=== PATIENT | female | born 1980 ===

== ENCOUNTER 2020-02-09 09:05 | Outpatient (REF) | payer MEDICARE, MEDICAID, SELFPAY | END 2020-02-09 09:06 | disposition home or self-care (01) | LOC: HO.LNP 09:05 | PROVIDERS: PCP Internal Medicine; Referring Provider Internal Medicine; Visit Provider Advanced Practice Midwife | DX: Z34.83 Encounter for supervision of other normal pregnancy, third trimester (principal) | CPT/HCPCS: 87081 ==

== ENCOUNTER → 2020-02-14 11:49 | Outpatient (BNVA) | payer MEDICARE, MEDICAID, SELFPAY | PROVIDERS: PCP Internal Medicine; Visit Provider Advanced Practice Midwife | DX: Z76.89 Persons encountering health services in other specified circumstances (principal) ==

== ENCOUNTER → 2020-02-23 09:49 | Outpatient (BNVA) | payer MEDICARE, MEDICAID, SELFPAY | PROVIDERS: PCP Internal Medicine; Visit Provider Obstetrics & Gynecology | DX: Z76.89 Persons encountering health services in other specified circumstances (principal) ==

== ENCOUNTER → 2020-03-01 14:37 | Outpatient (BNVA) | payer MEDICARE, MEDICAID, SELFPAY | PROVIDERS: PCP Internal Medicine; Visit Provider Obstetrics & Gynecology | DX: Z34.03 Encounter for supervision of normal first pregnancy, third trimester (principal) | CPT/HCPCS: 99212 ==

== ENCOUNTER → 2020-03-08 10:41 | Outpatient (BNVA) | payer MEDICARE, MEDICAID, SELFPAY | PROVIDERS: PCP Internal Medicine; Visit Provider Advanced Practice Midwife | DX: Z76.89 Persons encountering health services in other specified circumstances (principal) ==

== ENCOUNTER 2020-04-26 14:20 | Emergency (ER) | payer MEDICARE, MEDICAID, SELFPAY ==
[2020-04-26 14:41] VITALS: BP 145/76; PULSE 78; RESP 18; TEMP 37.4; O2SAT 100; BMI 25.8
--- NOTE | 2020-04-26 16:48 | XR_ITS ---
EXAMINATION: XR CHEST CLINICAL INFORMATION: Fever. Malaise. Back pain. COMPARISON: 06/08/2017 TECHNIQUE: Frontal view of the chest was obtained. FINDINGS: The lungs are well expanded. There is no focal consolidation, edema, or effusion. Bronchial wall thickening is noted. No pneumothorax. The cardiomediastinal silhouette is within normal limits. No acute osseous abnormality. XR/XR chest 1V IMPRESSION: No consolidation. Bronchial wall thickening can be seen with a small airways process such as asthma or atypical/viral infection.
--- NOTE | 2020-04-26 16:48 | ED.GENADULT ---
HPI - General Adult General Chief complaint: General Medical Stated complaint: covid symptoms Time Seen by Provider: 04/26/20 16:38 Source: patient Mode of arrival: ambulatory Limitations: no limitations History of Present Illness HPI narrative: Patient comes to the emergency room complaining of nausea vomiting, generalized body aches, chills, subjective fever, headache, bilateral upper middle and lower back pain, dysuria. Patient states that all her symptoms started 3 days ago. Patient has 4 young children at home, all of whom are healthy. Patient is 1 month , states she had a normal vaginal delivery. Denies diarrhea. Denies known contact to COVID 19 patients, however patient states that she refuses to be tested for COVID complaint: Generalized malaise Related Data Home Medications Medication Instructions Recorded Confirmed albuterol sulfate 90 mcg/actuation INHALATION 02/06/20 02/09/20 aerosol inhaler vitamin with calcium tab PO 02/06/20 02/09/20 no.72-iron 27 mg-folic acid 1 mg tablet aspirin 81 mg tablet,delayed 81 mg PO DAILY 02/09/20 02/09/20 release ferrous sulfate 325 mg (65 mg 325 mg PO BID 02/09/20 02/09/20 iron) tablet Previous Rx's Medication Instructions Recorded cefdinir 300 mg PO Q12H #19 cap 04/26/20 ketorolac 10 mg PO TID 5 Days #15 tab 04/26/20 Allergies Allergy/AdvReac Type Severity Reaction Status Date / Time No Known Allergies Allergy Mild NOT Verified 03/01/20 15:04 APPLICABLE Review of Systems Review of Systems: Constitutional : Patient complaining of fever, chills, fatigue, generalized malaise ENT/Mouth : No Hearing loss, No Ear Pain, No Nasal Congestion, No Sinus Pain, No Hoarseness, No sore throat, No Rhinorrhea, No Swallowing Difficulty Eyes: No Eye Pain, No Swelling, No Redness, No Foreign Body, No Discharge, No Vision Changes Cardiovascular : No Chest Pain, No SOB, No Dyspnea on Exertion, No Orthopnea, No Edema, No Palpitations Respiratory : No Cough, No Sputum, No Wheezing, No Smoke Exposure, No Dyspnea Gastrointestinal : Patient complaining of nausea vomiting and diarrhea, No Constipation, No abdominal Pain, No Hematochezia, No Melena Genitourinary : no irregular bleeding, No Dysuria, No Urinary Frequency, No Hematuria, No Urinary Incontinence, patient complaining dysuria with no hematuria, questionable bilateral flank pain Musculoskeletal : No joint pain, No Myalgias, No Joint Swelling Skin : No Skin Lesions, No rash Neuro : No Weakness, No Numbness, No Paresthesias, No Loss of Consciousness, No Dizziness, No Headache Psych : No Anxiety/Panic, No Depression, No SI/HI/AH/VH, No Social Issues, Heme/Lymph: No Bruising, No Bleeding,No Lymphadenopathy Endocrine : No Polyuria, No Polydipsia, No Temperature Intolerance FOR[facility] Past Medical History Medical History Depression Gestational diabetes Headache in Hx of Family History Family History Father Diabetes mellitus Kidney disease Paternal Grandmother HTN (hypertension) Arthritis Phlebitis Mother HIV (human immunodeficiency virus infection) Social History Social History Alcohol intake: never Smoking Status: Former smoker Advance Directives: No Advance Directives Information Provided: Yes Gender identity: female Physical Exam Vital Signs: Vital Signs: Last Vital Signs Temp 97.6 F 04/26/20 21: Pulse 94 04/26/20 21: Resp 18 04/26/20 21:23 BP 131/66 04/26/20 21: Pulse Ox 100 04/26/20 21:23 Body Mass Index 25.8 Appearance: Alert. Oriented X3. No acute distress. Eyes: Pupils equal, round and reactive to light. ENT: Pharynx normal. Neck: Normal inspection. Neck supple. No lymph nodes noted. No crepitus CVS: Normal heart rate and rhythm. Pulses normal. Normal S1 and S2 Respiratory: No respiratory distress. Breath sounds normal. No Wheezing. No rales Abdomen: Soft and nontender. No rigidity. No distention. good BS x4 Back: Complaining of pain to minimal palpation in upper back, middle back, lower back, complaining of bilateral flank pain Skin: Skin warm and dry. Normal skin color. Normal skin turgor. Extremities: No lower extremity edema. No lower extremity edema. No Lacerations. No Rash Neuro: Oriented X 3. No motor deficit. No sensory deficit. Moving all extermities. No slurred speech. Course Course Course Narrative: Patient states that she feels much better. Patient has a UTI, white blood cell count elevated, patient's lactic acid within normal limits, patient tachycardic at this time. Sepsis is not suspected. Clinically, patient has pyelonephritis. I discussed admitting the patient to the hospital for IV antibiotics. Patient declined, states she has a 1-month-old baby at home and 3 other young kids and has no one to take care of them if she stays in the hospital. I discussed with the patient that we will be discharging home with antibiotics, pain medicine, and instructed to return to the emergency room if she has any worsening symptoms. Medical Decision Making Lab Data Result diagrams: 04/26/20 16:59 04/26/20 17:53 Labs: Lab Results 04/26/20 04/26/20 04/26/20 Range/Units 16:59 16:59 16:59 WBC 14.0 H (4.8-10.8) X10*3/uL RBC 4.29 (4.20-5.50) X10*6/uL Hgb 12.7 (12.0-16.0) g/dl Hct 37.0 (37-47) % MCV 86.2 (80-98) fL MCH 29.6 (27.0-33.0) pg MCHC 34.3 (31.0-35.0) g/dl RDW 12.1 (11.0-16.0) % Plt Count 167 (160-400) X10*3/uL MPV 10.7 (9.4-12.3) fL Immature Gran % (Auto) 0.6 H (0.0-0.4) % Neut % (Auto) 79.9 H (45-73) % Lymph % (Auto) 5.6 L (20-40) % [place] % (Auto) 13.8 H (2-11) % Eos % (Auto) 0.0 (0-4) % Baso % (Auto) 0.1 (0-2) % Lymph # (Auto) 0.8 L (1.2-4.9) X10*3/uL [place] # (Auto) 1.9 H (0.1-1.2) X10*3/uL Eos # (Auto) 0.0 (0.0-0.4) X10*3/uL Baso # (Auto) 0.0 (0.0-0.2) X10*3/uL Abs Immat Gran (auto) 0.09 H (0.00-0.03) X10*3/uL Absolute Neuts (auto) 11.2 H (2.0-8.3) X10*3/uL Absolute Nucleated RBC 0.000 (0.0-0.012) X10*3/uL Nucleated RBC % (auto) 0.0 (0.0-0.2) /100WBC Smear Tech's Comments VERIFIED Sodium Cancelled Potassium Cancelled Chloride Cancelled Carbon Dioxide Cancelled Anion Gap Cancelled BUN Cancelled Creatinine Cancelled Estim Creat Clear Calc Cancelled Estimated GFR Cancelled Random Glucose Cancelled Fasting Glucose (60-99) mg/dL Lactic Acid 1.0 (0.5-2.0) mmol/L Calcium Cancelled Magnesium (1.6-2.6) mg/dL Total Bilirubin Cancelled Direct Bilirubin Cancelled AST Cancelled ALT Cancelled Alkaline Phosphatase Cancelled Total Protein Cancelled Albumin Cancelled Lipase Cancelled Urine Color Urine Appearance Urine pH (5.0-8.0) Ur Specific [place] (1.005-1.025) Urine Protein (NEG-TRACE) MG/DL Urine Glucose (UA) (NEG) MG/DL Urine Ketones (NEG) MG/DL Urine Blood (NEG) Urine Nitrite (NEG) Ur Leukocyte Esterase (NEG) Urine RBC (0) /HPF Urine WBC (0-4) /HPF Urine WBC Clumps Ur Squamous Epith Cells /LPF Urine Bacteria /LPF Urine Test (NEGATIVE) 04/26/20 04/26/20 04/26/20 Range/Units 17:53 17:53 17:53 WBC (4.8-10.8) X10*3/uL RBC (4.20-5.50) X10*6/uL Hgb (12.0-16.0) g/dl Hct (37-47) % MCV (80-98) fL MCH (27.0-33.0) pg MCHC (31.0-35.0) g/dl RDW (11.0-16.0) % Plt Count (160-400) X10*3/uL MPV (9.4-12.3) fL Immature Gran % (Auto) (0.0-0.4) % Neut % (Auto) (45-73) % Lymph % (Auto) (20-40) % [place] % (Auto) (2-11) % Eos % (Auto) (0-4) % Baso % (Auto) (0-2) % Lymph # (Auto) (1.2-4.9) X10*3/uL [place] # (Auto) (0.1-1.2) X10*3/uL Eos # (Auto) (0.0-0.4) X10*3/uL Baso # (Auto) (0.0-0.2) X10*3/uL Abs Immat Gran (auto) (0.00-0.03) X10*3/uL Absolute Neuts (auto) (2.0-8.3) X10*3/uL Absolute Nucleated RBC (0.0-0.012) X10*3/uL Nucleated RBC % (auto) (0.0-0.2) /100WBC Smear Tech's Comments Sodium 137 Potassium 3.1 L Chloride 105 Carbon Dioxide 21 L Anion Gap 14 BUN 7 L Creatinine 0.88 Estim Creat Clear Calc 89.7 Estimated GFR > 60 Random Glucose Fasting Glucose 105 H (60-99) mg/dL Lactic Acid (0.5-2.0) mmol/L Calcium 8.5 Magnesium 2.0 (1.6-2.6) mg/dL Total Bilirubin 0.7 Direct Bilirubin 0.4 AST 18 ALT 30 Alkaline Phosphatase 108 Total Protein 6.5 Albumin 3.8 Lipase < 4 L Urine Color Urine Appearance Urine pH (5.0-8.0) Ur Specific [place] (1.005-1.025) Urine Protein (NEG-TRACE) MG/DL Urine Glucose (UA) (NEG) MG/DL Urine Ketones (NEG) MG/DL Urine Blood (NEG) Urine Nitrite (NEG) Ur Leukocyte Esterase (NEG) Urine RBC (0) /HPF Urine WBC (0-4) /HPF Urine WBC Clumps Ur Squamous Epith Cells /LPF Urine Bacteria /LPF Urine Test (NEGATIVE) 04/26/20 04/26/20 Range/Units 20:18 20:18 WBC (4.8-10.8) X10*3/uL RBC (4.20-5.50) X10*6/uL Hgb (12.0-16.0) g/dl Hct (37-47) % MCV (80-98) fL MCH (27.0-33.0) pg MCHC (31.0-35.0) g/dl RDW (11.0-16.0) % Plt Count (160-400) X10*3/uL MPV (9.4-12.3) fL Immature Gran % (Auto) (0.0-0.4) % Neut % (Auto) (45-73) % Lymph % (Auto) (20-40) % [place] % (Auto) (2-11) % Eos % (Auto) (0-4) % Baso % (Auto) (0-2) % Lymph # (Auto) (1.2-4.9) X10*3/uL [place] # (Auto) (0.1-1.2) X10*3/uL Eos # (Auto) (0.0-0.4) X10*3/uL Baso # (Auto) (0.0-0.2) X10*3/uL Abs Immat Gran (auto) (0.00-0.03) X10*3/uL Absolute Neuts (auto) (2.0-8.3) X10*3/uL Absolute Nucleated RBC (0.0-0.012) X10*3/uL Nucleated RBC % (auto) (0.0-0.2) /100WBC Smear Tech's Comments Sodium Potassium Chloride Carbon Dioxide Anion Gap BUN Creatinine Estim Creat Clear Calc Estimated GFR Random Glucose Fasting Glucose (60-99) mg/dL Lactic Acid (0.5-2.0) mmol/L Calcium Magnesium (1.6-2.6) mg/dL Total Bilirubin Direct Bilirubin AST ALT Alkaline Phosphatase Total Protein Albumin Lipase Urine Color YELLOW Urine Appearance CLOUDY Urine pH 6.0 (5.0-8.0) Ur Specific [place] 1.015 (1.005-1.025) Urine Protein 2+ H (NEG-TRACE) MG/DL Urine Glucose (UA) NEG (NEG) MG/DL Urine Ketones 40 (NEG) MG/DL Urine Blood 3+ H (NEG) Urine Nitrite POS H (NEG) Ur Leukocyte Esterase 2+ H (NEG) Urine RBC 0-2 (0) /HPF Urine WBC TNTC H (0-4) /HPF Urine WBC Clumps NOTED Ur Squamous Epith Cells NONE /LPF Urine Bacteria 1+ /LPF Urine Test NEGATIVE (NEGATIVE) Imaging Data Chest x-ray: Radiologist's impression: The lungs are well expanded. There is no focal consolidation, edema, or effusion. Bronchial wall thickening is noted. No pneumothorax. The cardiomediastinal silhouette is within normal limits. No acute osseous abnormality. XR/XR chest 1V IMPRESSION: No consolidation. Bronchial wall thickening can be seen with a small airways process such as asthma or atypical/viral infection. Discharge Plan Discharge Clinical Impression: Pyelonephritis, Acute viral syndrome Patient Disposition: Home, Self-Care Instructions: Kidney Infection (ED), Viral Syndrome (ED) Additional Instructions: . If you have worsening pain, fever, worsening symptoms, please return to the emergency room. Please follow-up with your primary care physician tomorrow. If you have any worsening or new symptoms, please return to the emergency room or call 911 Prescriptions: New cefdinir 300 mg capsule 300 mg PO Q12H Qty: 19 RF: 0 ketorolac 10 mg tablet 10 mg PO TID 5 Days Qty: 15 RF: 0 No Action PrePlus 27 mg iron- 1 mg tablet PO RF: 0 albuterol sulfate 90 mcg/actuation HFA aerosol inhaler inhalation RF: 0 aspirin [Adult Aspirin Regimen] 81 mg tablet,delayed release (DR/EC) 81 mg PO DAILY RF: 0 ferrous sulfate 325 mg (65 mg iron) tablet 325 mg PO BID RF: 0
[2020-04-26] MEDS: Acetaminophen 325 MG TABLET 650 MG PO (17:04)
[2020-04-26] MEDS: ondansetron HCL 4 MG/2 ML VIAL IVPUSH (17:04)
[2020-04-26] MEDS: 0.9 % Sodium Chloride 1,000 ML 999 ML IVCONT (17:05)
[2020-04-26 17:07] LABS: Basophils Percent Auto 0.1 % (0-2); Hemoglobin 12.7 g/dl (12.0-16.0); Imm Gran Abs Auto 0.09 X10*3/uL (0.00-0.03); Imm Gran Pct Auto 0.6 % (0.0-0.4); Lymphocytes Absolute Auto 0.8 X10*3/uL (1.2-4.9); Lymphocytes Percent Auto 5.6 % (20-40); MANUAL DIFF FLAG SCAN; Mean Corpuscular HGB Conc 34.3 g/dl (31.0-35.0); Mean Corpuscular Hemoglobin 29.6 pg (27.0-33.0); Mean Corpuscular Volume 86.2 fL (80-98); Mean Platelet Volume 10.7 fL (9.4-12.3); Monocytes Absolute Auto 1.9 X10*3/uL (0.1-1.2); Monocytes Percent Auto 13.8 % (2-11); Neutrophils Absolute Auto 11.2 X10*3/uL (2.0-8.3); Neutrophils Percent Auto 79.9 % (45-73); Platelet Count 167 X10*3/uL (160-400); Red Blood Count 4.29 X10*6/uL (4.20-5.50); Red Cell Distribution Width 12.1 % (11.0-16.0); SCAN SMEAR FLAG 1
[2020-04-26 17:28] LABS: SLIDE REVIEW VERIFIED
[2020-04-26 18:34] LABS: Anion Gap 14 (12-20); Blood Urea Nitrogen 7 mg/dL (9-16); Calcium 8.5 mg/dL (8.4-10.2); Carbon Dioxide 21 mmol/L (22-29); Chloride 105 mmol/L (96-108); Creatinine Clr Calc Pharmacy 89.7; Estimated Glomerular Filt Rate > 60; Glucose Fasting 105 mg/dL (60-99); Potassium 3.1 mmol/l (3.3-5.1); Sodium 137 mmol/L (135-145)
[2020-04-26 18:41] LABS: Alanine Aminotransferase 30 U/L (0-31); Albumin Level 3.8 g/dL (3.5-5.0); Alkaline Phosphatase 108 U/L (39-117); Aspartate Amino Transferase 18 U/L (5-31); Bilirubin Direct 0.4 mg/dL (0.0-0.5); Bilirubin Total 0.7 mg/dL (0.0-1.0); Lipase < 4 U/L (8-78); Total Protein 6.5 g/dL (6.5-8.0)
--- NOTE | 2020-04-26 20:16 | PC.NURSE ---
PT AMBULATORY TO BATHROOM FOR URINE SAMPLE. PT ASKING FOR SOMETHING FOR PAIN. PT HAS ALREADY RECEIVED TYLENOL.
[2020-04-26 20:44] LABS: Glucose Urine UA NEG (NEG); Leukocyte Esterase Urine 2+ (NEG); Nitrite Urine POS (NEG); Specific Gravity - Urine 1.015 (1.005-1.025); Urine Blood 3+ (NEG); Urine Ketones 40 MG/DL (NEG); Urine Protein 2+ MG/DL (NEG-TRACE)
[2020-04-26 20:46] LABS: Appearance Urine CLOUDY; Color Urine YELLOW
[2020-04-26] MEDS: Ketorolac Tromethamine 30 MG/ML VIAL IVPUSH (21:18)
[2020-04-26] MEDS: cefTRIAXone sodium 1 GM in 0.9 % Sodium Chloride 50 ML IV (21:18)
[2020-04-26] MEDS: Potassium Chloride ER 20 MEQ TAB.ER.PRT PO (21:18)
[2020-04-26 21:23] VITALS: BP 131/66; PULSE 94; RESP 18; TEMP 36.4; O2SAT 100
[2020-04-26 21:25] LABS: Bacteria Urine 1+ /LPF; RBC Urine 0-2 /HPF (0); WBC Clumps Urine NOTED; WBC Urine TNTC /HPF (0-4)
[2020-04-26 21:31] LABS: UPreg QC Valid YES; Urine Pregnancy NEGATIVE (NEGATIVE)
[2020-04-26 23:07] VITALS: BP 130/74; PULSE 88; O2SAT 97
--- NOTE | 2020-04-27 07:00 | ED.GENADULT ---
HPI - General Adult General Chief complaint: General Medical Stated complaint: covid symptoms Time Seen by Provider: 04/26/20 16:38 Source: patient Mode of arrival: ambulatory Limitations: no limitations Related Data Home Medications Medication Instructions Recorded Confirmed albuterol sulfate 90 mcg/actuation INHALATION 02/06/20 02/09/20 aerosol inhaler vitamin with calcium tab PO 02/06/20 02/09/20 no.72-iron 27 mg-folic acid 1 mg tablet aspirin 81 mg tablet,delayed 81 mg PO DAILY 02/09/20 02/09/20 release ferrous sulfate 325 mg (65 mg 325 mg PO BID 02/09/20 02/09/20 iron) tablet Previous Rx's Medication Instructions Recorded cefdinir 300 mg PO Q12H #19 cap 04/26/20 ketorolac 10 mg PO TID 5 Days #15 tab 04/26/20 Allergies Allergy/AdvReac Type Severity Reaction Status Date / Time No Known Allergies Allergy Mild NOT Verified 03/01/20 15:04 APPLICABLE PMFSH Past Medical History Medical History Depression Gestational diabetes Headache in Hx of Family History Family History Father Diabetes mellitus Kidney disease Paternal Grandmother HTN (hypertension) Arthritis Phlebitis Mother HIV (human immunodeficiency virus infection) Social History Social History Alcohol intake: never Smoking Status: Former smoker Advance Directives: No Advance Directives Information Provided: Yes Gender identity: female Physical Exam Vital Signs: Vital Signs: Last Vital Signs Temp 97.6 F 04/26/20 21:23 Pulse 88 04/26/20 23:07 Resp 18 04/26/20 21:23 BP 130/74 04/26/20 23:07 Pulse Ox 97 04/26/20 23:07 Body Mass Index 25.8 Course Course Course Narrative: Patient called back again and this time patient picked up the phone patient is still feeling chills and fever and sweating advised to come back to the ER for admission for IV antibiotics patient will be coming soon Medical Decision Making Lab Data Result diagrams: 04/26/20 16:59 04/26/20 17:53 Labs: Lab Results 04/26/20 04/26/20 04/26/20 Range/Units 16:59 16:59 16:59 WBC 14.0 H (4.8-10.8) X10*3/uL RBC 4.29 (4.20-5.50) X10*6/uL Hgb 12.7 (12.0-16.0) g/dl Hct 37.0 (37-47) % MCV 86.2 (80-98) fL MCH 29.6 (27.0-33.0) pg MCHC 34.3 (31.0-35.0) g/dl RDW 12.1 (11.0-16.0) % Plt Count 167 (160-400) X10*3/uL MPV 10.7 (9.4-12.3) fL Immature Gran % (Auto) 0.6 H (0.0-0.4) % Neut % (Auto) 79.9 H (45-73) % Lymph % (Auto) 5.6 L (20-40) % [place] % (Auto) 13.8 H (2-11) % Eos % (Auto) 0.0 (0-4) % Baso % (Auto) 0.1 (0-2) % Lymph # (Auto) 0.8 L (1.2-4.9) X10*3/uL [place] # (Auto) 1.9 H (0.1-1.2) X10*3/uL Eos # (Auto) 0.0 (0.0-0.4) X10*3/uL Baso # (Auto) 0.0 (0.0-0.2) X10*3/uL Abs Immat Gran (auto) 0.09 H (0.00-0.03) X10*3/uL Absolute Neuts (auto) 11.2 H (2.0-8.3) X10*3/uL Absolute Nucleated RBC 0.000 (0.0-0.012) X10*3/uL Nucleated RBC % (auto) 0.0 (0.0-0.2) /100WBC Smear Tech's Comments VERIFIED Sodium Cancelled Potassium Cancelled Chloride Cancelled Carbon Dioxide Cancelled Anion Gap Cancelled BUN Cancelled Creatinine Cancelled Estim Creat Clear Calc Cancelled Estimated GFR Cancelled Random Glucose Cancelled Fasting Glucose (60-99) mg/dL Lactic Acid 1.0 (0.5-2.0) mmol/L Calcium Cancelled Magnesium (1.6-2.6) mg/dL Total Bilirubin Cancelled Direct Bilirubin Cancelled AST Cancelled ALT Cancelled Alkaline Phosphatase Cancelled Total Protein Cancelled Albumin Cancelled Lipase Cancelled Urine Color Urine Appearance Urine pH (5.0-8.0) Ur Specific [place] (1.005-1.025) Urine Protein (NEG-TRACE) MG/DL Urine Glucose (UA) (NEG) MG/DL Urine Ketones (NEG) MG/DL Urine Blood (NEG) Urine Nitrite (NEG) Ur Leukocyte Esterase (NEG) Urine RBC (0) /HPF Urine WBC (0-4) /HPF Urine WBC Clumps Ur Squamous Epith Cells /LPF Urine Bacteria /LPF Urine Test (NEGATIVE) 04/26/20 04/26/20 04/26/20 Range/Units 17:53 17:53 17:53 WBC (4.8-10.8) X10*3/uL RBC (4.20-5.50) X10*6/uL Hgb (12.0-16.0) g/dl Hct (37-47) % MCV (80-98) fL MCH (27.0-33.0) pg MCHC (31.0-35.0) g/dl RDW (11.0-16.0) % Plt Count (160-400) X10*3/uL MPV (9.4-12.3) fL Immature Gran % (Auto) (0.0-0.4) % Neut % (Auto) (45-73) % Lymph % (Auto) (20-40) % [place] % (Auto) (2-11) % Eos % (Auto) (0-4) % Baso % (Auto) (0-2) % Lymph # (Auto) (1.2-4.9) X10*3/uL [place] # (Auto) (0.1-1.2) X10*3/uL Eos # (Auto) (0.0-0.4) X10*3/uL Baso # (Auto) (0.0-0.2) X10*3/uL Abs Immat Gran (auto) (0.00-0.03) X10*3/uL Absolute Neuts (auto) (2.0-8.3) X10*3/uL Absolute Nucleated RBC (0.0-0.012) X10*3/uL Nucleated RBC % (auto) (0.0-0.2) /100WBC Smear Tech's Comments Sodium 137 Potassium 3.1 L Chloride 105 Carbon Dioxide 21 L Anion Gap 14 BUN 7 L Creatinine 0.88 Estim Creat Clear Calc 89.7 Estimated GFR > 60 Random Glucose Fasting Glucose 105 H (60-99) mg/dL Lactic Acid (0.5-2.0) mmol/L Calcium 8.5 Magnesium 2.0 (1.6-2.6) mg/dL Total Bilirubin 0.7 Direct Bilirubin 0.4 AST 18 ALT 30 Alkaline Phosphatase 108 Total Protein 6.5 Albumin 3.8 Lipase < 4 L Urine Color Urine Appearance Urine pH (5.0-8.0) Ur Specific [place] (1.005-1.025) Urine Protein (NEG-TRACE) MG/DL Urine Glucose (UA) (NEG) MG/DL Urine Ketones (NEG) MG/DL Urine Blood (NEG) Urine Nitrite (NEG) Ur Leukocyte Esterase (NEG) Urine RBC (0) /HPF Urine WBC (0-4) /HPF Urine WBC Clumps Ur Squamous Epith Cells /LPF Urine Bacteria /LPF Urine Test (NEGATIVE) 04/26/20 04/26/20 Range/Units 20:18 20:18 WBC (4.8-10.8) X10*3/uL RBC (4.20-5.50) X10*6/uL Hgb (12.0-16.0) g/dl Hct (37-47) % MCV (80-98) fL MCH (27.0-33.0) pg MCHC (31.0-35.0) g/dl RDW (11.0-16.0) % Plt Count (160-400) X10*3/uL MPV (9.4-12.3) fL Immature Gran % (Auto) (0.0-0.4) % Neut % (Auto) (45-73) % Lymph % (Auto) (20-40) % [place] % (Auto) (2-11) % Eos % (Auto) (0-4) % Baso % (Auto) (0-2) % Lymph # (Auto) (1.2-4.9) X10*3/uL [place] # (Auto) (0.1-1.2) X10*3/uL Eos # (Auto) (0.0-0.4) X10*3/uL Baso # (Auto) (0.0-0.2) X10*3/uL Abs Immat Gran (auto) (0.00-0.03) X10*3/uL Absolute Neuts (auto) (2.0-8.3) X10*3/uL Absolute Nucleated RBC (0.0-0.012) X10*3/uL Nucleated RBC % (auto) (0.0-0.2) /100WBC Smear Tech's Comments Sodium Potassium Chloride Carbon Dioxide Anion Gap BUN Creatinine Estim Creat Clear Calc Estimated GFR Random Glucose Fasting Glucose (60-99) mg/dL Lactic Acid (0.5-2.0) mmol/L Calcium Magnesium (1.6-2.6) mg/dL Total Bilirubin Direct Bilirubin AST ALT Alkaline Phosphatase Total Protein Albumin Lipase Urine Color YELLOW Urine Appearance CLOUDY Urine pH 6.0 (5.0-8.0) Ur Specific [place] 1.015 (1.005-1.025) Urine Protein 2+ H (NEG-TRACE) MG/DL Urine Glucose (UA) NEG (NEG) MG/DL Urine Ketones 40 (NEG) MG/DL Urine Blood 3+ H (NEG) Urine Nitrite POS H (NEG) Ur Leukocyte Esterase 2+ H (NEG) Urine RBC 0-2 (0) /HPF Urine WBC TNTC H (0-4) /HPF Urine WBC Clumps NOTED Ur Squamous Epith Cells NONE /LPF Urine Bacteria 1+ /LPF Urine Test NEGATIVE (NEGATIVE) Discharge Plan Discharge Clinical Impression: Pyelonephritis, Acute viral syndrome Patient Disposition: Home, Self-Care Instructions: Kidney Infection (ED), Viral Syndrome (ED) Additional Instructions: . If you have worsening pain, fever, worsening symptoms, please return to the emergency room. Please follow-up with your primary care physician tomorrow. If you have any worsening or new symptoms, please return to the emergency room or call 911 Prescriptions: New cefdinir 300 mg capsule 300 mg PO Q12H Qty: 19 RF: 0 ketorolac 10 mg tablet 10 mg PO TID 5 Days Qty: 15 RF: 0 No Action PrePlus 27 mg iron- 1 mg tablet PO RF: 0 albuterol sulfate 90 mcg/actuation HFA aerosol inhaler inhalation RF: 0 aspirin [Adult Aspirin Regimen] 81 mg tablet,delayed release (DR/EC) 81 mg PO DAILY RF: 0 ferrous sulfate 325 mg (65 mg iron) tablet 325 mg PO BID RF: 0 Interventions: ED Discharge Assessment Last Done: 04/26/20 23:08 Discharge Date/Time: 04/26/20 23:09
== END 2020-04-26 23:09 | disposition home or self-care (01) ==
PROVIDERS: Emergency Provider Emergency Medicine
DX: B34.9 Viral infection, unspecified (principal); N12 Tubulo-interstitial nephritis, not specified as acute or chronic
CPT/HCPCS: 36415; 71045; 80048; 80076; 81001; 81025; 83605; 83690; 83735; 85025; 87040; 87077; 87086; 87088; 87186; 96361; 96365; 96375; 99283; 99284; J0696; J1885; J2405

== ENCOUNTER 2020-04-27 10:43 | Emergency (ER) | payer MEDICARE, MEDICAID, SELFPAY ==
[2020-04-27 10:57] VITALS: BP 126/75; PULSE 106; RESP 18; TEMP 37.3; O2SAT 100; BMI 24.4
--- NOTE | 2020-04-27 10:59 | CT_ITS ---
EXAMINATION: CT ABDOMEN AND PELVIS WITH CONTRAST CLINICAL INFORMATION: Flank pain. COMPARISON: CT scan of the abdomen and pelvis dated 08/25/2006. TECHNIQUE: Multidetector volumetric images were obtained from the superior aspect of the liver through the pubic symphysis following administration 85 mL of Omnipaque 350 intravenous contrast. Sagittal and coronal reformatted images were obtained on the technologist's workstation. Oral contrast: No This CT examination was performed using dose optimization techniques as appropriate, variously including the following: *Automated exposure control *Adjustment of mA and/or kV according to patient size (this includes techniques or standardized protocols for targeted exams where dose is matched to indication/reason for exam; i.e. extremities or head) *Use of iterative reconstruction technique DLP: 801 mGy-cm FINDINGS: LUNG BASES: The visualized lung bases are unremarkable. LIVER, GALLBLADDER, AND BILIARY TREE: Mild hepatic enlargement and decreased attenuation without focal abnormality. PANCREAS: Unremarkable. SPLEEN: Borderline enlargement measuring up to 13.7 cm. No focal abnormality. ADRENAL GLANDS: Unremarkable. KIDNEYS AND URETERS: The right kidney shows mild asymmetric enlargement with cortical striations. This is seen to a lesser extent in the left kidney. No nephrolithiasis or hydroureteronephrosis. BLADDER: Incompletely distended without focal abnormality. GASTROINTESTINAL TRACT: The stomach, small bowel, appendix and large bowel are unremarkable. ABDOMINAL WALL: No significant hernia is appreciated. LYMPH NODES: No lymphadenopathy. VASCULAR: Unremarkable. PELVIC VISCERA: Interval enlargement of the uterus without focal abnormality. No adnexal abnormality. OSSEOUS STRUCTURES: Unremarkable. CT/CT abdomen pelvis w con IMPRESSION: 1. Bilateral pyelonephritis, right greater than left without other associated abnormality. 2. Hepatic and splenic prominence without focal abnormality. This is more pronounced compared the previous study and could be secondary to the patient's status. Mild steatosis could not be stated. Correlation with liver function tests is recommended. 3. Interval enlargement of the uterus is consistent with the patient's status. This critical result was discussed with Dr. Ayoub at 1:30 PM on 04/27/2020 and it was ascertained that the content and urgency of the report was understood at the time of direct communication.
--- NOTE | 2020-04-27 11:00 | ED.RECABL ---
HPI - Recheck/Abnormal Lab/Rx General Chief Complaint: Recheck/Abnormal Lab/Rx Stated Complaint: ABNORMAL LAB RESULTS Time Seen by Provider: 04/27/20 10:46 Source: patient and old records reviewed Mode of arrival: ambulatory Limitations: no limitations History of Present Illness complaint: abnormal lab (2/2 GNR in blood) Initial visit (ago): day(s) (1 day on 04/26) Initial visit for: other (pyelonephritis refused admit) Returns today for: called because of abnormal lab/test Symptoms since prior visit: worsening pain Context: called for abnormal lab result Associated symptoms: fever, chills, malaise, nausea and abdominal pain Treatments prior to arrival: other (unable to fill her Rx at this time) Related Data Home Medications Medication Instructions Recorded Confirmed albuterol sulfate 90 mcg/actuation INHALATION 02/06/20 02/09/20 aerosol inhaler vitamin with calcium tab PO 02/06/20 02/09/20 no.72-iron 27 mg-folic acid 1 mg tablet aspirin 81 mg tablet,delayed 81 mg PO DAILY 02/09/20 02/09/20 release ferrous sulfate 325 mg (65 mg 325 mg PO BID 02/09/20 02/09/20 iron) tablet Previous Rx's Medication Instructions Recorded cefdinir 300 mg PO Q12H #19 cap 04/26/20 ketorolac 10 mg PO TID 5 Days #15 tab 04/26/20 Allergies Allergy/AdvReac Type Severity Reaction Status Date / Time No Known Allergies Allergy Mild NOT Verified 04/27/20 11:00 APPLICABLE Review of Systems Review of Systems: Constitutional : pos Fever, pos Chills ENT/Mouth : No sore throat Eyes: No Eye Pain, No Swelling, No Redness Cardiovascular : No Chest Pain, No SOB Respiratory : No Cough, No Sputum, No Wheezing Gastrointestinal : positive Nausea, no Vomiting, No Diarrhea, positive abdominal pain Genitourinary : positive Dysuria, positive urinary frequency, no Hematuria, positive Flank Pain, positive hesitancy Musculoskeletal : No joint pain, No Myalgias Skin : No Skin Lesions, No rash Neuro : pos Weakness, No Numbness, No Headache Psych : No Anxiety/Panic, No Depression Heme/Lymph: No Bruising, No Lymphadenopathy Endocrine : No Polyuria, No Polydipsia All other systems reviewed and are negative [facility] Past Medical History Attestation statement: The following information was validated with the patient. Medical History Depression Gestational diabetes Headache in Hx of Family History Family History Father Diabetes mellitus Kidney disease Paternal Grandmother HTN (hypertension) Arthritis Phlebitis Mother HIV (human immunodeficiency virus infection) Social History Social History Alcohol intake: never Smoking Status: Never smoker Use of substances other than those prescribed or required for medical reasons: No Advance Directives: No Advance Directives Information Provided: Yes Gender identity: female Physical Exam Vital Signs: Vital Signs: Last Vital Signs Temp 99.2 F 04/27/20 12:50 Pulse 79 04/27/20 12:50 Resp 20 04/27/20 12:50 BP 110/61 04/27/20 12:50 Pulse Ox 99 04/27/20 12:50 Body Mass Index 24.4 Appearance: Alert. Oriented X3. in pain, anxious, mild acute distress. Eyes: Pupils equal, round and reactive to light. ENT: Pharynx dry MMM Neck: Normal inspection. Neck supple. CVS: Normal heart rate and rhythm. Pulses normal. Respiratory: No respiratory distress. Breath sounds normal. Abdomen: Soft and moderate L CVA tenderness. Skin: Skin warm and dry. pale skin color. Normal skin turgor. Extremities: No lower extremity edema. No calf ttp Neuro: Oriented X 3. No motor deficit. No sensory deficit. Course Course Course Narrative: patient still wants to leave AMA, alert and oriented x 3, aware I am concerned for life threatening infection and states she has no one to care for her children CT Scan bilateral pyelonephritis - patient still refuses to stay MDM - Recheck/Abnormal Lab/Rx MDM Narrative Medical decision making narrative: 39 yo female with pyelonephritis just seen on 04/26 now has 2/2 GNR bacteremia has sig L flank pain will repeat labs, cultures, dose with IV ceftriaxone and CT scan for perinephric abscess - patient states she cannot stay in the hospital she adamantly refuses I told her this was life threatening and she could , she states she is aware and has no one to care for her children, she also was not able to fill her Rx, she states she plans to come to the ED daily for IV antibiotis Lab Data Result diagrams: 04/27/20 11:07 04/27/20 11:41 Labs: Lab Results 04/27/20 04/27/20 04/27/20 Range/Units 11:07 11:07 11:07 WBC 14.6 H (4.8-10.8) X10*3/uL RBC 4.19 L (4.20-5.50) X10*6/uL Hgb 12.3 (12.0-16.0) g/dl Hct 36.2 L (37-47) % MCV 86.4 (80-98) fL MCH 29.4 (27.0-33.0) pg MCHC 34.0 (31.0-35.0) g/dl RDW 12.4 (11.0-16.0) % Plt Count 182 (160-400) X10*3/uL MPV 11.4 (9.4-12.3) fL Immature Gran % (Auto) 0.8 H (0.0-0.4) % Neut % (Auto) 80.2 H (45-73) % Lymph % (Auto) 6.9 L (20-40) % [place] % (Auto) 12.0 H (2-11) % Eos % (Auto) 0.0 (0-4) % Baso % (Auto) 0.1 (0-2) % Lymph # (Auto) 1.0 L (1.2-4.9) X10*3/uL [place] # (Auto) 1.7 H (0.1-1.2) X10*3/uL Eos # (Auto) 0.0 (0.0-0.4) X10*3/uL Baso # (Auto) 0.0 (0.0-0.2) X10*3/uL Abs Immat Gran (auto) 0.11 H (0.00-0.03) X10*3/uL Absolute Neuts (auto) 11.7 H (2.0-8.3) X10*3/uL Absolute Nucleated RBC 0.000 (0.0-0.012) X10*3/uL Nucleated RBC % (auto) 0.0 (0.0-0.2) /100WBC Hold Blue Top SEE NOTE Sodium Cancelled Potassium Cancelled Chloride Cancelled Carbon Dioxide Cancelled Anion Gap Cancelled BUN Cancelled Creatinine Cancelled Estim Creat Clear Calc Cancelled Estimated GFR Cancelled Random Glucose Cancelled Lactic Acid (0.5-2.0) mmol/L Calcium Cancelled Magnesium Cancelled 04/27/20 04/27/20 Range/Units 11:07 11:41 WBC (4.8-10.8) X10*3/uL RBC (4.20-5.50) X10*6/uL Hgb (12.0-16.0) g/dl Hct (37-47) % MCV (80-98) fL MCH (27.0-33.0) pg MCHC (31.0-35.0) g/dl RDW (11.0-16.0) % Plt Count (160-400) X10*3/uL MPV (9.4-12.3) fL Immature Gran % (Auto) (0.0-0.4) % Neut % (Auto) (45-73) % Lymph % (Auto) (20-40) % [place] % (Auto) (2-11) % Eos % (Auto) (0-4) % Baso % (Auto) (0-2) % Lymph # (Auto) (1.2-4.9) X10*3/uL [place] # (Auto) (0.1-1.2) X10*3/uL Eos # (Auto) (0.0-0.4) X10*3/uL Baso # (Auto) (0.0-0.2) X10*3/uL Abs Immat Gran (auto) (0.00-0.03) X10*3/uL Absolute Neuts (auto) (2.0-8.3) X10*3/uL Absolute Nucleated RBC (0.0-0.012) X10*3/uL Nucleated RBC % (auto) (0.0-0.2) /100WBC Hold Blue Top Sodium 134 L Potassium 3.2 L Chloride 106 Carbon Dioxide 19 L Anion Gap 12 BUN 7 L Creatinine 0.85 Estim Creat Clear Calc 92.8 Estimated GFR > 60 Random Glucose 130 H Lactic Acid 1.5 (0.5-2.0) mmol/L Calcium 7.5 L D Magnesium 1.9 Discharge Plan Discharge Clinical Impression: Pyelonephritis, Bacteremia Patient Disposition: Left Against Medical Advice Instructions: Kidney Infection (ED), Against Medical Advice (ED), Bacteremia (ED) Additional Instructions: return to ED for any worsening symptoms or concerns COME BACK TO THE ED you need IV antibiotics Prescriptions: No Action cefdinir 300 mg capsule 300 mg PO Q12H Qty: 19 RF: 0 ketorolac 10 mg tablet 10 mg PO TID 5 Days Qty: 15 RF: 0 PrePlus 27 mg iron- 1 mg tablet PO RF: 0 albuterol sulfate 90 mcg/actuation HFA aerosol inhaler inhalation RF: 0 aspirin [Adult Aspirin Regimen] 81 mg tablet,delayed release (DR/EC) 81 mg PO DAILY RF: 0 ferrous sulfate 325 mg (65 mg iron) tablet 325 mg PO BID RF: 0 Referrals: Ade Ayoub DO [Emergency Provider] - 1 day
[2020-04-27 11:11] VITALS: RESP 16
[2020-04-27] MEDS: cefTRIAXone sodium 1 GM in 0.9 % Sodium Chloride 50 ML IV (11:11)
[2020-04-27] MEDS: ondansetron HCL 4 MG/2 ML VIAL IVPUSH (11:11)
[2020-04-27] MEDS: Morphine Sulfate 4 MG/ML CARTRIDGE IVPUSH (11:11)
[2020-04-27] MEDS: 0.9 % Sodium Chloride 1,000 ML 999 ML IVCONT (11:11)
[2020-04-27] MEDS: Acetaminophen 325 MG TABLET 650 MG PO (11:12)
[2020-04-27 11:16] LABS: Basophils Percent Auto 0.1 % (0-2); Hematocrit 36.2 % (37-47); Hemoglobin 12.3 g/dl (12.0-16.0); Imm Gran Abs Auto 0.11 X10*3/uL (0.00-0.03); Imm Gran Pct Auto 0.8 % (0.0-0.4); Lymphocytes Percent Auto 6.9 % (20-40); Mean Corpuscular Hemoglobin 29.4 pg (27.0-33.0); Mean Corpuscular Volume 86.4 fL (80-98); Mean Platelet Volume 11.4 fL (9.4-12.3); Monocytes Absolute Auto 1.7 X10*3/uL (0.1-1.2); Neutrophils Absolute Auto 11.7 X10*3/uL (2.0-8.3); Neutrophils Percent Auto 80.2 % (45-73); Platelet Count 182 X10*3/uL (160-400); Red Blood Count 4.19 X10*6/uL (4.20-5.50); Red Cell Distribution Width 12.4 % (11.0-16.0); SCAN SMEAR FLAG 1; White Blood Count 14.6 X10*3/uL (4.8-10.8)
[2020-04-27 11:17] LABS: MANUAL DIFF FLAG NO
--- NOTE | 2020-04-27 11:23 | PC.NURSE ---
pt refuses juan veras md aware
[2020-04-27 11:35] LABS: Lactic Acid 1.5 mmol/L (0.5-2.0)
[2020-04-27 12:08] VITALS: BP 114/59; PULSE 94; RESP 18; TEMP 37.5; O2SAT 98
[2020-04-27] MEDS: iohexoL 350 MG/ML 100 ML INFUS..BTL 85 ML IV (12:09)
[2020-04-27 12:16] LABS: Anion Gap 12 (12-20); Blood Urea Nitrogen 7 mg/dL (9-16); Calcium 7.5 mg/dL (8.4-10.2); Carbon Dioxide 19 mmol/L (22-29); Chloride 106 mmol/L (96-108); Creatinine Clr Calc Pharmacy 92.8; Estimated Glomerular Filt Rate > 60; Glucose Random 130 mg/dL (60-115); Magnesium 1.9 mg/dL (1.6-2.6); Potassium 3.2 mmol/l (3.3-5.1); Sodium 134 mmol/L (135-145)
[2020-04-27] MEDS: Potassium Chloride ER 20 MEQ TAB.ER.PRT 40 MEQ PO (12:44)
[2020-04-27] MEDS: Calcium Gluconate/NaCl,Iso-Osm 2 GM/100 ML PLAST..BAG IV (12:46)
[2020-04-27 12:50] VITALS: BP 110/61; PULSE 79; RESP 20; TEMP 37.3; O2SAT 99
== END 2020-04-27 14:11 | disposition left against medical advice (07) ==
PROVIDERS: Emergency Provider Emergency Medicine; PCP Internal Medicine
DX: N12 Tubulo-interstitial nephritis, not specified as acute or chronic (principal); B96.89 Other specified bacterial agents as the cause of diseases classified elsewhere; R50.9 Fever, unspecified; R10.9 Unspecified abdominal pain; R79.89 Other specified abnormal findings of blood chemistry; Z79.899 Other long term (current) drug therapy; Z20.828 Contact with and (suspected) exposure to other viral communicable diseases
CPT/HCPCS: 36415; 74177; 80048; 83605; 83735; 85025; 87040; 87147; 96361; 96365; 96367; 96375; 99284; J0610; J0696; J2270; J2405; Q9967

== ENCOUNTER 2020-04-28 09:13 | Emergency (ER) | payer MEDICARE, MEDICAID, SELFPAY ==
--- NOTE | 2020-04-28 09:17 | ED.GENADULT ---
HPI - General Adult General Chief complaint: General Medical <Ade Ayoub DO - Last Filed: 04/28/20 09:28> Stated complaint: IV antibiotics <Ade Ayoub DO - Last Filed: 04/28/20 09:28> Time Seen by Provider: 04/28/20 09:14 <Ade Ayoub DO - Last Filed: 04/28/20 09:28> Source: patient and old records reviewed <Ade Ayoub DO - Last Filed: 04/28/20 09:28> Mode of arrival: ambulatory <Ade Ayoub DO - Last Filed: 04/28/20 09:28> Limitations: no limitations <Ade Ayoub DO - Last Filed: 04/28/20 09:28> History of Present Illness HPI narrative: 2/2 GNR from 04/26 blood cultures from bilateral pyelo has not been able to stay in the hospital due to childcare issues, has been coming daily for IV antibiotics <Ade Ayoub DO - Last Filed: 04/28/20 09:28> MD complaint: IV antibiotics for pyelo and known GNR in blood culture 2/2 <Ade Ayoub DO - Last Filed: 04/28/20 09:28> Onset (ago): day(s) (3) <Ade Ayoub DO - Last Filed: 04/28/20 09:28> Location: back <Ade Ayoub DO - Last Filed: 04/28/20 09:28> Radiation: back <Ade Ayoub DO - Last Filed: 04/28/20 09:28> Severity: moderate <Ade Ayoub DO - Last Filed: 04/28/20 09:28> Quality: aching <Ade Ayoub DO - Last Filed: 04/28/20 09:28> Relieving factors: none <Ade Ayoub DO - Last Filed: 04/28/20 09:28> Exacerbating factors: none <Ade Ayoub DO - Last Filed: 04/28/20 09:28> Associated symptoms: fever/chills and loss of appetite <Ade Ayoub DO - Last Filed: 04/28/20 09:28> Treatments prior to arrival: other (3rd dose of IV antibiotics) <Ade Ayoub DO - Last Filed: 04/28/20 09:28> Related Data Home medications: Home Medications Medication Instructions Recorded Confirmed albuterol sulfate 90 mcg/actuation INHALATION 02/06/20 02/09/20 aerosol inhaler vitamin with calcium tab PO 02/06/20 02/09/20 no.72-iron 27 mg-folic acid 1 mg tablet aspirin 81 mg tablet,delayed 81 mg PO DAILY 02/09/20 02/09/20 release ferrous sulfate 325 mg (65 mg 325 mg PO BID 02/09/20 02/09/20 iron) tablet Previous Rx's Medication Instructions Recorded cefdinir 300 mg PO Q12H #19 cap 04/26/20 ketorolac 10 mg PO TID 5 Days #15 tab 04/26/20 <Ade Ayoub DO - Last Filed: 04/28/20 09:28> Allergies/adverse reactions: Allergies Allergy/AdvReac Type Severity Reaction Status Date / Time No Known Allergies Allergy Mild NOT Verified 04/27/20 11:00 APPLICABLE <Ade Ayoub DO - Last Filed: 04/28/20 09:28> Review of Systems Review of Systems: Constitutional : No Weight loss, pos Fever, pos Chills ENT/Mouth : No sore throat, No Rhinorrhea Eyes: No Swelling, No Redness Cardiovascular : No Chest Pain, No SOB, NoEdema Respiratory : No Cough, No Sputum, No Wheezing Gastrointestinal : Positive Nausea, no Vomiting, no Diarrhea, positive abdominal Pain, No Hematochezia, No Melena Back: bilateral back pain Genitourinary : No Dysuria, No Urinary Frequency, No Hematuria, No Urgency Musculoskeletal : No joint pain, No Myalgias, No Joint Swelling Skin : No Skin Lesions, No rash Neuro : No Weakness, No Numbness, No Dizziness, No Headache Psych : No Anxiety/Panic, No Depression Heme/Lymph: No Bruising, No Lymphadenopathy Endocrine : No Polyuria, No Polydipsia All other systems reviewed and are negative. <DO Jaswinder Felipe Last Filed: 04/28/20 09:28> [facility] Past Medical History Attestation statement: The following information was validated with the patient. <DO Jaswinder Felipe Last Filed: 04/28/20 09:28> Medical History: Medical History Depression Gestational diabetes Headache in Hx of <Ade Ayoub DO - Last Filed: 04/28/20 09:28> Family History Family History: Family History Father Diabetes mellitus Kidney disease Paternal Grandmother HTN (hypertension) Arthritis Phlebitis Mother HIV (human immunodeficiency virus infection) <Ade Ayoub DO - Last Filed: 04/28/20 09:28> Social History Social History: Social History Alcohol intake: never Smoking Status: Never smoker Advance Directives: No Advance Directives Information Provided: Yes Gender identity: female <Ade Ayoub DO - Last Filed: 04/28/20 09:28> Physical Exam Vital Signs: Vital Signs: Last Vital Signs Temp 99.3 F 04/28/20 10:39 Pulse 76 04/28/20 10:39 Resp 16 04/28/20 10:39 BP 104/83 04/28/20 10:39 Pulse Ox 100 04/28/20 10:39 Body Mass Index 25.5 <Ade Ayoub DO - Last Filed: 04/28/20 09:28> Vital Signs: Last Vital Signs Temp 99.3 F 04/28/20 10:39 Pulse 76 04/28/20 10:39 Resp 16 04/28/20 10:39 BP 104/83 04/28/20 10:39 Pulse Ox 100 04/28/20 10:39 Body Mass Index 25.5 <Helio August NP - Last Filed: 04/28/20 14:19> Appearance: Alert. Oriented X3. No acute distress. Eyes: Pupils equal, round and reactive to light. ENT: Pharynx normal. Neck: Normal inspection. Neck supple. CVS: Normal heart rate and rhythm. Pulses normal. Respiratory: No respiratory distress. Breath sounds normal. Abdomen: Soft and nontender. Back: bilateral CVA ttp moderate Skin: Skin warm and dry. Normal skin color. Normal skin turgor. Extremities: No lower extremity edema. No calf ttp Neuro: Oriented X 3. No motor deficit. No sensory deficit. <Ade Ayoub DO - Last Filed: 04/28/20 09:28> Course Course Course Narrative: lab will not have susceptibilitis until tomorrow <Ade Ayoub DO - Last Filed: 04/28/20 09:28> Reevaluation(s) Reevaluation #1: 1400 Call from lab with blood culture 1 of 2 positive with Gram-positive cocci in cluster. Attending who evaluated patient this morning aware known history of bacteremia currently being treated IV antibiotics refusing admission. Will return for additional biotics tomorrow. <Helio August NP - Last Filed: 04/28/20 14:19> Medical Decision Making MDM Narrative Medical decision making narrative: 39 yo female with known pyelo and 2/2 GNR bacteremia from 04/26 comes today for her dose of IV antibiotics, refuses admission due to childcare issues, will redose with IV ceftriaxone will still not stay in ED, call to lab for organism and susceptibility - overall today the patient does look better <Ade Ayoub DO - Last Filed: 04/28/20 09:28> Discharge Plan Discharge Clinical Impression: Bacteremia <Ade Ayoub DO - Last Filed: 04/28/20 09:28> Patient Disposition: Home, Self-Care <Ade Ayoub DO - Last Filed: 04/28/20 09:28> Instructions: Bacteremia (ED) <Ade Ayoub DO - Last Filed: 04/28/20 09:28> Additional Instructions: return to ED for any worsening symptoms or concerns come back tomorrow for repeat dose <Ade Ayoub DO - Last Filed: 04/28/20 09:28> Prescriptions: No Action cefdinir 300 mg capsule 300 mg PO Q12H Qty: 19 RF: 0 ketorolac 10 mg tablet 10 mg PO TID 5 Days Qty: 15 RF: 0 PrePlus 27 mg iron- 1 mg tablet PO RF: 0 albuterol sulfate 90 mcg/actuation HFA aerosol inhaler inhalation RF: 0 aspirin [Adult Aspirin Regimen] 81 mg tablet,delayed release (DR/EC) 81 mg PO DAILY RF: 0 ferrous sulfate 325 mg (65 mg iron) tablet 325 mg PO BID RF: 0 <DO Jaswinder Felipe Last Filed: 04/28/20 09:28> Interventions: ED Discharge Assessment Last Done: 04/28/20 11:03 <Ade Ayoub DO - Last Filed: 04/28/20 09:28> Discharge Date/Time: 04/28/20 11:04 <Ade Ayoub DO - Last Filed: 04/28/20 09:28> Print Language: Bengali <Ade Ayoub DO - Last Filed: 04/28/20 09:28>
[2020-04-28 09:23] VITALS: BP 132/77; PULSE 77; RESP 16; TEMP 37.3; O2SAT 100; BMI 25.5
[2020-04-28] MEDS: cefTRIAXone sodium 1 GM in 0.9 % Sodium Chloride 50 ML IV (09:43)
[2020-04-28 10:39] VITALS: BP 104/83; PULSE 76; RESP 16; TEMP 37.4; O2SAT 100
[2020-04-28] MEDS: Acetaminophen 325 MG TABLET 650 MG PO (10:59)
== END 2020-04-28 11:04 | disposition home or self-care (01) ==
PROVIDERS: Emergency Provider Emergency Medicine; PCP Internal Medicine
DX: R78.81 Bacteremia (principal)
CPT/HCPCS: 96372; 99284; J0696

== ENCOUNTER 2020-04-29 10:35 | Emergency (ER) | payer MEDICARE, MEDICAID, SELFPAY ==
[2020-04-29 10:39] VITALS: BP 136/74; PULSE 76; RESP 17; TEMP 37.3; O2SAT 99; BMI 25.5
--- NOTE | 2020-04-29 10:53 | ED.GENADULT ---
HPI - General Adult General Chief complaint: General Medical Stated complaint: blood transfusion Time Seen by Provider: 04/29/20 10:39 Source: patient Mode of arrival: ambulatory Limitations: no limitations History of Present Illness MD complaint: bacteremia from 04/26 Onset (ago): day(s) (5) Location: back Radiation: non-radiation Severity: moderate Quality: aching Pain Consistency: constant Relieving factors: other (has been doing much better with IV antibiotics) Exacerbating factors: none Associated symptoms: other (has some nausea) Treatments prior to arrival: other (4th dose of IV antibiotics today) Related Data Home Medications Medication Instructions Recorded Confirmed albuterol sulfate 90 mcg/actuation INHALATION 02/06/20 02/09/20 aerosol inhaler vitamin with calcium tab PO 02/06/20 02/09/20 no.72-iron 27 mg-folic acid 1 mg tablet aspirin 81 mg tablet,delayed 81 mg PO DAILY 02/09/20 02/09/20 release ferrous sulfate 325 mg (65 mg 325 mg PO BID 02/09/20 02/09/20 iron) tablet Previous Rx's Medication Instructions Recorded cefdinir 300 mg PO Q12H #19 cap 04/26/20 ketorolac 10 mg PO TID 5 Days #15 tab 04/26/20 Allergies Allergy/AdvReac Type Severity Reaction Status Date / Time No Known Allergies Allergy Mild NOT Verified 04/27/20 11:00 APPLICABLE Review of Systems Review of Systems: Constitutional : No Fever, No Chills ENT/Mouth : No sore throat Eyes: No Eye Pain, No Swelling, No Redness Cardiovascular : No Chest Pain, No SOB Respiratory : No Cough, No Sputum, No Wheezing Gastrointestinal : positive Nausea, no Vomiting, No Diarrhea, n abdominal pain Genitourinary : positive Dysuria, positive urinary frequency, no Hematuria, positive Flank Pain, no hesitancy Musculoskeletal : No joint pain, No Myalgias Skin : No Skin Lesions, No rash Neuro : No Weakness, No Numbness, No Headache Psych : No Anxiety/Panic, No Depression Heme/Lymph: No Bruising, No Lymphadenopathy Endocrine : No Polyuria, No Polydipsia All other systems reviewed and are negative PMFSH Past Medical History Attestation statement: The following information was validated with the patient. Medical History Depression Gestational diabetes Headache in Hx of Family History Family History Father Diabetes mellitus Kidney disease Paternal Grandmother HTN (hypertension) Arthritis Phlebitis Mother HIV (human immunodeficiency virus infection) Social History Social History Alcohol intake: never Smoking Status: Never smoker Gender identity: female Physical Exam Vital Signs: Vital Signs: Last Vital Signs Temp 99.1 F 04/29/20 10:39 Pulse 76 04/29/20 10:39 Resp 17 04/29/20 10:39 BP 136/74 04/29/20 10:39 Pulse Ox 99 04/29/20 10:39 Body Mass Index 25.5 Appearance: Alert. Oriented X3. No acute distress. Eyes: Pupils equal, round and reactive to light. ENT: Pharynx normal. Neck: Normal inspection. Neck supple. CVS: Normal heart rate and rhythm. Pulses normal. Respiratory: No respiratory distress. Breath sounds normal. Abdomen: Soft and non-tender. Back: bilateral mild CVA ttp Skin: Skin warm and dry. Normal skin color. Normal skin turgor. Extremities: No lower extremity edema. No calf ttp Neuro: Oriented X 3. No motor deficit. No sensory deficit. Medical Decision Making MDM Narrative Medical decision making narrative: 39 yo here for 4th dose of IV Ceftriaxone had GNR 2/2 E. Coli now S to cephalosporins has 10 days of cefdinir can take 10 day course after her 4 days of IV antibiotics, overall looks good, no need to come back to ED unless she spikes a fever or feels worse Discharge Plan Discharge Clinical Impression: Pyelonephritis, Bacteremia Patient Disposition: Home, Self-Care Instructions: Kidney Infection (ED), Bacteremia (ED) Additional Instructions: return to ED for any worsening symptoms or concerns TAKE YOUR ANTIBIOTICS Prescriptions: No Action cefdinir 300 mg capsule 300 mg PO Q12H Qty: 19 RF: 0 ketorolac 10 mg tablet 10 mg PO TID 5 Days Qty: 15 RF: 0 PrePlus 27 mg iron- 1 mg tablet PO RF: 0 albuterol sulfate 90 mcg/actuation HFA aerosol inhaler inhalation RF: 0 aspirin [Adult Aspirin Regimen] 81 mg tablet,delayed release (DR/EC) 81 mg PO DAILY RF: 0 ferrous sulfate 325 mg (65 mg iron) tablet 325 mg PO BID RF: 0
[2020-04-29] MEDS: cefTRIAXone sodium 1 GM in 0.9 % Sodium Chloride 50 ML IV (11:09)
[2020-04-29] MEDS: oxyCODONE HCl Immed Release 5 MG TABLET PO (11:33)
== END 2020-04-29 11:48 | disposition home or self-care (01) ==
PROVIDERS: Emergency Provider Emergency Medicine; PCP Internal Medicine
DX: N12 Tubulo-interstitial nephritis, not specified as acute or chronic (principal); R78.81 Bacteremia; Z79.2 Long term (current) use of antibiotics
CPT/HCPCS: 96365; 99284; J0696

== ENCOUNTER → 2020-06-07 09:08 | Outpatient (BNVA) | payer MEDICARE, MEDICAID, SELFPAY | PROVIDERS: Visit Provider Advanced Practice Midwife | DX: Z30.9 Encounter for contraceptive management, unspecified (principal); Z93.2 Ileostomy status; N92.1 Excessive and frequent menstruation with irregular cycle; F43.9 Reaction to severe stress, unspecified; Z39.2 Encounter for routine postpartum follow-up | CPT/HCPCS: 99212 ==

== ENCOUNTER → 2020-06-10 11:31 | Outpatient (BNVA) | payer MEDICARE, MEDICAID, SELFPAY | PROVIDERS: Visit Provider Advanced Practice Midwife | DX: Z30.9 Encounter for contraceptive management, unspecified (principal) | CPT/HCPCS: 81025; 96372; 99212; J1050 ==

== ENCOUNTER → 2020-09-02 11:01 | Outpatient (BNVA) | payer MEDICARE, MEDICAID, SELFPAY | PROVIDERS: Visit Provider Advanced Practice Midwife ==

== ENCOUNTER → 2020-09-03 08:59 | Outpatient (BNVA) | payer MEDICARE, MEDICAID, SELFPAY | PROVIDERS: Visit Provider Advanced Practice Midwife | DX: Z30.9 Encounter for contraceptive management, unspecified (principal) | CPT/HCPCS: 96372; 99211; J1050 ==

== ENCOUNTER → 2020-11-25 11:06 | Outpatient (BNVA) | payer MEDICARE, MEDICAID, SELFPAY | PROVIDERS: PCP Physician Assistant; Visit Provider Advanced Practice Midwife | DX: Z30.9 Encounter for contraceptive management, unspecified (principal) | CPT/HCPCS: 96372; 99211 ==

== ENCOUNTER 2021-03-14 10:06 | Outpatient (REF) | payer MEDICARE, MEDICAID, SELFPAY ==
[2021-03-14 11:56] LABS: Hematocrit 39.5 % (37.0-47.0); Hemoglobin 13.3 g/dl (12.0-16.0); Mean Corpuscular HGB Conc 33.7 g/dl (31.0-35.0); Mean Corpuscular Hemoglobin 30.1 pg (27.0-33.0); Mean Corpuscular Volume 89.4 fL (80.0-98.0); Mean Platelet Volume 10.4 fL (9.4-12.3); Platelet Count 253 X10*3/uL (160-400); Red Blood Count 4.42 X10*6/uL (4.20-5.50); Red Cell Distribution Width 11.9 % (11.0-16.0); White Blood Count 7.8 X10*3/uL (4.8-10.8)
[2021-03-14 12:24] LABS: Alanine Aminotransferase 25 U/L (0-31); Albumin Level 4.1 g/dL (3.5-5.0); Alkaline Phosphatase 89 U/L (39-117); Anion Gap 10 (12-20); Aspartate Amino Transferase 17 U/L (5-31); Bilirubin Total 0.7 mg/dL (0.0-1.0); Blood Urea Nitrogen 9 mg/dL (9-16); Carbon Dioxide 25 mmol/L (22-29); Chloride 108 mmol/L (96-108); Estimated Glomerular Filt Rate > 60; Glucose Fasting 110 mg/dL (60-99); Iron 71 mcg/dL (30-160); Percent Iron Saturation 20 % (15-50); Potassium 3.9 mmol/L (3.3-5.1); Sodium 139 mmol/L (135-145); Total Iron Binding Capacity 355 mcg/dL (228-428); Total Protein 6.8 g/dL (6.5-8.0); Unsaturated Iron Binding 284 ug/dL
[2021-03-14 13:04] LABS: Syphilis Screen Nonreactive (Nonreactive)
[2021-03-15 13:14] LABS: CT PCR NOT DETECTED (Not Detect.); NG PCR NOT DETECTED (Not Detect.)
[2021-03-16 10:50] LABS: BV Int Neg Control Negative (Negative); BV Int Pos Control Positive (Positive)
[2021-03-17 08:31] LABS: HBc Num1 8.71 S/CO (0.00-0.79); HIV AB/AG Nonreactive (Nonreactive); HIV Num 1 0.05 S/CO (0.00-0.99); ~HepC Num1 0.14 S/CO (0.00-0.79); ~Hepatitis C Antibody Nonreactive (Nonreactive)
[2021-03-17 09:29] LABS: HBc Num2 9.12 S/CO; HBc Num3 9.09 S/CO; Hepatitis B Core Antibody Reactive (Nonreactive)
[2021-03-18 10:31] LABS: Hepatitis B Core Antibody IgM NON-REACTIVE (NON-REACTIVE)
== END 2021-03-14 10:07 | disposition home or self-care (01) ==
LOC: HO.LAB 10:06
PROVIDERS: PCP Physician Assistant; Visit Provider Advanced Practice Midwife
DX: N89.8 Other specified noninflammatory disorders of vagina (principal); R35.0 Frequency of micturition; D50.9 Iron deficiency anemia, unspecified; I10 Essential (primary) hypertension; Z20.2 Contact with and (suspected) exposure to infections with a predominantly sexual mode of transmission
CPT/HCPCS: 36415; 80053; 81003; 81025; 83540; 84443; 85027; 86704; 86705; 86780; 86803; 87389; 87480; 87491; 87510; 87591; 87660; 99212

== ENCOUNTER → 2021-03-31 11:45 | Outpatient (BNVA) | payer MEDICARE, MEDICAID, SELFPAY | PROVIDERS: PCP Physician Assistant; Visit Provider Advanced Practice Midwife | DX: Z30.9 Encounter for contraceptive management, unspecified (principal) | CPT/HCPCS: 96372; 99211 ==

== ENCOUNTER 2021-05-03 15:04 | Emergency (ER) | payer MEDICARE, MEDICAID, SELFPAY ==
[2021-05-03 15:29] VITALS: BP 115/70; PULSE 88; RESP 19; TEMP 36.6; O2SAT 99; BMI 27.0
[2021-05-03 16:37] LABS: MANUAL DIFF FLAG NO
[2021-05-03 16:40] LABS: Basophils Absolute Auto 0.1 X10*3/uL (0.0-0.2); Eosinophils Absolute Auto 0.9 X10*3/uL (0.0-0.4); Eosinophils Percent Auto 10.2 % (0-4); Hematocrit 40.4 % (37.0-47.0); Hemoglobin 13.4 g/dl (12.0-16.0); Imm Gran Abs Auto 0.02 X10*3/uL (0.00-0.03); Imm Gran Pct Auto 0.2 % (0.0-0.4); Lymphocytes Absolute Auto 2.6 X10*3/uL (1.2-4.9); Lymphocytes Percent Auto 30.5 % (20-40); Mean Corpuscular HGB Conc 33.2 g/dl (31.0-35.0); Mean Corpuscular Hemoglobin 29.6 pg (27.0-33.0); Mean Corpuscular Volume 89.4 fL (80.0-98.0); Mean Platelet Volume 10.3 fL (9.4-12.3); Monocytes Absolute Auto 0.8 X10*3/uL (0.1-1.2); Monocytes Percent Auto 9.3 % (2-11); Neutrophils Absolute Auto 4.1 x10*3/uL (2.0-8.3); Neutrophils Percent Auto 48.8 % (45-73); Platelet Count 247 X10*3/uL (160-400); Red Blood Count 4.52 X10*6/uL (4.20-5.50); Red Cell Distribution Width 11.9 % (11.0-16.0); White Blood Count 8.4 X10*3/uL (4.8-10.8)
[2021-05-03 16:53] LABS: Anion Gap 12 (12-20); Blood Urea Nitrogen 12 mg/dL (9-16); Calcium 9.8 mg/dL (8.4-10.2); Carbon Dioxide 25 mmol/L (22-29); Chloride 109 mmol/L (96-108); Estimated Glomerular Filt Rate > 60; Glucose Random 90 mg/dL (60-115); Potassium 4.2 mmol/L (3.3-5.1); Sodium 142 mmol/L (135-145); UPreg QC Valid YES; Urine Pregnancy POSITIVE (NEGATIVE)
[2021-05-03 16:55] LABS: Appearance Urine CLEAR; Color Urine YELLOW; Glucose Urine UA NEG (NEG); Leukocyte Esterase Urine NEG (NEG); Nitrite Urine NEG (NEG); PH 7.5 (5.0-8.0); Specific Gravity - Urine 1.015 (1.005-1.025); Urine Blood NEG (NEG); Urine Ketones NEG (NEG); Urine Protein NEG (NEG-TRACE)
[2021-05-03 16:59] LABS: COVID-19 Test Negative (Negative)
== END 2021-05-03 19:00 | disposition left against medical advice (07) ==
PROVIDERS: Emergency Provider Emergency Medicine; PCP Physician Assistant
DX: N93.9 Abnormal uterine and vaginal bleeding, unspecified (principal); Z20.822 Contact with and (suspected) exposure to COVID-19
CPT/HCPCS: 36415; 80048; 81003; 81025; 85025; 87635; 99283

== ENCOUNTER 2021-05-05 11:33 | Outpatient (REF) | payer MEDICARE, MEDICAID, SELFPAY ==
[2021-05-05 12:30] LABS: HCG Quantitative 615 mIU/mL
== END 2021-05-05 11:34 | disposition home or self-care (01) ==
LOC: HO.LAB 11:33
PROVIDERS: PCP Obstetrics & Gynecology; Visit Provider Obstetrics & Gynecology
DX: O20.9 Hemorrhage in early pregnancy, unspecified (principal)
CPT/HCPCS: 36415; 84702

== ENCOUNTER 2021-05-06 13:45 | Outpatient (REF) | payer MEDICARE, MEDICAID, SELFPAY ==
[2021-05-07 12:00] LABS: BV Int Neg Control Negative (Negative); BV Int Pos Control Positive (Positive)
[2021-05-07 12:49] LABS: CT PCR NOT DETECTED (Not Detect.); NG PCR NOT DETECTED (Not Detect.)
== END 2021-05-06 13:46 | disposition home or self-care (01) ==
LOC: HO.LAB 13:45
PROVIDERS: Visit Provider Advanced Practice Midwife
DX: O20.9 Hemorrhage in early pregnancy, unspecified (principal)
CPT/HCPCS: 87480; 87491; 87510; 87591; 87660; 99212

== ENCOUNTER 2021-05-07 11:41 | Outpatient (REF) | payer MEDICARE, MEDICAID, SELFPAY ==
[2021-05-07 13:18] LABS: HCG Quantitative 696 mIU/mL
== END 2021-05-07 11:42 | disposition home or self-care (01) ==
LOC: HO.LAB 11:41
PROVIDERS: PCP Internal Medicine; Visit Provider Obstetrics & Gynecology
DX: O20.9 Hemorrhage in early pregnancy, unspecified (principal)
CPT/HCPCS: 36415; 84702

== ENCOUNTER 2021-05-08 11:32 | Outpatient (REF) | payer MEDICARE, MEDICAID, SELFPAY ==
--- NOTE | ~2021-05-08 | US_ITS ---
EXAMINATION: US OBSTETRICAL ULTRASOUND CLINICAL INFORMATION: Vaginal bleeding early . Age 40. bHCG 696 (3-4 weeks). COMPARISON: None. LMP: Unknown. TECHNIQUE: Ultrasound of the maternal pelvis is performed using transabdominal and transvaginal transducers. Transvaginal imaging is performed due to inadequate visualization transabdominally. M-mode Doppler is also performed. FINDINGS: The uterus is anteverted and smooth in contour. The endometrial thickness is 11 mm. There is trace fluid in the lower uterine segment and endocervical canal. No visible intrauterine gestational sac. MATERNAL ADNEXA: The right maternal ovary measures 5.9 x 3.4 x 4.9 cm. There is probable heterogeneous corpus luteum cyst within the right ovary measuring 5.3 x 3.1 x 3.6 cm. There is normal color flow and arterial and venous waveforms and no ovarian torsion. The left maternal ovary measures 2.1 x 1.3 x 1.4 cm. No left adnexal mass. Trace fluid cul-de-sac. No significant ascites. Preliminary report provided to Dr. Almonte at 1302 hours by secure text. US/US OB pelvic and transvaginal IMPRESSION: 1. Endometrial double wall thickness 11 mm. No visible intrauterine gestational sac. 2. Trace fluid lower uterine segment and endocervix. 3. Probable right corpus luteum cyst measuring 5.3 x 3.1 x 3.6 cm. No right ovarian torsion. Left ovary unremarkable. Trace pelvic fluid. No overt ascites.
[2021-05-08 14:50] LABS: HCG Quantitative 647 mIU/mL
== END 2021-05-08 11:33 | disposition home or self-care (01) ==
LOC: HO.US 11:32
PROVIDERS: PCP Internal Medicine; Visit Provider Obstetrics & Gynecology
DX: O20.9 Hemorrhage in early pregnancy, unspecified (principal); O34.81 Maternal care for other abnormalities of pelvic organs, first trimester; N83.11 Corpus luteum cyst of right ovary; O09.291 Supervision of pregnancy with other poor reproductive or obstetric history, first trimester; O09.511 Supervision of elderly primigravida, first trimester; Z3A.01 Less than 8 weeks gestation of pregnancy
CPT/HCPCS: 36415; 76801; 76817; 84702; 87491; 87591; 99212

== ENCOUNTER 2021-05-08 16:35 | Outpatient (REF) | payer MEDICARE, MEDICAID, SELFPAY ==
[2021-05-09 01:48] LABS: CT PCR NOT DETECTED (Not Detect.); NG PCR NOT DETECTED (Not Detect.)
== END 2021-05-08 16:36 | disposition home or self-care (01) ==
LOC: HO.LAB 16:35
PROVIDERS: Visit Provider Obstetrics & Gynecology
DX: Z13.89 Encounter for screening for other disorder (principal)
CPT/HCPCS: 87491; 87591

== ENCOUNTER 2021-05-11 11:53 | Outpatient (REF) | payer MEDICARE, MEDICAID, SELFPAY ==
[2021-05-11 12:52] LABS: HCG Quantitative 519 mIU/mL
== END 2021-05-11 11:54 | disposition home or self-care (01) ==
LOC: HO.LAB 11:53
PROVIDERS: Visit Provider Obstetrics & Gynecology
DX: Z32.01 Encounter for pregnancy test, result positive (principal); O09.511 Supervision of elderly primigravida, first trimester; Z3A.00 Weeks of gestation of pregnancy not specified
CPT/HCPCS: 36415; 84702

== ENCOUNTER → 2021-05-12 08:22 | Outpatient (BNVA) | payer MEDICARE, MEDICAID, SELFPAY | PROVIDERS: Visit Provider Obstetrics & Gynecology | DX: O03.9 Complete or unspecified spontaneous abortion without complication (principal) | CPT/HCPCS: 99212 ==

== ENCOUNTER 2021-05-15 12:09 | Outpatient (REF) | payer MEDICARE, MEDICAID, SELFPAY ==
[2021-05-15 13:32] LABS: HCG Quantitative 649 mIU/mL
== END 2021-05-15 12:10 | disposition home or self-care (01) ==
LOC: HO.LAB 12:09
PROVIDERS: PCP Internal Medicine; Visit Provider Obstetrics & Gynecology
DX: Z13.89 Encounter for screening for other disorder (principal)
CPT/HCPCS: 36415; 84702; 99212

== ENCOUNTER 2021-05-15 14:51 | Outpatient (REF) | payer MEDICARE, MEDICAID, SELFPAY ==
--- NOTE | ~2021-05-15 | US_ITS ---
EXAMINATION: US OBSTETRICAL ULTRASOUND CLINICAL INFORMATION: Elevated hCG level. COMPARISON: Ultrasound OB 05/08/2021. LMP: Not sure or approximately 4 months ago. TECHNIQUE: Transabdominal and a limited transabdominal ultrasound imaging was performed. FINDINGS: There is a midline anteverted uterus without any gestational sac or pole. The uterus measures 9.1 x 4.9 x 6.1 cm. The endometrial thickness in the fundus measures 0.9 cm. The myometrium is homogeneous. The left ovary is not seen. There is a complex heterogeneous right ovary. Within the center of the right ovary there is hypoechoic area within echogenic wall. Whether this represents a complex cyst, intrauterine gestational sac is questioned. Normal vascularity was seen in the right ovary. There is no free fluid in the pelvis. No other adnexal mass seen. US/US OB pelvic and transvaginal IMPRESSION: Complex heterogeneous right ovary with a central hypoechoic area with an hyperechoic wall. Question complex cyst or an intrauterine ectopic. No pole was seen however. The right ovary was complex and minimally heterogenous on the previous study. A corpus luteal cyst was seen on the last ultrasound exam 04/28/2021, not seen on the present exam. The left ovary and uterus appears unremarkable. There is no free fluid in the pelvis. Results were discussed with referring physician Dr. Almonte at 4:45 PM.
== END 2021-05-15 14:52 | disposition home or self-care (01) ==
LOC: HO.US 14:51
PROVIDERS: PCP Internal Medicine; Visit Provider Obstetrics & Gynecology
DX: O09.529 Supervision of elderly multigravida, unspecified trimester (principal); O26.899 Other specified pregnancy related conditions, unspecified trimester; R79.89 Other specified abnormal findings of blood chemistry
CPT/HCPCS: 36415; 76801; 76817; 84702; 99212

== ENCOUNTER 2021-05-16 09:07 | Outpatient (REF) | payer MEDICARE, MEDICAID, SELFPAY ==
[2021-05-16 10:01] LABS: Hematocrit 40.1 % (37.0-47.0); Hemoglobin 13.5 g/dl (12.0-16.0); Mean Corpuscular HGB Conc 33.7 g/dl (31.0-35.0); Mean Corpuscular Hemoglobin 29.3 pg (27.0-33.0); Mean Corpuscular Volume 87.2 fL (80.0-98.0); Mean Platelet Volume 10.2 fL (9.4-12.3); Platelet Count 252 X10*3/uL (160-400); Red Cell Distribution Width 11.8 % (11.0-16.0); White Blood Count 4.2 X10*3/uL (4.8-10.8)
[2021-05-16 10:18] LABS: Alanine Aminotransferase 30 U/L (0-31); Aspartate Amino Transferase 15 U/L (5-31); Estimated Glomerular Filt Rate > 60
[2021-05-16 10:24] LABS: HCG Quantitative 592 mIU/mL
== END 2021-05-16 09:08 | disposition home or self-care (01) ==
LOC: HO.US 09:07
PROVIDERS: PCP Internal Medicine; Visit Provider Obstetrics & Gynecology
DX: Z34.90 Encounter for supervision of normal pregnancy, unspecified, unspecified trimester (principal)
CPT/HCPCS: 36415; 82565; 84450; 84460; 84702; 85027; 99212

== ENCOUNTER 2021-05-19 09:07 | Emergency (ER) | payer MEDICARE, MEDICAID, SELFPAY ==
--- NOTE | ~2021-05-19 | US_ITS ---
EXAMINATION: US OBSTETRICAL ULTRASOUND CLINICAL INFORMATION: Lower abdominal pain. Question ectopic right ovary COMPARISON: Ultrasound pelvis 05/15/2021. TECHNIQUE: Transabdominal and transvaginal imaging of pelvis is performed. FINDINGS: Again visualized is enlarged right ovary measuring 7.1 x 6.1 x 4.8 cm and volume 408.85 mL. There is a complex cystic and solid lesion within the right ovary similar to previous study no definite pole, yolk sac or heart beat seen at this time. The uterus is anteverted measuring 8.1 cm in length, 5.1 cm in AP and 5.2 cm in transverse dimension. No intrauterine gestational sac seen. The left ovary is not seen. There is no free fluid in the cul-de-sac. US/US OB pelvic and transvaginal IMPRESSION: Unremarkable uterus. Significantly enlarged right ovary with complex cystic and solid areas seen within the right ovary. No definite yolk sac, pole or heartbeat seen. The findings are similar previous study from 05/15/2021. Left ovary is not seen.
[2021-05-19 09:13] VITALS: BP 132/60; PULSE 88; RESP 19; TEMP 36.6; O2SAT 100; BMI 26.4
== END 2021-05-19 18:53 | disposition left against medical advice (07) ==
PROVIDERS: Emergency Provider Emergency Medicine; PCP Internal Medicine
DX: O00.90 Unspecified ectopic pregnancy without intrauterine pregnancy (principal)
CPT/HCPCS: 36415; 76801; 76817; 84702; 85027; 99212; 99282; 99284

== ENCOUNTER 2021-05-19 14:35 | Outpatient (REF) | payer MEDICARE, MEDICAID, SELFPAY ==
[2021-05-19 15:17] LABS: Hematocrit 43.2 % (37.0-47.0); Hemoglobin 14.4 g/dl (12.0-16.0); Mean Corpuscular HGB Conc 33.3 g/dl (31.0-35.0); Mean Corpuscular Hemoglobin 29.4 pg (27.0-33.0); Mean Corpuscular Volume 88.3 fL (80.0-98.0); Mean Platelet Volume 10.7 fL (9.4-12.3); Platelet Count 235 X10*3/uL (160-400); Red Blood Count 4.89 X10*6/uL (4.20-5.50); Red Cell Distribution Width 11.6 % (11.0-16.0); White Blood Count 4.9 X10*3/uL (4.8-10.8)
[2021-05-19 15:45] LABS: HCG Quantitative 490 mIU/mL
== END 2021-05-19 14:36 | disposition home or self-care (01) ==
LOC: HO.LAB 14:35
PROVIDERS: PCP Internal Medicine; Visit Provider Obstetrics & Gynecology
DX: Z13.89 Encounter for screening for other disorder (principal)
CPT/HCPCS: 36415; 84702; 85027

== ENCOUNTER 2021-05-22 11:09 | Outpatient (REF) | payer MEDICARE, MEDICAID, SELFPAY ==
[2021-05-22 12:33] LABS: HCG Quantitative 329 mIU/mL
== END 2021-05-22 11:10 | disposition home or self-care (01) ==
LOC: HO.LAB 11:09
PROVIDERS: PCP Internal Medicine; Visit Provider Obstetrics & Gynecology
DX: O00.90 Unspecified ectopic pregnancy without intrauterine pregnancy (principal)
CPT/HCPCS: 36415; 84702; 99212

== ENCOUNTER 2021-05-26 13:06 | Outpatient (REF) | payer MEDICARE, MEDICAID, SELFPAY ==
[2021-05-26 13:24] LABS: Hematocrit 29.4 % (37.0-47.0); Mean Corpuscular Hemoglobin 29.2 pg (27.0-33.0); Mean Platelet Volume 9.6 fL (9.4-12.3); Platelet Count 239 X10*3/uL (160-400); Red Blood Count 3.42 X10*6/uL (4.20-5.50); Red Cell Distribution Width 11.8 % (11.0-16.0); White Blood Count 6.5 X10*3/uL (4.8-10.8)
[2021-05-26 14:03] LABS: HCG Quantitative 141 mIU/mL
== END 2021-05-26 13:07 | disposition home or self-care (01) ==
LOC: HO.LAB 13:06
PROVIDERS: Visit Provider Obstetrics & Gynecology
DX: O00.90 Unspecified ectopic pregnancy without intrauterine pregnancy (principal)
CPT/HCPCS: 36415; 84702; 85027; 99212

== ENCOUNTER 2021-06-03 15:35 | Outpatient (REF) | payer MEDICARE, MEDICAID, SELFPAY ==
[2021-06-03 16:54] LABS: HCG Quantitative 36 mIU/mL
== END 2021-06-03 15:36 | disposition home or self-care (01) ==
LOC: HO.LAB 15:35
PROVIDERS: PCP Internal Medicine; Visit Provider Obstetrics & Gynecology
DX: O00.90 Unspecified ectopic pregnancy without intrauterine pregnancy (principal)
CPT/HCPCS: 36415; 84702

== ENCOUNTER → 2021-06-04 14:08 | Outpatient (BNVA) | payer MEDICARE, MEDICAID, SELFPAY | PROVIDERS: PCP Internal Medicine; Visit Provider Obstetrics & Gynecology | DX: O00.90 Unspecified ectopic pregnancy without intrauterine pregnancy (principal) | CPT/HCPCS: Q3014 ==

== ENCOUNTER 2021-06-24 14:23 | Outpatient (REF) | payer MEDICARE, MEDICAID, SELFPAY ==
[2021-06-24 15:57] LABS: HCG Quantitative 10 mIU/mL
== END 2021-06-24 14:24 | disposition home or self-care (01) ==
LOC: HO.LAB 14:23
PROVIDERS: PCP Internal Medicine; Visit Provider Obstetrics & Gynecology
DX: O00.90 Unspecified ectopic pregnancy without intrauterine pregnancy (principal); N83.299 Other ovarian cyst, unspecified side
CPT/HCPCS: 36415; 84702; Q3014

== ENCOUNTER 2021-07-16 14:25 | Outpatient (REF) | payer MEDICARE, MEDICAID, SELFPAY ==
[2021-07-16 15:35] LABS: HCG Quantitative < 2 mIU/mL
== END 2021-07-16 14:26 | disposition home or self-care (01) ==
LOC: HO.LAB 14:25
PROVIDERS: PCP Internal Medicine; Visit Provider Obstetrics & Gynecology
DX: O00.90 Unspecified ectopic pregnancy without intrauterine pregnancy (principal)
CPT/HCPCS: 36415; 84702

== ENCOUNTER → 2021-07-17 14:58 | Outpatient (BNVA) | payer MEDICARE, MEDICAID, SELFPAY | PROVIDERS: PCP Internal Medicine; Visit Provider Obstetrics & Gynecology | DX: O00.90 Unspecified ectopic pregnancy without intrauterine pregnancy (principal); N83.299 Other ovarian cyst, unspecified side | CPT/HCPCS: Q3014 ==

== ENCOUNTER 2021-07-30 19:13 | Emergency (ER) | payer MEDICARE, MEDICAID, SELFPAY ==
--- NOTE | ~2021-07-30 | XR_ITS ---
EXAMINATION: XR ANKLE, RIGHT CLINICAL INFORMATION: Fall COMPARISON: None TECHNIQUE: AP, lateral, and mortise views of the right ankle. FINDINGS: Soft tissue swelling. Small bony lucency involving the talus at the level the medial malleolus. Small avulsion would need to be considered. Mortise is intact. XR/XR ankle RT min 3V IMPRESSION: Small lucency involving the medial malleolus. An avulsion injury would need to be considered given the appearance. Otherwise significant soft tissue swelling.
[2021-07-30 20:09] VITALS: BP 150/81; PULSE 76; RESP 17; TEMP 37.2; O2SAT 98; BMI 28.1
[2021-07-30] MEDS: Acetaminophen 325 MG TABLET 650 MG PO (20:18)
[2021-07-30] MEDS: Ibuprofen 600 MG TABLET PO (20:19)
--- NOTE | 2021-07-30 22:18 | ED_ITS ---
HPI - Extremity Injury (Lower) General Chief Complaint: Extremity Injury, Lower Stated Complaint: right ankle sprain Time Seen by Provider: 07/30/21 22:18 Source: patient Mode of arrival: ambulatory History of Present Illness HPI Narrative: 40-year-old female with past medical history of depression, diabetes, presenting to the ED complaining right ankle pain/swelling and inability to bear weight s/p twist and fall from sidewalk at 2AM last night. Reports tripped and fell, denies symptoms prior to fall, denies head trauma or LOC. Denies numbness, tingling, weakness MD complaint: ankle injury Onset (ago): day(s) Related Data Previous Rx's Medication Instructions Recorded miscellaneous medical supply #1 ea 09/25/20 (Blood Pressure Cuff) metronidazole 500 mg tablet 500 mg PO BID 7 Days #14 tab 03/20/21 albuterol sulfate 90 mcg/actuation 1 puff PO Q6-8H #18 g 04/21/21 aerosol inhaler (Ventolin HFA) ferrous sulfate 325 mg (65 mg 325 mg PO BID #60 tab 04/21/21 iron) tablet (FeroSul) vitamin with calcium 1 tab PO DAILY #30 tab 05/06/21 no.72-iron 27 mg-folic acid 1 mg tablet ( Vitamins Plus Low Iron) metronidazole 500 mg tablet 500 mg PO BID 7 Days #14 tab 05/14/21 ondansetron HCl 4 mg tablet 4 mg PO Q8H #7 tab 05/16/21 medroxyprogesterone 10 mg tablet 10 mg PO DAILY 10 Days #10 tab 05/26/21 (Provera) acetaminophen 500 mg tablet 500 mg PO Q6H PRN #20 tab 07/30/21 (Tylenol Extra Strength) ibuprofen 800 mg tablet 800 mg PO Q8H PRN #14 tab 07/30/21 Allergies Allergy/AdvReac Type Severity Reaction Status Date / Time No Known Allergies Allergy Mild NOT Verified 06/24/21 16:05 APPLICABLE Review of Systems Review of Systems: Constitutional: No Fever, No Chills ENT/Mouth: No Ear Pain, No Nasal Congestion, No sore throat Cardiovascular: No Chest Pain, No SOB Respiratory: No Cough Gastrointestinal: No Nausea, No Vomiting, No Diarrhea, No Abdominal pain Genitourinary: No Dysuria, No Urinary Frequency, No Flank Pain Musculoskeletal: + joint pain, No Myalgias, + Joint Swelling Skin: No Skin Lesions, No rash Neuro: No Weakness, No Numbness, No Paresthesias Yes all other systems are reviewed and are negative Neurologic: Denies Sensory deficit (Neuro) [facility] Past Medical History Attestation statement: The following information was validated with the patient. Medical History Depression Gestational diabetes Hx of Surgical History No history of previous surgery Family History Family History Father Diabetes mellitus Kidney disease Paternal Grandmother HTN (hypertension) Arthritis Phlebitis Mother HIV (human immunodeficiency virus infection) Social History Social History Alcohol intake: never Advance Directives: No Advance Directives Information Provided: No Current occupational status: unemployed Gender identity: Female Physical Exam Vital Signs: Vital Signs: Last Vital Signs Temp 98.9 F 07/30/21 20:09 Pulse 76 07/30/21 20:09 Resp 17 07/30/21 20:09 BP 150/81 H 07/30/21 20:09 Pulse Ox 98 07/30/21 20:09 BMI result Body Mass Index 28.1 Const: General: cooperative, healthy appearing, no acute distress, alert and awake Orientation/consciousness: patient oriented x3 Limitations: no limitations HEENT: Head: Yes normal to inspection and Yes atraumatic Ears: hearing grossly normal bilaterally General nose exam: Normal external nose present Face and sinus: Yes normal facial exam Eyes: General: appearance normal, both eyes and all related structures EOM: EOMs intact bilaterally Neck: Neck: Yes normal visual inspection and Yes no meningeal signs Resp: Effort & Inspection: normal respiratory effort and no respiratory distress Cardio: Rate: regular rate Heart sounds: S1 normal heart sound present and S2 normal heart sound present Peripheral pulses: radial pulses present Skin: Rashes: no rashes Wounds: no wounds Neuro: General: patient oriented x3 and no meningeal signs Gait exam (Neuro): Normal gait present Sensory Exam: No Sensory deficit (Neuro) Extrem: Other: Right ankle with noted swelling, diffusely tender > medial malleolus. Limited dorsiflexion and plantar flexion from pain/swelling. Distal pulses intact. Sensation intact to light touch. Right knee/tib/fib and foot nontender Course Course Course Narrative: XR ankle RT min 3V IMPRESSION: Small lucency involving the medial malleolus. An avulsion injury would need to be considered given the appearance. Otherwise significant soft tissue swelling. >> patient placed in a posterior short-leg with stirrup and supplied with crutches, to be nonweightbearing and follow up with Orthopedics MDM - Extremity Injury (Lower) MDM Narrative Medical decision making narrative: 40-year-old female with past medical history of depression, diabetes, presenting to the ED complaining right ankle pain/swelling and inability to bear weight s/p twist and fall from sidewalk at 2AM last night. On exam vital signs stable, NAD/nontoxic, physical exam as above. Concern for ankle fracture worse brain Plan: X-rays Differential Diagnosis Differential diagnosis: Likely ankle sprain and strain and ankle fracture Medical Records Attestation: I reviewed the patient's medical records. Lab Data Attestation: I reviewed the patient's lab results. Discharge Plan Discharge Clinical Impression: Medial malleolar fracture Patient Disposition: Home, Self-Care Instructions: Ankle Fracture (DC), Crutch Instructions (ED) Additional Instructions: Your x-ray shows likely a fracture of your medial malleolus Keep splint on, dry, and clean. DO NOT BEAR ANY WEIGHT ON YOUR RIGHT LEG. USE CRUTCHES YOU NEED TO FOLLOW-UP WITH AN REGISTERED DENTAL ASSISTANT RDA If pain becomes unbearable, you have numbness or tingling, you cannot feel your toes, toes become increasingly swollen removed Connor wrap from return to the ED immediately Prescriptions: New ibuprofen 800 mg tablet 800 mg PO Q8H PRN (Reason: pain) Qty: 14 0RF acetaminophen [Tylenol Extra Strength] 500 mg tablet 500 mg PO Q6H PRN (Reason: pain or fever) Qty: 20 0RF No Action metronidazole 500 mg tablet 500 mg PO BID 7 Days Qty: 14 0RF Rx Instructions: Take with food, Avoid alcohol and vinegar products albuterol sulfate [Ventolin HFA] 90 mcg/actuation HFA aerosol inhaler 1 puff PO Q6-8H Qty: 18 3RF ferrous sulfate [FeroSul] 325 mg (65 mg iron) tablet 325 mg PO BID Qty: 60 3RF metronidazole 500 mg tablet 500 mg PO BID 7 Days Qty: 14 0RF Rx Instructions: Take with food, Avoid alcohol and vinegar products medroxyprogesterone [Provera] 10 mg tablet 10 mg PO DAILY 10 Days Qty: 10 0RF (DME) Blood Pressure Cuff Misc See Rx Instructions .ROUTE .MEDSUPPLY Qty: 1 0RF Rx Instructions: As directed medroxyprogesterone [Depo-Provera] 150 mg/mL syringe 150 mg IM ONCE Qty: 1 0RF Vitamin Plus Low Iron 27 mg iron- 1 mg tablet 1 tab PO DAILY Qty: 30 11RF ondansetron HCl 4 mg tablet 4 mg PO Q8H Qty: 7 0RF Referrals: Regulo Hunter PA-C [Physician Transportation Inspector] - 1 week Stand Alone Forms: Work/School Release
--- NOTE | 2021-07-30 22:42 | PC.NURSE ---
POSTERIOR SHORT AND STIRUP PLACED TO RIGHT LOWER LEG. CHECKED BY KIRBY GOTTI.
== END 2021-07-30 22:46 | disposition home or self-care (01) ==
PROVIDERS: Emergency Provider Internal Medicine; PCP Internal Medicine
DX: S82.51XA Displaced fracture of medial malleolus of right tibia, initial encounter for closed fracture (principal); X50.1XXA Overexertion from prolonged static or awkward postures, initial encounter; Y93.9 Activity, unspecified; Y92.480 Sidewalk as the place of occurrence of the external cause; Y99.9 Unspecified external cause status; Z79.899 Other long term (current) drug therapy
CPT/HCPCS: 29505; 73610; 99284

== ENCOUNTER 2021-08-04 11:42 | Outpatient (REF) | payer MEDICARE, MEDICAID, SELFPAY ==
--- NOTE | ~2021-08-04 | US_ITS ---
EXAMINATION: US PELVIS CLINICAL INFORMATION: Ovarian cyst COMPARISON: Previous CT of the abdomen and pelvis April 2020 and pelvic ultrasound November 2016 TECHNIQUE: Ultrasound of the pelvis is performed using both transabdominal and transvaginal transducers along with Doppler. Transvaginal imaging is performed due to inadequate visualization transabdominally. FINDINGS: The uterus is anteverted and measures 11.3 x 4.4 x 6.5 cm in dimension. No focal uterine lesion is seen. Endometrial thickness is normal measuring 1.1 cm. There are nabothian cysts in the cervix. The ovaries are normal. The right ovary measures 3.4 x 2.2 x 2.2 cm. The left ovary measures 4.1 x 2.5 x 3.2 cm. There is no fluid in the pelvis. US/US pelvic and transvaginal IMPRESSION: Unremarkable exam.
== END 2021-08-04 11:43 | disposition home or self-care (01) ==
LOC: HO.US 11:42
PROVIDERS: Visit Provider Obstetrics & Gynecology
DX: S82.51XA Displaced fracture of medial malleolus of right tibia, initial encounter for closed fracture (principal); N83.299 Other ovarian cyst, unspecified side; X58.XXXA Exposure to other specified factors, initial encounter; Y93.9 Activity, unspecified; Y92.9 Unspecified place or not applicable; Y99.9 Unspecified external cause status
CPT/HCPCS: 76830; 76856; 99202

== ENCOUNTER → 2021-08-11 11:56 | Outpatient (BNVA) | payer MEDICARE, MEDICAID, SELFPAY | PROVIDERS: Visit Provider Obstetrics & Gynecology | DX: N83.291 Other ovarian cyst, right side (principal) | CPT/HCPCS: Q3014 ==

== ENCOUNTER → 2021-08-14 10:35 | Outpatient (BNVA) | payer MEDICARE, MEDICAID, SELFPAY | PROVIDERS: Visit Provider Physician Assistant | DX: S82.51XA Displaced fracture of medial malleolus of right tibia, initial encounter for closed fracture (principal); X58.XXXA Exposure to other specified factors, initial encounter; Y93.9 Activity, unspecified; Y92.9 Unspecified place or not applicable; Y99.8 Other external cause status | CPT/HCPCS: 99212 ==

== ENCOUNTER → 2021-09-01 10:41 | Outpatient (BNVA) | payer MEDICARE, MEDICAID, SELFPAY | PROVIDERS: Visit Provider Physician Assistant | DX: S82.51XD Displaced fracture of medial malleolus of right tibia, subsequent encounter for closed fracture with routine healing (principal) | CPT/HCPCS: 99212 ==

== ENCOUNTER 2021-09-22 11:21 | Outpatient (RCR) | payer MEDICARE, MEDICAID, SELFPAY ==
--- NOTE | 2021-09-22 12:17 | MHC.PT.EP ---
[facility] [place] Office [place] Office [place] Office [address] Jhony Olguin [address] [phone] F: [phone] F: [phone] F: [phone] F: [phone] Physical Therapy Plan of Care Date of Evaluation: Date of Surgery: NA Diagnosis: R ANKLE FRACTURE Assessment: Pt IS 41 YO F REFERRED TO PT FROM [facility] ([facility]) S/P R MEDIAL MALLEOLUS FX THAT OCCURED ON 07/29/21 WHILE Pt WAS WALKING (TWISTED) ANKLE. SEEN IN ER NEXT DAY (XRA + FX, CRUTCHES AND NWB) FU WITH ORTHO, GIVEN VIC BOOT, REFERRED TO PT AT 1 MONTH VISIT. PRESENTS WITH PAIN AND SWELLING (MIN) R ANKLE, DECREASED ANKLE ROM AND STRENGTH. SHOULD BENEFIT FROM PT TO ADDRESS THESE ISSUES Frequency and Duration: The patient will be seen 2X/WK X 6 WKS Short Term Goals: 1. INCREASED AWARENESS ANKLE CARE 2. I HEP WITH DC EX PLAN 3. Pt TO REPORT LESS ANKLE SWELLING OVERALL Shelter Goals: 1. IMPROVED LEFI 2. DECREASED R ANKLE PAIN AT LEAST 50% WITH ADLS 3. INCREASED R ANKLE ROM 5-10 DEGREES T/O 4. SLS R >10 SEC Treatment Plan: Modalities to reduce pain, spasms and effusion. Manual therapy to restore motion and function. Therapeutic exercise to improve strength and flexibility. Neuromuscular re-education for posture and balance. Therapeutic activities to return to functional activities of daily living. Electronically signed by: CECILIA SOTO PT Please sign and return to therapist. Thank you for your referral.
--- NOTE | 2021-10-20 13:53 | MHC.PT.DC ---
[facility] [place] Office [place] Office [place] Office [address] Jhony Olguin [address] [phone] F: [phone] F: [phone] F: [phone] F: [phone] Physical Therapy Discharge Report Diagnosis: R ANKLE FRACTURE Date of Surgery: NA Date of Evaluation: 09/22/21 Date of Discharge: 10/20/21 Treatments to Date: 1 Cancellations to Date: 3 No Shows to Date: 1 Discharge Status: Patient Elected to Stop Recommend MD Follow-up Discharge Summary: Pt SEEN FOR INIT EVAL. SHE THEN CANCELLED NEXT APPT THEN NO SHOWED THE FOLLOWING 3 APPTS. AT INIT EVAL PER ASSESSMENT 'Pt IS 41 YO F REFERRED TO PT FROM [facility] ([facility]) S/P R MEDIAL MALLEOLUS FX THAT OCCURED ON 07/29/21 WHILE Pt WAS WALKING (TWISTED) ANKLE. SEEN IN ER NEXT DAY (XRAY + FX, CRUTCHES AND NWB) FU WITH ORTHO, GIVEN WALKING BOOT, REFERRED TO PT AT 1 MONTH VISIT. PRESENTS WITH PAIN AND SWELLING (MIN) R ANKLE, DECREASED ANKLE ROM AND STRENGTH. SHOULD BENEFIT FROM PT TO ADDRESS THESE ISSUES' Electronically signed by: CECILIA SOTO PT Please sign and return to therapist. Thank you for your referral.
== END 2021-10-20 13:55 | disposition home or self-care (01) ==
LOC: HO.PT 11:21
PROVIDERS: PCP Internal Medicine; Visit Provider Physician Assistant
DX: S82.51XA Displaced fracture of medial malleolus of right tibia, initial encounter for closed fracture (principal)
CPT/HCPCS: 97110; 97161

== ENCOUNTER 2022-09-17 08:46 | Emergency (ER) | payer MEDICARE, MEDICAID, SELFPAY ==
--- NOTE | ~2022-09-17 | US_ITS ---
EXAMINATION: US PELVIS CLINICAL INFORMATION: Acute pelvic pain. LMP end of August, unsure of exact dates. COMPARISON: Pelvic ultrasound 08/04/2021. TECHNIQUE: Ultrasound of the pelvis is performed using both transabdominal and transvaginal transducers along with Doppler. Transvaginal imaging is performed due to inadequate visualization transabdominally. FINDINGS: The uterus is anteverted and measures 9.3 x 4.8 x 6.8 cm. No uterine lesion. The endometrium measures 1 cm in thickness without discrete focal abnormality. Nabothian cysts are noted in the cervix. The ovaries are normal in morphology and symmetric in size. The right ovary measures 3.9 x 1.9 x 1.8 cm (7 mL). The left ovary measures 2.6 x 2.3 x 2 cm (6 mL). There is preserved flow on color Doppler in both ovaries and on a spectral Doppler in the right ovary. No definite spectral Doppler flow noted to the left ovary, likely related with positioning of and limitations of technique, as otherwise the left ovary is normal in morphology with symmetric size. No free fluid. US/US pelvic and transvaginal IMPRESSION: No acute sonographic abnormalities to explain the patient's symptoms. As above, the spectral Doppler to the left ovary was not confirmed in this examination, possibly due to limitations of technique. If an acute ovarian pathology is suspected, consider a short-term follow-up ultrasound for reevaluation.
[2022-09-17 08:51] VITALS: BP 137/85; PULSE 65; RESP 117; TEMP 36.4; O2SAT 98; BMI 27.1
--- NOTE | 2022-09-17 09:17 | ED.ABDPAIN ---
HPI - Abdominal Pain General Chief Complaint: Abdominal Pain Stated Complaint: abd pain Time Seen by Provider: 09/17/22 09:01 Source: patient Mode of arrival: ambulatory Limitations: no limitations History of Present Illness HPI narrative: 42-year-old female presents with lower abdominal pain. The pain is moderate to severe. The pain is intermittent. This in suprapubic area. Sometimes it radiates to bilateral sides. She does describe some mild back pain. She has some nausea but no vomiting. She denies any diarrhea or constipation. She does have urinary frequency but no dysuria or hematuria she reports that this is not feel like a typical urinary tract infection. She denies any vaginal bleeding or discharge. There is no clear relieving or exacerbating features. Pain is described as sharp and burning in nature Related Data Previous Rx's Medication Instructions Recorded miscellaneous medical supply #1 ea 09/25/20 (Blood Pressure Cuff) albuterol sulfate 90 mcg/actuation 1 puff PO Q6-8H #18 grams 04/21/21 aerosol inhaler (Ventolin HFA) ferrous sulfate 325 mg (65 mg 325 mg PO BID #60 tabs 04/21/21 iron) tablet (FeroSul) vitamin with calcium 1 tab PO DAILY #30 tabs 05/06/21 no.72-iron 27 mg-folic acid 1 mg tablet ( Vitamins Plus Low Iron) metronidazole 500 mg tablet 500 mg PO BID 7 days #14 tabs 05/14/21 ondansetron HCl 4 mg tablet 4 mg PO Q8H #7 tabs 05/16/21 acetaminophen 500 mg tablet 500 mg PO Q6H PRN pain or fever 07/30/21 (Tylenol Extra Strength) #20 tabs ibuprofen 800 mg tablet 800 mg PO Q8H PRN pain #14 tabs 07/30/21 nirmatrelvir 300 mg (150 mg See Rx Instructions PO .COMPLEX 01/27/22 x2)-ritonavir 100 mg tablet,dose #30 ea pack(EUA) (Paxlovid) dicyclomine 20 mg tablet 20 mg PO QID PRN abdominal 09/17/22 discomfort #30 tabs Allergies Allergy/AdvReac Type Severity Reaction Status Date / Time No Known Allergies Allergy Mild NOT Verified 09/01/21 10:54 APPLICABLE [facility] Past Medical History Medical History Depression Gestational diabetes Hx of Surgical History No history of previous surgery Family History Family History Father Diabetes mellitus Kidney disease Paternal Grandmother HTN (hypertension) Arthritis Phlebitis Mother HIV (human immunodeficiency virus infection) Social History Social History Alcohol intake: never Use of substances other than those prescribed or required for medical reasons: No Advance Directives: No Advance Directives Information Provided: Yes Patient : No Current occupational status: unemployed Gender identity: Female Physical Exam ED Vital Signs: Vital Signs - 24 hr 09/17/22 08:51 09/17/22 09:50 Temperature 97.6 F Pulse Rate 65 66 Respiratory Rate 117 H Blood Pressure 137/85 151/84 H Pulse Oximetry 98 98 Oxygen Delivery Method Room Air Room Air BMI result Body Mass Index 27.1 GEN: Well developed, no acute distress, alert, oriented HEENT: Normocephalic, atraumatic, normal external ears, nose appears normal, no oropharyngeal edema or exudates Eyes: Normal to appearance Neck: Supple, no lymphadenopathy Respiratory: Talks in complete sentences, no respiratory distress, clear to auscultation bilaterally Cardiovascular: Regular rate and rhythm, no murmurs rubs or gallops Abdomen: Soft, suprapubic tenderness, no rebound or guarding, no right or left lower quadrant abdominal tenderness, nondistended, no guarding, no rebound Back: No CVA tenderness Extremities: No clubbing cyanosis or edema Neurologic: No focal neurologic deficits, cranial nerves 2-12 intact, strength is 5/5 bilaterally Skin: No rash Course Course Course Narrative: 42-year-old female presents with suprapubic pain and urinary frequency. Suspect urinary tract infection. Patient denies being . Will send urinalysis and urine test off at this time. If this is negative, would recommend an ultrasound and some additional blood work. Reevaluation(s) Reevaluation #1: Patient reports this pain is been going on and off for approximately a year. At this point her workup is unremarkable. There is no evidence of UTI. There is no significant pelvic pathology identified. She has no McBurney's point tenderness, negative Cr sign. Doubt acute appendicitis or cholecystitis. There are no red flag findings on history or physical exam or laboratory analysis to warrant further testing at this time. I will refer the patient to her OBGYN and to gastroenterology. Time: 13:11 Medical Decision Making Medical Decision Making [facility] Narrative: 42-year-old female presents with suprapubic pain. Examination revealed tenderness in that location. Rest of her exam is benign. There is no rebound or guarding. There is no CVA tenderness. She does describe some mild low back pain. Differential diagnosis could include urinary tract infection, pyelonephritis, abdominal pain, colitis, diverticulitis, gastroenteritis, dysmotility disorder Differential Diagnosis Pelvic pain Lab Data [facility] Lab Attestation statement: I reviewed the patient's lab results. 09/17/22 09:25 09/17/22 09:25 Labs: Lab Results 09/17/22 09/17/22 09/17/22 Range/Units 09:22 09:22 09:25 WBC 9.6 (4.8-10.8) X10*3/uL RBC 4.85 D (4.20-5.50) X10*6/uL Hgb 14.2 D (12.0-16.0) g/dl Hct 41.7 D (37.0-47.0) % MCV 86.0 (80.0-98.0) fL MCH 29.3 (27.0-33.0) pg MCHC 34.1 (31.0-35.0) g/dl RDW 12.3 (11.0-16.0) % Plt Count 258 (160-400) X10*3/uL MPV 9.6 (9.4-12.3) fL Immature Gran % (Auto) 0.3 (0.0-0.4) % Neut % (Auto) 58.7 (45-73) % Lymph % (Auto) 26.2 (20-40) % [place] % (Auto) 8.7 (2-11) % Eos % (Auto) 5.3 H (0-4) % Baso % (Auto) 0.8 (0-2) % Lymph # (Auto) 2.5 (1.2-4.9) X10*3/uL [place] # (Auto) 0.8 (0.1-1.2) X10*3/uL Eos # (Auto) 0.5 H (0.0-0.4) X10*3/uL Baso # (Auto) 0.1 (0.0-0.2) X10*3/uL Abs Immat Gran (auto) 0.03 (0.00-0.03) X10*3/uL Absolute Neuts (auto) 5.6 (2.0-8.3) x10*3/uL Absolute Nucleated RBC 0.000 (0.0-0.012) X10*3/uL Nucleated RBC % (auto) 0.0 (0.0-0.2) /100WBC Sodium (135-145) mmol/L Potassium (3.3-5.1) mmol/L Chloride (96-108) mmol/L Carbon Dioxide (22-29) mmol/L Anion Gap (12-20) BUN (9-16) mg/dL Creatinine (0.5-1.4) mg/dL Estim Creat Clear Calc Estimated GFR Random Glucose (60-115) mg/dL Calcium (8.4-10.2) mg/dL Beta HCG, Quant mIU/mL Urine Color Yellow Urine Appearance Clear Urine pH 7.5 (5.0-9.0) Ur Specific [place] 1.020 (1.005-1.025) Urine Protein Negative (Neg-Trace) mg/dL Urine Glucose (UA) Negative (Negative) mg/dL Urine Ketones Trace (Negative) mg/dL Urine Blood Negative (Negative) Urine Nitrite Negative (Negative) Ur Leukocyte Esterase Negative (Negative) Urine Test NEGATIVE (NEGATIVE) 09/17/22 09/17/22 Range/Units 09:25 09:25 WBC (4.8-10.8) X10*3/uL RBC (4.20-5.50) X10*6/uL Hgb (12.0-16.0) g/dl Hct (37.0-47.0) % MCV (80.0-98.0) fL MCH (27.0-33.0) pg MCHC (31.0-35.0) g/dl RDW (11.0-16.0) % Plt Count (160-400) X10*3/uL MPV (9.4-12.3) fL Immature Gran % (Auto) (0.0-0.4) % Neut % (Auto) (45-73) % Lymph % (Auto) (20-40) % [place] % (Auto) (2-11) % Eos % (Auto) (0-4) % Baso % (Auto) (0-2) % Lymph # (Auto) (1.2-4.9) X10*3/uL [place] # (Auto) (0.1-1.2) X10*3/uL Eos # (Auto) (0.0-0.4) X10*3/uL Baso # (Auto) (0.0-0.2) X10*3/uL Abs Immat Gran (auto) (0.00-0.03) X10*3/uL Absolute Neuts (auto) (2.0-8.3) x10*3/uL Absolute Nucleated RBC (0.0-0.012) X10*3/uL Nucleated RBC % (auto) (0.0-0.2) /100WBC Sodium 140 (135-145) mmol/L Potassium 4.3 (3.3-5.1) mmol/L Chloride 108 (96-108) mmol/L Carbon Dioxide 22 (22-29) mmol/L Anion Gap 14 (12-20) BUN 7 L (9-16) mg/dL Creatinine 0.78 (0.5-1.4) mg/dL Estim Creat Clear Calc 108.3 Estimated GFR > 60 Random Glucose 96 (60-115) mg/dL Calcium 9.2 D (8.4-10.2) mg/dL Beta HCG, Quant < 2 mIU/mL Urine Color Urine Appearance Urine pH (5.0-9.0) Ur Specific [place] (1.005-1.025) Urine Protein (Neg-Trace) mg/dL Urine Glucose (UA) (Negative) mg/dL Urine Ketones (Negative) mg/dL Urine Blood (Negative) Urine Nitrite (Negative) Ur Leukocyte Esterase (Negative) Urine Test (NEGATIVE) Radiology Impression Discussion of test interpretation with radiology: I have reviewed the radiologist's reading. ( US/US pelvic and transvaginal IMPRESSION: No acute sonographic abnormalities to explain the patient's symptoms. As above, the spectral Doppler to the left ovary was not confirmed in this examination, possibly due to limitations of technique. If an acute ovarian pathology is suspec) Tests considered The following testing was considered but not selected: CT scan Prescription Management I considered prescription management with: Pain Medication and Antibiotic Medications Administered Discontinued Medications Generic Name Dose Route Start Last Admin Trade Name Freq PRN Reason Stop Dose Admin Acetaminophen 650 mg 09/17/22 09:35 09/17/22 09:47 Acetaminophen 325 Mg Tablet PO 09/17/22 09:36 650 mg ONCE ONE Administration Discharge Plan Discharge Clinical Impression: Abdominal pain, suprapubic, Urinary frequency Patient Disposition: Home, Self-Care Instructions: Pelvic Pain in Women (ED), Urinary Urgency and Frequency (DC) Prescriptions: New dicyclomine 20 mg tablet 20 mg PO QID PRN (Reason: abdominal discomfort) Qty: 30 0RF No Action albuterol sulfate [Ventolin HFA] 90 mcg/actuation HFA aerosol inhaler 1 puff PO Q6-8H Qty: 18 3RF ferrous sulfate [FeroSul] 325 mg (65 mg iron) tablet 325 mg PO BID Qty: 60 3RF metronidazole 500 mg tablet 500 mg PO BID 7 Days Qty: 14 0RF Rx Instructions: Take with food, Avoid alcohol and vinegar products Paxlovid (EUA) 300 mg (150 mg x 2)-100 mg tablets,dose pack See Rx Instructions PO .COMPLEX Qty: 30 0RF Rx Instructions: take TWO 150 mg tablets of nirmatrelvir with ONE 100 mg tablet of ritonavir twice daily for 5 days PO ibuprofen 800 mg tablet 800 mg PO Q8H PRN (Reason: pain) Qty: 14 0RF acetaminophen [Tylenol Extra Strength] 500 mg tablet 500 mg PO Q6H PRN (Reason: pain or fever) Qty: 20 0RF (DME) Blood Pressure Cuff Misc See Rx Instructions .ROUTE .MEDSUPPLY Qty: 1 0RF Rx Instructions: As directed medroxyprogesterone [Depo-Provera] 150 mg/mL syringe 150 mg IM ONCE Qty: 1 0RF Vitamin Plus Low Iron 27 mg iron- 1 mg tablet 1 tab PO DAILY Qty: 30 11RF ondansetron HCl 4 mg tablet 4 mg PO Q8H Qty: 7 0RF Referrals: Logan Almonte MD [Physician] - 3 days Coral Colvin MD [Physician] - 2 weeks
[2022-09-17 09:29] LABS: MANUAL DIFF FLAG NO
[2022-09-17 09:30] LABS: Basophils Absolute Auto 0.1 X10*3/uL (0.0-0.2); Basophils Percent Auto 0.8 % (0-2); Eosinophils Absolute Auto 0.5 X10*3/uL (0.0-0.4); Eosinophils Percent Auto 5.3 % (0-4); Hematocrit 41.7 % (37.0-47.0); Hemoglobin 14.2 g/dl (12.0-16.0); Imm Gran Abs Auto 0.03 X10*3/uL (0.00-0.03); Imm Gran Pct Auto 0.3 % (0.0-0.4); Lymphocytes Absolute Auto 2.5 X10*3/uL (1.2-4.9); Lymphocytes Percent Auto 26.2 % (20-40); Mean Corpuscular HGB Conc 34.1 g/dl (31.0-35.0); Mean Corpuscular Hemoglobin 29.3 pg (27.0-33.0); Mean Platelet Volume 9.6 fL (9.4-12.3); Monocytes Absolute Auto 0.8 X10*3/uL (0.1-1.2); Monocytes Percent Auto 8.7 % (2-11); Neutrophils Absolute Auto 5.6 x10*3/uL (2.0-8.3); Neutrophils Percent Auto 58.7 % (45-73); Platelet Count 258 X10*3/uL (160-400); Red Blood Count 4.85 X10*6/uL (4.20-5.50); Red Cell Distribution Width 12.3 % (11.0-16.0); White Blood Count 9.6 X10*3/uL (4.8-10.8)
[2022-09-17 09:33] LABS: Appearance Urine Clear; Color Urine Yellow; Glucose Urine UA Negative (Negative); Leukocyte Esterase Urine Negative (Negative); Nitrite Urine Negative (Negative); PH 7.5 (5.0-9.0); Urine Blood Negative (Negative); Urine Ketones Trace mg/dL (Negative); Urine Protein Negative (Neg-Trace)
[2022-09-17 09:34] LABS: UPreg QC Valid YES; Urine Pregnancy NEGATIVE (NEGATIVE)
[2022-09-17 09:45] LABS: Anion Gap 14 (12-20); Blood Urea Nitrogen 7 mg/dL (9-16); Calcium 9.2 mg/dL (8.4-10.2); Carbon Dioxide 22 mmol/L (22-29); Chloride 108 mmol/L (96-108); Creatinine Clr Calc Pharmacy 108.3; Estimated Glomerular Filt Rate > 60; Glucose Random 96 mg/dL (60-115); Potassium 4.3 mmol/L (3.3-5.1); Sodium 140 mmol/L (135-145)
[2022-09-17] MEDS: Acetaminophen 325 MG TABLET 650 MG PO (09:47)
[2022-09-17 09:50] VITALS: BP 151/84; PULSE 66; O2SAT 98
[2022-09-17 09:53] LABS: HCG Quantitative < 2 mIU/mL
[2022-09-17 13:29] VITALS: BP 141/94; PULSE 71; O2SAT 98
== END 2022-09-17 13:30 | disposition home or self-care (01) ==
PROVIDERS: Emergency Provider Emergency Medicine; PCP Internal Medicine
DX: R35.0 Frequency of micturition (principal); R10.2 Pelvic and perineal pain; Z79.899 Other long term (current) drug therapy
CPT/HCPCS: 36415; 76830; 76856; 80048; 81003; 81025; 84702; 85025; 99284

== ENCOUNTER 2022-11-05 14:32 | Outpatient (REF) | payer MEDICARE, MEDICAID, SELFPAY | END 2022-11-05 14:33 | disposition home or self-care (01) | LOC: HO.US 14:32 | PROVIDERS: PCP Nurse Practitioner Family; Visit Provider Nurse Practitioner Family | DX: R10.2 Pelvic and perineal pain (principal) | CPT/HCPCS: 76830; 76856 ==

== ENCOUNTER 2023-05-27 09:50 | Outpatient (REF) | payer OTHER, SELFPAY ==
[2023-06-04 06:24] LABS: HPV mRNA E6/E7 rflx Not Detected (Not Detected)
== END 2023-05-27 09:51 | disposition home or self-care (01) ==
LOC: HO.LNP 09:50
PROVIDERS: PCP Nurse Practitioner Family; Visit Provider Obstetrics & Gynecology
DX: Z01.419 Encounter for gynecological examination (general) (routine) without abnormal findings (principal)
CPT/HCPCS: 87624; 88142

== ENCOUNTER 2023-05-27 09:50 | Outpatient (AMB) | payer OTHER, SELFPAY ==
--- NOTE | 2023-05-27 09:51 | A.OFFVIS_ITS ---
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 No complaints. Last Pap/HPV was negative in 01/25 No previous screen Mammogram FORMERLY [facility], [facility] Medical History Abdominal pain, suprapubic Early stage of Vaginal bleeding affecting early Gestational diabetes Depression Hx of Surgical History No history of previous surgery Family History Father Diabetes mellitus Kidney disease Paternal Grandmother HTN (hypertension) Arthritis Phlebitis Mother HIV (human immunodeficiency virus infection) Social History Housing: Apartment Alcohol intake: never Substance Use Type: Marijuana Current occupational status: unemployed Gender identity: Female Female Reproductive History Menstrual Age of Menarche: 13 Duration of menses: 3-5 days Date of last menstrual period: 05/24/23 control method: none Total pregnancies: 6 Full term: 4 Number of Living Children: 4 Ab spontaneous: 2 Date of last pap smear: 01/19/18 (negative) History of abnormal pap smear: Yes (2016 ASCUS, 2010 JOSE 1) Review of Systems Const All systems reviewed & are unremarkable except as noted in HPI and below Card Reports as per HPI Resp Reports as per HPI GI Reports as per HPI and Reports no additional complaints Reports as per HPI Physical Exam Const General: cooperative, healthy appearing and comfortable Chest Chest palpation & inspection: normal inspection of the chest and normal pa lpation of entire chest wall Breast/axilla inspection: normal inspection of the breasts and normal inspection of the axillae Breast/axilla palpation: normal palpation of the breasts, normal palpation of the axillae and no axillary lymphadenopathy Resp Effort & Inspection: normal respiratory effort Auscultation: clear to auscultation bilaterally Percussion: percussion normal Cardio Palpation: normal PMI Rate: regular rate Rhythm: regular rhythm Heart sounds: no murmurs and no rubs Peripheral pulses: Peripheral pulses 2+ throughout GI Inspection: Yes normal to inspection Palpation (GI): Soft to palpation, nontender, no guarding, not rigid and No hepatosplenomegaly present Percussion: Yes normal to percussion Auscultation: normal bowel sounds Rectal Exam - Female: deferred General: Yes bladder normal to palpation External Female Exam: No lesion Speculum Exam - Vagina: normal appearance of the vagina, normal palpation, normal vaginal discharge and not erythematous Speculum Exam - Cervix: normal appearance of the cervix and normal palpation Bimanual exam- vagina & uterus: normal bimanual exam, normal palpation, uterine size normal, bladder normal to palpation, consistency normal and normal palpation Bimanual Exam- Adnexa, other: normal adnexae, no masses and no tenderness Assessment & Plan Assessment & Plan (1) Well woman exam: Code(s): Z01.419 - Encounter for gynecological examination (general) (routine) without abnormal findings Plan: Co testing done. Counseled the patient about the recommended dietary allowance of 1200 mg of Calcium & 600 IU of vitamin D. Mammogram ordered. The patient was instructed to perform monthly self-breast exams and schedule annual exam in a year. All questions answered and the patient verbalized understanding. Orders: Orders MM screening mammo BI Today Z12.31 - Encounter for screening mammogram for malignant neoplasm of breast Coding Level of Care Code Est Pt Prev Care 40-64y(13561) Diagnoses Well woman exam Z01.419
[2023-05-27 09:53] VITALS: BP 120/76; BMI 25.4
== END 2023-05-27 10:12 | disposition home or self-care (01) ==
LOC: HO.HWS 09:50
PROVIDERS: PCP Nurse Practitioner Family; Visit Provider Obstetrics & Gynecology
DX: Z01.419 Encounter for gynecological examination (general) (routine) without abnormal findings (principal)
CPT/HCPCS: 99396

== ENCOUNTER 2023-06-14 09:37 | Outpatient (AMB) | payer OTHER, SELFPAY ==
--- NOTE | 2023-06-14 09:46 | MHC.OFFVIS ---
Intake Vital Signs 06/14/23 09:49 Height 5 ft 9 in Weight 171 lb 15.369 oz BMI 25.4 BP 120/72 Intake Visit Reasons: pap only Allergies No Known Allergies Allergy (Mild, Verified 05/27/23 09:54) NOT APPLICABLE HPI HPI Comments History of Present Illness Details Presenting for repeat Pap, last co testing Pap was unsatisfactory for scant cellularity, HPV negative. No complaints. COUNT INCLUDES [facility] Medical History Abdominal pain, suprapubic Early stage of Vaginal bleeding affecting early Gestational diabetes Depression Hx of Surgical History No history of previous surgery Family History Father Diabetes mellitus Kidney disease Paternal Grandmother HTN (hypertension) Arthritis Phlebitis Mother HIV (human immunodeficiency virus infection) Social History Housing: Apartment Alcohol intake: never Substance Use Type: Marijuana Current occupational status: unemployed Gender identity: Female Female Reproductive History Menstrual Age of Menarche: 13 Review of Systems Const All systems reviewed & are unremarkable except as noted in HPI and below Physical Exam General: Yes no CVA tenderness External Female Exam: normal external appearance and normal appearance of the urethra Speculum Exam - Vagina: normal appearance of the vagina, normal palpation, no lesions and no masses Speculum Exam - Cervix: normal appearance of the cervix, normal palpation, no lesions, no masses and nontender Bimanual exam- vagina & uterus: normal bimanual exam, normal palpation, uterine size normal, normal palpation, uterine shape normal, No Cervical tenderness present and non-tender Bimanual Exam- Adnexa, other: normal adnexae Back/Spine/Pelvis Back: no CVA tenderness Assessment & Plan Assessment & Plan (1) Unsatisfactory cervical Papanicolaou smear: Code(s): R87.615 - Unsatisfactory cytologic smear of cervix Plan: Pap repeated. All questions answered, the patient verbalized understanding Coding Level of Care Code Est Pt Level 3 (69271) Diagnoses Unsatisfactory cervical Papanicolaou smear R87.615
[2023-06-14 09:49] VITALS: BP 120/72; BMI 25.4
== END 2023-06-14 10:02 | disposition home or self-care (01) ==
LOC: HO.HWS 09:37
PROVIDERS: PCP Nurse Practitioner Family; Visit Provider Obstetrics & Gynecology
DX: R87.615 Unsatisfactory cytologic smear of cervix (principal)
CPT/HCPCS: 99213

== ENCOUNTER 2023-06-14 09:37 | Outpatient (REF) | payer OTHER, SELFPAY | END 2023-06-14 09:38 | disposition home or self-care (01) | LOC: HO.LNP 09:37 | PROVIDERS: PCP Nurse Practitioner Family; Visit Provider Obstetrics & Gynecology | DX: R87.615 Unsatisfactory cytologic smear of cervix (principal) | CPT/HCPCS: 88142; 99212 ==

== ENCOUNTER 2023-07-08 11:08 | Outpatient (REF) | payer OTHER, SELFPAY ==
--- NOTE | ~2023-07-08 | MM_ITS ---
EXAMINATION: MM SCREENING DIGITAL BREAST TOMOSYNTHESIS, BILATERAL CLINICAL INFORMATION: Screening. Asymptomatic. COMPARISON: Mammography: This is a baseline mammogram. TECHNIQUE: Digital breast tomosynthesis is performed in both the craniocaudal and mediolateral oblique views along with computer-aided detection (CAD). Synthesized 2D images are generated from the tomosynthesis. FINDINGS: The breasts are heterogeneously dense, which may obscure small masses (ACR BI-RADS breast composition Category c). There are no significant masses, abnormal calcifications, or other abnormalities. MM/MM tomosynthesis screening BI IMPRESSION: No mammographic evidence of malignancy. ASSESSMENT: BI-RADS BI-RADS 1 - Negative RECOMMENDATION: Routine annual mammography screening. 1 year F/U This examination should not preclude the clinical evaluation of a suspicious palpable abnormality. This patient's information was entered into a reminder system with a target due date for their next mammogram.
== END 2023-07-08 11:09 | disposition home or self-care (01) ==
LOC: HO.MAMMO 11:08
PROVIDERS: PCP Internal Medicine; Visit Provider Obstetrics & Gynecology
DX: Z12.31 Encounter for screening mammogram for malignant neoplasm of breast (principal)
CPT/HCPCS: 77063; 77067

== ENCOUNTER → 2023-07-08 11:15 | Outpatient (BNV) | payer OTHER, SELFPAY | PROVIDERS: PCP Internal Medicine; Visit Provider Radiology Diagnostic Radiology | DX: Z12.31 Encounter for screening mammogram for malignant neoplasm of breast (principal) | CPT/HCPCS: 77063; 77067 ==

== ENCOUNTER 2023-07-23 08:36 | Outpatient (REF) | payer OTHER, SELFPAY | END 2023-07-23 08:37 | disposition home or self-care (01) | LOC: HO.LNP 08:36 | PROVIDERS: Visit Provider Obstetrics & Gynecology | DX: Z13.89 Encounter for screening for other disorder (principal) ==

== ENCOUNTER 2023-07-23 08:47 | Outpatient (REF) | payer OTHER, SELFPAY ==
[2023-07-23 10:04] LABS: HCG Quantitative 2944 mIU/mL
[2023-07-24 06:36] LABS: CT PCR NOT DETECTED (Not Detect.); NG PCR NOT DETECTED (Not Detect.)
== END 2023-07-23 08:48 | disposition home or self-care (01) ==
LOC: HO.LAB 08:47
PROVIDERS: PCP Internal Medicine; Visit Provider Obstetrics & Gynecology
DX: Z34.90 Encounter for supervision of normal pregnancy, unspecified, unspecified trimester (principal); Z20.2 Contact with and (suspected) exposure to infections with a predominantly sexual mode of transmission
CPT/HCPCS: 0353U; 36415; 84702

== ENCOUNTER 2023-07-23 09:55 | Outpatient (REF) | payer OTHER, SELFPAY ==
--- NOTE | ~2023-07-23 | US_ITS ---
EXAMINATION: US OBSTETRICAL ULTRASOUND CLINICAL INFORMATION: . Size and date evaluation. COMPARISON: Pelvic ultrasound from 11/05/2022 LMP: Uncertain. TECHNIQUE: Sonographic imaging of the pelvis is performed using transabdominal and transvaginal transducers. FINDINGS: The anteflexed, anteverted uterus has normal size, contour and myometrial echotexture. No evidence of leiomyoma. The cervix is normal; it is approximately 3.5 cm in length. Within the endometrial cavity, there is a gestational sac, mean diameter of 0.64 cm, corresponding to estimated gestational age of 5 weeks, 2 days. A small yolk sac is seen. Also, there appears to be a small pole of < 0.2 cm in length. Currently, unable to visualize any cardiac activity. A heartbeat might not be detected until an embryo is at least 4 mm in size, and heartbeat should definitely be seen when the pole is at least 7 mm in size. Follow-up is recommended to ensure that this evolves into a normal viable intrauterine gestation. The right ovary measures 4.8 x 3.1 x 2.4 cm. A 3.6 x 2.6 x 2.9 cm cyst of the right ovary has a few small nodular foci of increased echotexture along its inner wall as seen on prior ultrasound from 11/05/2022. This cyst was larger, had measured up to 5 cm maximum dimension, on prior ultrasound from 11/05/2022. The left ovary is normal; it measures 2.5 x 2.8 x 1.5 cm. No pelvic free fluid. US/US OB <= 14 weeks fetus IMPRESSION: There is an intrauterine gestation. However, currently unable to document viability. Clinical follow-up and/or ultrasound follow-up is recommended. Based on the gestational sac size, the estimated gestational age is 5 weeks, 2 days. There is chronic complex appearance of a cyst of the right ovary. However, this cyst has decreased in size compared to 11/05/2022.
== END 2023-07-23 09:56 | disposition home or self-care (01) ==
LOC: HO.US 09:55
PROVIDERS: PCP Internal Medicine; Visit Provider Obstetrics & Gynecology
DX: O09.511 Supervision of elderly primigravida, first trimester (principal)
CPT/HCPCS: 76801; 99212

== ENCOUNTER 2023-07-23 11:14 | Outpatient (AMB) | payer OTHER, SELFPAY ==
[2023-07-23 11:15] VITALS: BP 122/76; BMI 25.4
--- NOTE | 2023-07-23 11:15 | MHC.OFFVIS ---
Intake Vital Signs 07/23/23 11:15 Height 5 ft 9 in Weight 171 lb 15.369 oz BMI 25.4 BP 122/76 Intake Visit Reasons: pelvic pain/ h/o ectopic Allergies No Known Allergies Allergy (Mild, Verified 05/27/23 09:54) NOT APPLICABLE HPI HPI Comments History of Present Illness Details Presenting with early , LMP 1st week of June complaining of minimal pelvic cramping left more than the right, no vaginal bleeding. The patient has history of ectopic status post methotrexate Ultrasound done today, the report is not available but unofficial reading shows a 5 weeks and 2 days of gestation intrauterine gestational sac with no heart rate, no yolk sac HCG 2944, blood type O positive [facility] Medical History Early stage of Abdominal pain, suprapubic Vaginal bleeding affecting early Gestational diabetes Depression Hx of Surgical History No history of previous surgery Family History Father Diabetes mellitus Kidney disease Paternal Grandmother HTN (hypertension) Arthritis Phlebitis Mother HIV (human immunodeficiency virus infection) Social History Housing: Apartment Alcohol intake: never Substance Use Type: Marijuana Current occupational status: unemployed Gender identity: Female Female Reproductive History Menstrual Age of Menarche: 13 Review of Systems Const All systems reviewed & are unremarkable except as noted in HPI and below Physical Exam Vital Signs: Last Vital Signs BP 122/76 07/23/23 11:15 BMI result Body Mass Index 25.4 GI Palpation (GI): Soft to palpation and nontender Percussion: Yes normal to percussion General: Yes no CVA tenderness External Female Exam: normal external appearance and normal appearance of the urethra Speculum Exam - Vagina: normal appearance of the vagina, normal palpation, no lesions and no masses Speculum Exam - Cervix: normal appearance of the cervix, normal palpation, no lesions, no masses and nontender Bimanual exam- vagina & uterus: normal bimanual exam, normal palpation, uterine size normal, normal palpation, uterine shape normal, No Cervical tenderness present and non-tender Bimanual Exam- Adnexa, other: normal adnexae Back/Spine/Pelvis Back: no CVA tenderness Assessment & Plan Assessment & Plan (1) Early stage of : Comment: h/o ectopic Code(s): Z34.90 - Encounter for supervision of normal , unspecified, unspecified trimester Plan: GC/CT taken. The patient was instructed to go to emergency room for repeat HCG draw in 48 hours in the emergency room since lab is not open on Sundays. Discussed with the patient the finding on ultrasound and pelvic exam. SAB/ectopic warnings given the patient, she is to go to emergency room or call in case of pelvic pain and or vaginal bleeding. Instructions given the patient to schedule a Follow-up appointment in 4 days with repeat hCG quantitative. All questions answered, the patient verbalized understanding Orders: Orders HCG Quantitative 07/25/23 Z34.90 - Encounter for supervision of normal , unspecified, unspecified trimester HCG Quantitative 07/27/23 Z34.90 - Encounter for supervision of normal , unspecified, unspecified trimester Coding Level of Care Code Est Pt Level 3 (69835) Diagnoses Early stage of Z34.90
== END 2023-07-23 13:08 | disposition home or self-care (01) ==
LOC: HO.HWS 11:15
PROVIDERS: PCP Internal Medicine; Visit Provider Obstetrics & Gynecology
DX: Z34.90 Encounter for supervision of normal pregnancy, unspecified, unspecified trimester (principal)
CPT/HCPCS: 99213

== ENCOUNTER 2023-07-25 09:05 | Outpatient (REF) | payer OTHER, SELFPAY ==
[2023-07-25 09:53] LABS: HCG Quantitative 4743 mIU/mL
== END 2023-07-25 09:06 | disposition home or self-care (01) ==
LOC: HO.LAB 09:05
PROVIDERS: Obstetrics & Gynecology
DX: O09.521 Supervision of elderly multigravida, first trimester (principal); O09.11 Supervision of pregnancy with history of ectopic pregnancy, first trimester
CPT/HCPCS: 36415; 84702

== ENCOUNTER 2023-07-27 08:03 | Outpatient (REF) | payer OTHER, SELFPAY ==
[2023-07-27 08:57] LABS: HCG Quantitative 8653 mIU/mL
== END 2023-07-27 08:04 | disposition home or self-care (01) ==
LOC: HO.LAB 08:03
PROVIDERS: Visit Provider Obstetrics & Gynecology
DX: O09.521 Supervision of elderly multigravida, first trimester (principal); O34.81 Maternal care for other abnormalities of pelvic organs, first trimester; N83.291 Other ovarian cyst, right side; Z3A.01 Less than 8 weeks gestation of pregnancy; Z86.32 Personal history of gestational diabetes
CPT/HCPCS: 36415; 84702; 99212

== ENCOUNTER 2023-07-27 09:56 | Outpatient (AMB) | payer OTHER, SELFPAY ==
[2023-07-27 09:59] VITALS: BP 120/72; BMI 25.2
--- NOTE | 2023-07-27 09:59 | MHC.OFFVIS ---
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 GC/CT were negative. HCG done on 07/22 was 2944, increased by 61% up to 4743 on 07/24, increased by 82% up to 8653 today Ultrasound done on 07/22 showed the following: IMPRESSION: There is an intrauterine gestation. However, currently unable to document viability. Clinical follow-up and/or ultrasound follow-up is recommended. Based on the gestational sac size, the estimated gestational age is 5 weeks, 2 days. There is chronic complex appearance of a cyst of the right ovary. However, this cyst has decreased in size compared to 11/05/2022. [facility] Medical History Early stage of Abdominal pain, suprapubic Vaginal bleeding affecting early Gestational diabetes Depression Hx of Surgical History No history of previous surgery Family History Father Diabetes mellitus Kidney disease Paternal Grandmother HTN (hypertension) Arthritis Phlebitis Mother HIV (human immunodeficiency virus infection) Social History Housing: Apartment Alcohol intake: never Substance Use Type: Marijuana Current occupational status: unemployed Gender identity: Female Female Reproductive History Menstrual Age of Menarche: 13 control method: none Review of Systems Const All systems reviewed & are unremarkable except as noted in HPI and below Reports as per HPI and Reports no additional complaints GI Reports no additional complaints Reports no additional complaints Physical Exam Vital Signs: Last Vital Signs BP 120/72 07/27/23 09:59 BMI result Body Mass Index 25.2 Assessment & Plan Assessment & Plan (1) Early stage of : Comment: h/o ectopic Code(s): Z34.90 - Encounter for supervision of normal , unspecified, unspecified trimester Plan: Discussed with the patient the results of the ultrasound, and the increase hCG. SAB/ectopic warnings given the patient, the patient was given instructions to call or go to emergency room in case of pelvic pain and or bleeding and will order follow-up ultrasound 11 day from the previous 1 after 08/02 (2) Complex ovarian cyst: Comment: Since 10/30 Code(s): N83.299 - Other ovarian cyst, unspecified side Plan: Discussed with the patient the complex ovarian cyst by ultrasound. Discussed with the patient the Ultrasound findings, the main limitation of transvaginal ultrasonography alone as a diagnostic tool to distinguish benign from malignant masses relates to its lack of specificity and low positive predictive value for cancer. The differential diagnosis discussed with the patient includes the following but not limited to: benign and malignant gynecological and non-gynecological causes. Options of treatment were discussed with the patient including but not limited to laparoscopic ovarian cystectomy/oophorectomy versus expectant management, all pros and cons, risks benefits of each were discussed with the patient, the patient decided to think about it and discuss further next visit I Orders: Orders US OB <= 14 weeks fetus 08/04/23 Z34.90 - Encounter for supervision of normal , unspecified, unspecified trimester Coding Level of Care Code Est Pt Level 3 (05494) Diagnoses Early stage of Z34.90 Complex ovarian cyst N83.299
== END 2023-07-27 10:38 | disposition home or self-care (01) ==
LOC: HO.HWS 09:56
PROVIDERS: PCP Internal Medicine; Visit Provider Obstetrics & Gynecology
DX: Z34.90 Encounter for supervision of normal pregnancy, unspecified, unspecified trimester (principal); N83.299 Other ovarian cyst, unspecified side
CPT/HCPCS: 99213

== ENCOUNTER 2023-08-04 12:33 | Outpatient (REF) | payer OTHER, SELFPAY ==
--- NOTE | ~2023-08-04 | US_ITS ---
EXAMINATION: US OBSTETRICAL ULTRASOUND CLINICAL INFORMATION: Encounter for supervision abnormal COMPARISON: Obstetrical ultrasound 07/23/2023, gestational sac only 5 weeks 2 days, pelvic ultrasound 11/05/2022 LMP: Unknown. TECHNIQUE: Transvaginal imaging of the pelvis is performed FINDINGS: There is a single intrauterine gestational sac with visible yolk sac, embryo/fetus, and cardiac activity. There is no significant subchorionic hemorrhage or hematoma. HR: 136 beats per minute. CRL (crown rump length): 0.75 cm (6 weeks 5 days +/- 4 days). AURELIA (estimated date of delivery): 03/24/2024 +/- 4 days. MATERNAL ADNEXA: The right maternal ovary measures 5.5 x 4.1 x 3.1 cm. A 4.2 x 2.2 x 3.0 cm complex cyst is seen in the right ovary. This cyst measured up to 5 cm maximum dimension on prior ultrasound from 11/05/2022 The left maternal ovary measures 3.4 x 3.0 x 2.0 cm. 2.0 x 1.0 x 2.0 cm cyst likely represents the corpus luteum There is no free fluid within the cul-de-sac. US/US OB <= 14 weeks fetus IMPRESSION: 1. Single intrauterine gestation with ultrasound gestational age of 6 weeks 5 days +/- 4 days. 2. Estimated date of delivery is 03/24/2024 +/- 4 days.
== END 2023-08-04 12:34 | disposition home or self-care (01) ==
LOC: HO.US 12:33
PROVIDERS: PCP Internal Medicine; Visit Provider Obstetrics & Gynecology
DX: O09.529 Supervision of elderly multigravida, unspecified trimester (principal)
CPT/HCPCS: 76801

== ENCOUNTER 2023-08-05 09:34 | Outpatient (AMB) | payer OTHER, SELFPAY ==
[2023-08-05 09:37] VITALS: BP 108/68
--- NOTE | 2023-08-05 09:37 | A.OFFVIS_ITS ---
Intake Vital Signs 08/05/23 09:37 BP 108/68 Intake Visit Reasons: US follow up per Allergies No Known Allergies Allergy (Mild, Verified 07/27/23 10:00) NOT APPLICABLE HPI HPI Comments History of Present Illness Details Presenting for ultrasound follow-up with no complaints, no pelvic cramping and or bleeding. On vitamin 1 tablet p.o. q.d.. Ultrasound done today, official report not available yet, unofficial review showed the following: Intrauterine live gestation measuring 6 weeks and 5 days of gestation, heart rate 135 beats per minute, EDC 03/14/2024 [facility] Medical History (Updated 08/05/23 @ 09:47 by Logan Almonte MD) Early stage of Abdominal pain, suprapubic Vaginal bleeding affecting early Gestational diabetes Depression Hx of Surgical History No history of previous surgery Family History Father Diabetes mellitus Kidney disease Paternal Grandmother HTN (hypertension) Arthritis Phlebitis Mother HIV (human immunodeficiency virus infection) Social History Housing: Apartment Alcohol intake: never Substance Use Type: Marijuana Current occupational status: unemployed Gender identity: Female Female Reproductive History Menstrual Age of Menarche: 13 Review of Systems Const All systems reviewed & are unremarkable except as noted in HPI and below Reports as per HPI and Reports no additional complaints GI Reports no additional complaints Reports no additional complaints Physical Exam Vital Signs: Last Vital Signs BP 108/68 08/05/23 09:37 Assessment & Plan Assessment & Plan (1) Early stage of : Code(s): Z34.90 - Encounter for supervision of normal , unspecified, unspecified trimester Plan: Discussed with the patient the finding on ultrasound showing a live intrauterine gestation EDC 03/24/2024. The patient is interested in having her care at [facility], the patient has signed medical release form. [facility] warnings given to the patient she is to call or go to emergency room in case of pelvic pain and or bleeding, instructions given the patient to call for an appointment in case was not able to have access to care within 2 weeks at her OBGYN practice for choice . vitamin tablet p.o. q.d. All questions answered, the patient verbalized understanding (2) Complex ovarian cyst: Comment: Since 10/30 Code(s): N83.299 - Other ovarian cyst, unspecified side Plan: Discussed with the patient the finding on her ultrasound on 07/22 complex ovarian cyst seen since 10/30, differential diagnosis discussed with the patient included benign premalignant or malignant potential, explained to the patient that she needs further follow-up throughout this regarding the complex cyst . All questions answered, the patient verbalized understanding Coding Level of Care Code Est Pt Level 3 (23556) Diagnoses Early stage of Z34.90 Complex ovarian cyst N83.299
== END 2023-08-05 09:52 | disposition home or self-care (01) ==
LOC: HO.HWS 09:34
PROVIDERS: PCP Internal Medicine; Visit Provider Obstetrics & Gynecology
DX: Z34.90 Encounter for supervision of normal pregnancy, unspecified, unspecified trimester (principal); N83.299 Other ovarian cyst, unspecified side
CPT/HCPCS: 99213

== ENCOUNTER → 2023-08-05 09:34 | Outpatient (BNVA) | payer OTHER, SELFPAY | PROVIDERS: PCP Internal Medicine; Visit Provider Obstetrics & Gynecology | DX: Z34.90 Encounter for supervision of normal pregnancy, unspecified, unspecified trimester (principal); N83.299 Other ovarian cyst, unspecified side | CPT/HCPCS: 99212 ==

== ENCOUNTER 2023-09-04 10:49 | Emergency (ER) | payer OTHER, SELFPAY ==
--- NOTE | ~2023-09-04 | US_ITS ---
EXAMINATION: US OBSTETRICAL ULTRASOUND CLINICAL INFORMATION: Vaginal bleeding COMPARISON: OB ultrasound 08/04/2023 LMP: Unknown. TECHNIQUE: Ultrasound of the maternal pelvis is performed using transabdominal and transvaginal transducers. Transvaginal imaging is performed due to inadequate visualization transabdominally. M-mode Doppler is also performed. FINDINGS: The previously seen intrauterine gestational sac and pole are no longer identified compatible with loss. The endometrium is thickened to 2.8 cm and heterogeneous with complex echogenic fluid in the endometrial canal suggestive of blood products, making retained product of conception difficult to exclude. MATERNAL ADNEXA: The right maternal ovary measures 4.9 x 3.2 x 2.6 cm. A 4.4 cm right ovarian cyst with internal echoes and avascular material, recommend follow-up pelvic ultrasound in 6-12 weeks. The left maternal ovary measures 3.6 x 1.9 x 2.8 cm. Physiologic corpus luteum. There is no significant maternal adnexal mass. No maternal pelvic ascites. US/US OB pelvic and transvaginal IMPRESSION: * The previously seen intrauterine gestational sac and pole are no longer identified compatible with loss. The endometrium is thickened to 2.8 cm and heterogeneous with complex echogenic fluid in the endometrial canal suggestive of blood products, making retained product of conception difficult to exclude. * A 4.4 cm right ovarian cyst with internal echoes and avascular material, recommend follow-up pelvic ultrasound in 6-12 weeks.
[2023-09-04 10:50] VITALS: BP 115/74; PULSE 115; RESP 16; TEMP 36.5; O2SAT 97; BMI 25.8
--- NOTE | 2023-09-04 11:06 | ED_ITS ---
HPI - General Chief complaint: Vaginal Bleeding Stated complaint: vaginal bleeding 12wks Time Seen by Provider: 09/04/23 11:05 Source: patient Mode of arrival: ambulatory Limitations: no limitations History of Present Illness HPI Narrative: 43 yo who is currently 8ish weeks with LMP 06/12/2023, with history of and history of ectopic pregnancies in the past who presents to the ER for evaluation of uterine cramping and heavy vaginal bleeding with clots that started today. Patient states for the last 2 days she has had some spotting with small amounts of brown vaginal discharge. Today she started with abdominal cramping and was passing clots. She started vomiting. She came right to the ER for evaluation. She previously saw Dr. Almonte but was referred to [facility] as she is high risk. Patient denies any fever, chills, green or yellow vaginal discharge. She has no back pain or urinary symptoms. MD Complaint: abdominal pain and vaginal bleeding Onset (ago): hour(s) Pain Consistency: constant Location: pelvis Severity: moderate Severity scale (1-10): 7 Quality: Cramping Relieving factors: none Exacerbating factors: none Associated symptoms: nausea, vomiting, vaginal bleeding and abdominal pain Vaginal discharge: none Vaginal bleeding: heavy and clots Date of Last Menstrual Period: 06/12/23 Patient : Yes Expected Date of Delivery: 04/15/24 Number of Weeks : 8 care: followed by OB and previous ultrasound confirms IUP Related Data : 7 Para: 4 Total number of abortions (spontaneous and elective): 2 Previous Rx's ?Medication ?Instructions ?Recorded miscellaneous medical supply #1 ea 09/25/20 (Blood Pressure Cuff) ferrous sulfate 325 mg (65 mg 325 mg PO BID #60 tabs 04/21/21 iron) tablet (FeroSul) acetaminophen 500 mg tablet 500 mg PO Q6H PRN pain or fever 07/30/21 (Tylenol Extra Strength) #20 tabs dicyclomine 20 mg tablet 20 mg PO QID PRN abdominal 09/17/22 discomfort #30 tabs albuterol sulfate 90 mcg/actuation 1 puff PO Q6-8H #18 grams 10/29/22 aerosol inhaler (Ventolin HFA) ibuprofen 800 mg tablet 800 mg PO Q8H PRN pain #14 tabs 10/29/22 ondansetron HCl 4 mg tablet 4 mg PO Q8H #7 tabs 10/29/22 vit no.95-ferrous 1 tab PO DAILY #30 tabs 04/06/23 fumarate 28 mg-folic acid 800 mcg tablet () Allergies Allergy/AdvReac Type Severity Reaction Status Date / Time No Known Allergies Allergy Mild NOT Verified 09/04/23 10:53 APPLICABLE Review of Systems 2 Review of Systems: Yes all other systems are reviewed and are negative [facility] Past Medical History Medical History (Updated 09/04/23 @ 11:59 by KIRBY Ahn) Early stage of Abdominal pain, suprapubic Vaginal bleeding affecting early Gestational diabetes Depression Hx of Surgical History No history of previous surgery : 7 Para: 4 Total number of abortions (spontaneous and elective): 2 Date of Last Menstrual Period: 06/12/23 Family History Family History Father Diabetes mellitus Kidney disease Paternal Grandmother HTN (hypertension) Arthritis Phlebitis Mother HIV (human immunodeficiency virus infection) Social History Social History Housing: Apartment Alcohol intake: never Smoked in Last 30 Days: No Use of substances other than those prescribed or required for medical reasons: No Substance Use Type: Marijuana Advance Directives: No Advance Directives Information Provided: No Do you have a plan to hurt others: No Plan Patient : No Current occupational status: unemployed Gender identity: Female Physical Exam 2 Vital Signs: Vital Signs: Last Vital Signs Temp 97.7 F 09/04/23 14:04 Pulse 74 09/04/23 14:04 Resp 16 09/04/23 14:04 BP 101/63 09/04/23 14:04 Pulse Ox 96 09/04/23 14:04 O2 Del Method Room Air 09/04/23 14:04 BMI result Body Mass Index 25.8 Appearance: Alert. Oriented X3. No acute distress. Head: normocephalic, atraumatic. Eyes: Pupils equal, round and reactive to light. ENT: Pharynx normal. No tonsillar swelling or exudate. Neck: Normal inspection. Neck supple. CVS: Normal heart rate and rhythm. Pulses normal. Respiratory: No respiratory distress. Breath sounds normal. Abdomen: Soft and nontender. +BS x4 Pelvic: Skin: Skin warm and dry. Normal skin color. Normal skin turgor. No rashes. Extremities: No lower extremity edema. No joint swelling. Neuro/psych: Oriented X 3. No motor deficit. No sensory deficit. CN II-XII intact. Normal speech and cognition. Course Reevaluation(s) Reevaluation #1: Patient no longer bleeding. She is feeling better. She is back from ultrasound. Time: 12:41 Medications Administered Discontinued Medications Generic Name Dose Route Start Last Admin Trade Name Freq PRN Reason Stop Dose Admin Acetaminophen 975 mg 09/04/23 11:14 09/04/23 12:02 Acetaminophen 325 Mg Tablet PO 09/04/23 11:15 975 mg ONCE ONE Administration Ondansetron HCl 4 mg 09/04/23 11:14 09/04/23 12:02 Ondansetron Odt 4 Mg Tab.Rapdis TRANSLINGU 09/04/23 11:15 4 mg ONCE ONE Administration Medical Decision Making Medical Decision Making [facility] Narrative: 43 yo presenting to the ER for evaluation of vaginal bleeding and cramping that started this morning. Patient was passing clots and large pieces of tissue at home. No longer actively bleeding. Her abdomen has mild suprapubic tenderness but without rigidity, guarding or rebound. Labs showing hCG is down trending. She is O positive. She has not anemic. Ultrasound is showing no IUP, difficult to exclude retained products of conception. On examination her cervix is closed, small amount of blood in the vaginal canal, no clots. no discharge. Patient counseled on results of miscarriage and possibility of retained products of conception. close montioring of symptoms and close OB follow up encouraged. strict return precautions discussed. stable for d/c home. Differential Diagnosis Differential Diagnoses: The differential diagnosis associated with the presentation includes Spontaneous , normal 1st trimester bleeding, subchorionic hemorrhage, molar , ectopic less likely given previous ultrasound showing IUP Lab Data [facility] Lab Attestation statement: I reviewed the patient's lab results. Downtrending hCG, no anemia 09/04/23 11:05 09/04/23 11:05 Labs: Lab Results 04/27/24 04/27/24 04/27/24 Range/Units 11:05 12:23 12:39 WBC 8.8 (4.8-10.8) X10*3/uL RBC 4.78 (4.20-5.50) X10*6/uL Hgb 14.0 (12.0-16.0) g/dl Hct 40.5 (37.0-47.0) % MCV 84.7 (80.0-98.0) fL MCH 29.3 (27.0-33.0) pg MCHC 34.6 (31.0-35.0) g/dl RDW 12.2 (11.0-16.0) % Plt Count 298 (160-400) X10*3/uL MPV 9.7 (9.4-12.3) fL Immature Gran % (Auto) 0.2 (0.0-0.4) % Neut % (Auto) 62.2 (45-73) % Lymph % (Auto) 27.4 (20-40) % Crook % (Auto) 7.9 (2-11) % Eos % (Auto) 1.7 (0-4) % Baso % (Auto) 0.6 (0-2) % Lymph # (Auto) 2.4 (1.2-4.9) X10*3/uL Crook # (Auto) 0.7 (0.1-1.2) X10*3/uL Eos # (Auto) 0.2 (0.0-0.4) X10*3/uL Baso # (Auto) 0.1 (0.0-0.2) X10*3/uL Abs Immat Gran (auto) 0.02 (0.00-0.03) X10*3/uL Absolute Neuts (auto) 5.4 (2.0-8.3) x10*3/uL Absolute Nucleated RBC 0.000 (0.0-0.012) X10*3/uL Nucleated RBC % (auto) 0.0 (0.0-0.2) /100WBC Sodium 137 (135-145) mmol/L Potassium 4.0 (3.3-5.1) mmol/L Chloride 107 (96-108) mmol/L Carbon Dioxide 21 L (22-29) mmol/L Anion Gap 13 (12-20) BUN 6 L (9-16) mg/dL Creatinine 0.72 (0.5-1.4) mg/dL Estim Creat Clear Calc 105.2 Estimated GFR > 60 Random Glucose 116 H (60-115) mg/dL Calcium 9.5 (8.4-10.2) mg/dL Total Bilirubin 0.6 (0.0-1.0) mg/dL AST 15 (5-31) U/L ALT 14 (0-31) U/L Alkaline Phosphatase 74 (39-117) U/L Total Protein 7.6 (6.5-8.0) g/dL Albumin 4.4 (3.5-5.0) g/dL Beta HCG, Quant 6218 mIU/mL Urine Color Dark Yellow Urine Appearance Cloudy Urine pH 6.5 (5.0-9.0) Ur Specific Vincent 1.020 (1.005-1.025) Urine Protein 100 (2+) H (Neg-Trace) mg/dL Urine Glucose (UA) Negative (Negative) mg/dL Urine Ketones 15 (Negative) mg/dL Urine Blood Large (3+) H (Negative) Urine Nitrite Negative (Negative) Ur Leukocyte Esterase Trace H (Negative) Urine RBC >20 H (0-2) /HPF Urine WBC 0-5 (0-5) /HPF Ur Squamous Epith Cells 6-10 (0-2) /HPF Urine Bacteria 1+ (None Seen) Hyaline Casts 3-5 (0-2) /LPF Granular Casts Present Urine Test POSITIVE H (NEGATIVE) Blood Type O Positive Independent Interpretation I performed an independent interpretation of an: Ultrasound Interpretation: No IUP visualized Radiology Impression Discussion of test interpretation with radiology: I have reviewed the radiologist's reading. Radiologist Impression: US/US OB pelvic and transvaginal IMPRESSION: * The previously seen intrauterine gestational sac and pole are no longer identified compatible with loss. The endometrium is thickened to 2.8 cm and heterogeneous with complex echogenic fluid in the endometrial canal suggestive of blood products, making retained product of conception difficult to exclude. * A 4.4 cm right ovarian cyst with internal echoes and avascular material, recommend follow-up pelvic ultrasound in 6-12 weeks. Independent Historian Clinical information obtained from an independent historian. History obtained from or confirmed by: Spouse External Record Review External record reviewed: Office record, Outpatient record, Prior outpatient labs and Prior outpatient radiology Prescription Management I considered prescription management with: Pain Medication Procedures Perimortem Number of Weeks : 8 Discharge Plan Discharge Clinical Impression: Spontaneous Patient Disposition: Home, Self-Care Instructions: Miscarriage (ED) Additional Instructions: Ultrasound showed no in your uterus You experienced a miscarriage Monitor for signs and symptoms of infection including fever, chills, worsening pain or hemorrhage Follow up with your area director Take motrin and tylenol as needed for pain If you develop new or worsening symptoms call 911 or come back to the ER for further evaluation. Prescriptions: No Action ferrous sulfate [FeroSul] 325 mg (65 mg iron) tablet 325 mg PO BID Qty: 60 3RF PNV cmb#95-ferrous fumarate-FA [] 28 mg iron- 800 mcg tablet 1 tab PO DAILY Qty: 30 3RF acetaminophen [Tylenol Extra Strength] 500 mg tablet 500 mg PO Q6H PRN (Reason: pain or fever) Qty: 20 0RF dicyclomine 20 mg tablet 20 mg PO QID PRN (Reason: abdominal discomfort) Qty: 30 0RF (DME) Blood Pressure Cuff Misc See Rx Instructions .ROUTE .MEDSUPPLY Qty: 1 0RF Rx Instructions: As directed albuterol sulfate [Ventolin HFA] 90 mcg/actuation HFA aerosol inhaler 1 puff PO Q6-8H Qty: 18 3RF ibuprofen 800 mg tablet 800 mg PO Q8H PRN (Reason: pain) Qty: 14 0RF ondansetron HCl 4 mg tablet 4 mg PO Q8H Qty: 7 0RF medroxyprogesterone [Depo-Provera] 150 mg/mL syringe 150 mg IM ONCE Qty: 1 0RF Referrals: Po,Deandra Lowry MD [Primary Care Provider] - Logan Almonte MD [Physician] - Interventions: ED Discharge Assessment Last Done: 09/04/23 14:04 Discharge Date/Time: 09/04/23 14:05 Print Language: Macedonian
[2023-09-04 11:10] LABS: MANUAL DIFF FLAG NO
[2023-09-04 11:12] LABS: Basophils Absolute Auto 0.1 X10*3/uL (0.0-0.2); Basophils Percent Auto 0.6 % (0-2); Eosinophils Absolute Auto 0.2 X10*3/uL (0.0-0.4); Eosinophils Percent Auto 1.7 % (0-4); Hematocrit 40.5 % (37.0-47.0); Imm Gran Abs Auto 0.02 X10*3/uL (0.00-0.03); Imm Gran Pct Auto 0.2 % (0.0-0.4); Lymphocytes Absolute Auto 2.4 X10*3/uL (1.2-4.9); Lymphocytes Percent Auto 27.4 % (20-40); Mean Corpuscular HGB Conc 34.6 g/dl (31.0-35.0); Mean Corpuscular Hemoglobin 29.3 pg (27.0-33.0); Mean Corpuscular Volume 84.7 fL (80.0-98.0); Mean Platelet Volume 9.7 fL (9.4-12.3); Monocytes Absolute Auto 0.7 X10*3/uL (0.1-1.2); Monocytes Percent Auto 7.9 % (2-11); Neutrophils Absolute Auto 5.4 x10*3/uL (2.0-8.3); Neutrophils Percent Auto 62.2 % (45-73); Platelet Count 298 X10*3/uL (160-400); Red Blood Count 4.78 X10*6/uL (4.20-5.50); Red Cell Distribution Width 12.2 % (11.0-16.0); White Blood Count 8.8 X10*3/uL (4.8-10.8)
--- NOTE | 2023-09-04 11:20 | PC.NURSE ---
pt to US at this time. will resume care of pt when pt returns.
[2023-09-04 11:33] LABS: Alanine Aminotransferase 14 U/L (0-31); Albumin Level 4.4 g/dL (3.5-5.0); Alkaline Phosphatase 74 U/L (39-117); Anion Gap 13 (12-20); Aspartate Amino Transferase 15 U/L (5-31); Bilirubin Total 0.6 mg/dL (0.0-1.0); Blood Urea Nitrogen 6 mg/dL (9-16); Calcium 9.5 mg/dL (8.4-10.2); Carbon Dioxide 21 mmol/L (22-29); Chloride 107 mmol/L (96-108); Creatinine Clr Calc Pharmacy 105.2; Estimated Glomerular Filt Rate > 60; Glucose Random 116 mg/dL (60-115); HCG Quantitative 6218 mIU/mL; Sodium 137 mmol/L (135-145); Total Protein 7.6 g/dL (6.5-8.0)
[2023-09-04 12:02] VITALS: BP 101/63; PULSE 74; RESP 16; O2SAT 96
[2023-09-04] MEDS: Acetaminophen 325 MG TABLET 975 MG PO (12:02)
[2023-09-04] MEDS: Ondansetron ODT 4 MG TAB.RAPDIS TRANSLINGU (12:02)
--- NOTE | 2023-09-04 12:14 | PC.NURSE ---
pt returned from US at this time. a&ox4. vss and up to date aside from feeling slightly hypotensive. pt c/o 8/10 abd pain at this time. denies feeling dizzy/lightheaded. medication administered per provider order. effectiveness pending. pt aware UA is needed - cup placed bedside for convenience. pt waiting on ultrasound results at this time. no sob/wob noted. respirations even and unlabored. partner bedside for support. plan of care ongoing. call kraus placed within reach.
--- NOTE | 2023-09-04 12:46 | PC.NURSE ---
urine obtained/sent to lab by tech.
[2023-09-04 12:47] LABS: Appearance Urine Cloudy; Color Urine Dark Yellow; Glucose Urine UA Negative (Negative); Leukocyte Esterase Urine Trace (Negative); Nitrite Urine Negative (Negative); PH 6.5 (5.0-9.0); UMIC TRIGGER UACC YES; UPreg QC Valid YES; Urine Blood Large (3+) (Negative); Urine Ketones 15 mg/dL (Negative); Urine Pregnancy POSITIVE (NEGATIVE); Urine Protein 100 (2+) mg/dL (Neg-Trace)
[2023-09-04 12:55] LABS: Bacteria Urine 1+ (None Seen); Granular Casts Urine Present; RBC Urine >20 /HPF (0-2); WBC Urine 0-5 /HPF (0-5)
[2023-09-04 14:04] VITALS: BP 101/63; PULSE 74; RESP 16; TEMP 36.5; O2SAT 96
== END 2023-09-04 14:05 | disposition home or self-care (01) ==
PROVIDERS: Emergency Provider Student in an Organized Health Care Education/Training Program; PCP Internal Medicine
DX: O03.9 Complete or unspecified spontaneous abortion without complication (principal)
CPT/HCPCS: 36415; 76801; 76817; 80053; 81001; 81025; 84702; 85025; 86900; 86901; 99284

== ENCOUNTER 2023-09-05 10:32 | Day surgery (SDC) | payer OTHER, SELFPAY ==
[2023-09-05] VITALS (8 sets, daily range): BP systolic 101–120; BP diastolic 54–75; PULSE 71–98; RESP 16–22; TEMP 36.6–36.7; O2SAT 97–100; BMI 25.8
--- NOTE | 2023-09-05 10:45 | ED_ITS ---
HPI - Abdominal Pain General Chief Complaint: Vaginal Bleeding Stated Complaint: ABD PAIN Time Seen by Provider: 09/05/23 10:38 Source: patient, EMS and old records reviewed Mode of arrival: EMS Limitations: no limitations History of Present Illness HPI narrative: 43 yo who had a miscarriage yesterday at approximately 12 weeks presents back to the ER via EMS for evaluation of large volume vaginal bleeding with clots and pain that started this morning. She also developed nausea, vomiting and syncopized this morning when she was walking out of the house to come here. She reports passing large clots and having very heavy bleeding. She has new onset severe lower abdominal pain. She was seen here in the ER yesterday where U/S showed no IUP, complex echogenic fluid suggestive of blood products making retained products difficult to exclude. She had stopped bleeding yesterday and was discharged home. She reports minimal bleeding last night with no pain. This morning the bleeding started very heavy with tissue and clots. She feels sweaty, nauseated and is actively vomiting on arrival. MD elicited complaint: abdominal pain Pertinent past history: other (spontaneous yesterday) Onset (ago): hour(s) Pain Consistency: constant Location: pelvis Severity: severe Quality: cramping Migration to: no migration Exacerbating factors: nothing Relieving factors: nothing Context: other (miscarriage) Associated symptoms: nausea and vomiting Related Data Previous Rx's ?Medication ?Instructions ?Recorded miscellaneous medical supply #1 ea 09/25/20 (Blood Pressure Cuff) ferrous sulfate 325 mg (65 mg 325 mg PO BID #60 tabs 04/21/21 iron) tablet (FeroSul) acetaminophen 500 mg tablet 500 mg PO Q6H PRN pain or fever 07/30/21 (Tylenol Extra Strength) #20 tabs dicyclomine 20 mg tablet 20 mg PO QID PRN abdominal 09/17/22 discomfort #30 tabs albuterol sulfate 90 mcg/actuation 1 puff PO Q6-8H #18 grams 10/29/22 aerosol inhaler (Ventolin HFA) ibuprofen 800 mg tablet 800 mg PO Q8H PRN pain #14 tabs 10/29/22 ondansetron HCl 4 mg tablet 4 mg PO Q8H #7 tabs 10/29/22 vit no.95-ferrous 1 tab PO DAILY #30 tabs 04/06/23 fumarate 28 mg-folic acid 800 mcg tablet () Allergies Allergy/AdvReac Type Severity Reaction Status Date / Time No Known Allergies Allergy Mild NOT Verified 09/05/23 10:50 APPLICABLE Review of Systems Review of Systems Yes all other systems are reviewed and are negative [facility] Past Medical History Medical History Early stage of Abdominal pain, suprapubic Vaginal bleeding affecting early Gestational diabetes Depression Hx of Surgical History No history of previous surgery Family History Family History Father Diabetes mellitus Kidney disease Paternal Grandmother HTN (hypertension) Arthritis Phlebitis Mother HIV (human immunodeficiency virus infection) Social History Social History Housing: Apartment Alcohol intake: never Substance Use Type: Marijuana Advance Directives: No Advance Directives Information Provided: No Do you have a plan to hurt others: No Plan Current occupational status: unemployed Gender identity: Female Physical Exam ED Vital Signs: Vital Signs - 24 hr 09/05/23 10:37 09/05/23 11:32 Temperature 97.8 F Pulse Rate 71 81 Respiratory Rate 18 22 H Blood Pressure 101/61 103/75 Pulse Oximetry 99 97 Oxygen Delivery Method Room Air Room Air BMI result Body Mass Index 25.8 Appearance: Alert, restless, pale, vomiting Head: normocephalic, atraumatic. Eyes: Pupils equal, round and reactive to light. ENT: Pharynx normal. No tonsillar swelling or exudate. Neck: Normal inspection. Neck supple. CVS: Normal heart rate and rhythm. Pulses normal. Respiratory: No respiratory distress. Breath sounds normal. Abdomen: suprapubic tenderness and rigidity w/ guarding. normal active BS x4 Pelvic: vaginal canal with multiple large blood clots, cervical os with tissue and clots adhered that were removed, additional oozing of blood from the os with additional clots seen in the os itself, unable to reach with forceps Skin: Skin cool and clammy. Pale. Normal skin turgor. No rashes. Extremities: No lower extremity edema. No joint swelling. Neuro/psych: Oriented X 3. No motor deficit. No sensory deficit. CN II-XII intact. Normal speech and cognition. Medical Decision Making Medical Decision Making [facility] Narrative: 43-year-old female who had a miscarriage yesterday presents back to the ER with acute onset of heavy vaginal bleeding with clots and severe pain that started this morning. She arrives to the ER hypotensive, vomiting and pale. Dr. Almonte made aware of the patient on arrival. IV was established and IV fluids started, lab work reveals she is now acutely anemic with hemoglobin of 11.9 from 14 yesterday. This likely is falsely high given her active bleeding. Upon pelvic examination she had multiple clots in the vaginal vault with ongoing active bleeding from the cervical os, many clots were removed and tissue removed however inability to remove all of the clots. Dr. Blas attempted additional removal unsuccessfully. 11:45 - Dr. Almonte made aware of ongoing bleeding and inability to fully evacuate all of the clots and tissue. He is on his way into the emergency room to see the patient and arrange for OR evacuation, D&C. patient updated on plan of care. BP improved to 115 systolic w/ fluids. feeling better. RBC ordered to be held for the OR Differential Diagnosis Differential Diagnoses: The differential diagnosis associated with the presentation includes Retained products of conception, acute blood loss anemia, vaginal hemorrhage, sepsis due to retained products of conception Admission/Observation Consideration of admission/observation: Escalation of care including admission/observation considered Consult Healthcare Provider Management of the patient was discussed with: Cook Sauce Dr. Almonte Lab Data [facility] Lab Attestation statement: I reviewed the patient's lab results. Leukocytosis, new anemia 09/05/23 10:59 09/05/23 10:59 Labs: Lab Results 09/05/23 09/05/23 Range/Units 10:59 12:19 WBC 13.7 H (4.8-10.8) X10*3/uL RBC 3.96 L (4.20-5.50) X10*6/uL Hgb 11.9 L (12.0-16.0) g/dl Hct 34.1 L (37.0-47.0) % MCV 86.1 (80.0-98.0) fL MCH 30.1 (27.0-33.0) pg MCHC 34.9 (31.0-35.0) g/dl RDW 12.2 (11.0-16.0) % Plt Count 275 (160-400) X10*3/uL MPV 10.2 (9.4-12.3) fL Immature Gran % (Auto) 0.4 (0.0-0.4) % Neut % (Auto) 63.8 (45-73) % Lymph % (Auto) 26.4 (20-40) % Mercer % (Auto) 7.2 (2-11) % Eos % (Auto) 1.5 (0-4) % Baso % (Auto) 0.7 (0-2) % Lymph # (Auto) 3.6 (1.2-4.9) X10*3/uL Mercer # (Auto) 1.0 (0.1-1.2) X10*3/uL Eos # (Auto) 0.2 (0.0-0.4) X10*3/uL Baso # (Auto) 0.1 (0.0-0.2) X10*3/uL Abs Immat Gran (auto) 0.06 H (0.00-0.03) X10*3/uL Absolute Neuts (auto) 8.7 H (2.0-8.3) x10*3/uL Absolute Nucleated RBC 0.000 (0.0-0.012) X10*3/uL Nucleated RBC % (auto) 0.0 (0.0-0.2) /100WBC Crossmatch See Detail Independent Historian Clinical information obtained from an independent historian. History obtained from or confirmed by: Spouse External Record Review External record reviewed: Outpatient record, Prior outpatient labs and Prior outpatient radiology Prescription Management I considered prescription management with: Pain Medication and Antibiotic Medications Administered Discontinued Medications Generic Name Dose Route Start Last Admin Trade Name Freq PRN Reason Stop Dose Admin Sodium Chloride 1,000 mls @ 999 mls/hr 09/05/23 11:00 09/05/23 12:32 Ns IVCONT 09/05/23 12:00 Infused .Q1H1M RUBÉN Infusion Ondansetron HCl 4 mg 09/05/23 10:48 09/05/23 12:32 Ondansetron Hcl 4 Mg/2 Ml Vial IVPUSH 09/05/23 10:49 Not Given ONCE ONE Critical Care Time Critical Care Time Critical Care Time: Yes Total Critical Care Time: 48 Attestation: I have personally provided critical care time exclusive of time spent on separately billable procedures. Time includes review of lab data, radiology results, discussion with consultants, and monitoring for potential decompensation. Intervention performed as documented. Discharge Plan Discharge Clinical Impression: Vaginal bleeding, Acute blood loss anemia, Retained products of conception after miscarriage Patient Disposition: Admitted As Inpatient Print Language: Maori
[2023-09-05 11:03] LABS: MANUAL DIFF FLAG NO
[2023-09-05 11:04] LABS: Basophils Absolute Auto 0.1 X10*3/uL (0.0-0.2); Basophils Percent Auto 0.7 % (0-2); Eosinophils Absolute Auto 0.2 X10*3/uL (0.0-0.4); Eosinophils Percent Auto 1.5 % (0-4); Hematocrit 34.1 % (37.0-47.0); Hemoglobin 11.9 g/dl (12.0-16.0); Imm Gran Abs Auto 0.06 X10*3/uL (0.00-0.03); Imm Gran Pct Auto 0.4 % (0.0-0.4); Lymphocytes Absolute Auto 3.6 X10*3/uL (1.2-4.9); Lymphocytes Percent Auto 26.4 % (20-40); Mean Corpuscular HGB Conc 34.9 g/dl (31.0-35.0); Mean Corpuscular Hemoglobin 30.1 pg (27.0-33.0); Mean Corpuscular Volume 86.1 fL (80.0-98.0); Mean Platelet Volume 10.2 fL (9.4-12.3); Monocytes Percent Auto 7.2 % (2-11); Neutrophils Absolute Auto 8.7 x10*3/uL (2.0-8.3); Neutrophils Percent Auto 63.8 % (45-73); Platelet Count 275 X10*3/uL (160-400); Red Blood Count 3.96 X10*6/uL (4.20-5.50); Red Cell Distribution Width 12.2 % (11.0-16.0); White Blood Count 13.7 X10*3/uL (4.8-10.8)
[2023-09-05] MEDS: 0.9 % Sodium Chloride 1,000 ML 999 ML IVCONT (11:15)
--- NOTE | 2023-09-05 11:32 | PC.NURSE ---
iv established, fluids infusing. provider at bedside for pelvic exam. multiple blood clots removed using suction with approx 100mL blood removed.
--- NOTE | 2023-09-05 11:40 | P.CONOB_ITS ---
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 The endometrium is thickened to 2.8 cm and heterogeneous with complex echogenic fluid in the endometrial canal suggestive of blood products, making retained product of conception difficult to exclude. * A 4.4 cm right ovarian cyst with internal echoes and avascular material, recommend follow-up pelvic ultrasound in 6-12 weeks. H&H was 14/40.5, hCG was 8653, blood type O positive The patient bleeding and cramping slowed done patient was discharged home. The patient woke up this morning with heavy vaginal bleeding associated with pelvic cramping and passage of large blood clots. No fever or chills, no other concerns. Upon arrival to emergency room the patient's blood pressure 101/61, repeat H&H dropped down to 11.9/34.1. GC/CT BV panel and was collected by KIRBY Ahn cc:: CC: OB [facility] Past Medical History Medical History Early stage of Abdominal pain, suprapubic Vaginal bleeding affecting early Gestational diabetes Depression Hx of Family History Family History Father Diabetes mellitus Kidney disease Paternal Grandmother HTN (hypertension) Arthritis Phlebitis Mother HIV (human immunodeficiency virus infection) Surgical History Surgical History No history of previous surgery Social History Social History Housing: Apartment Alcohol intake: never Substance Use Type: Marijuana Current occupational status: unemployed Gender identity: Female Meds Allergies Allergy/AdvReac Type Severity Reaction Status Date / Time No Known Allergies Allergy Mild NOT Verified 09/05/23 10:50 APPLICABLE Active Medications: Current Medications Sodium Chloride (Ns) 1,000 mls @ 999 mls/hr IVCONT .Q1H1M RUBÉN Stop: 09/05/23 12:00 Last Admin: 09/05/23 11:15 Dose: 999 mls/hr DRUG ROOM CLERK Physical Exam Vitals Vital signs: Temp Pulse Resp BP Pulse Ox O2 Del Method 97.8 F 81 22 H 103/75 97 Room Air 09/05/23 10:37 09/05/23 11:32 09/05/23 11:32 09/05/23 11:32 09/05/23 11:32 09/05/23 11:32 BMI result Body Mass Index 25.8 Abdomen Auscultation/Inspection/Palpation: Normal bowel sounds and Non-distended Female Genitalia (Pelvic) Vagina: Nontender Adnexa/Parametria: Adnexal Tenderness: None, Adnexal Mass: None and Parametrial Tenderness: None Additional Comments: Cervix open, tissues in the endocervix, removed blood clots per vagina, active vaginal bleeding DRUG ROOM CLERK - Results Labs 09/05/23 10:59 09/05/23 10:59 Labs: Short CBC 09/05/23 Range/Units 10:59 WBC 13.7 H (4.8-10.8) X10*3/uL Hgb 11.9 L (12.0-16.0) g/dl Hct 34.1 L (37.0-47.0) % Plt Count 275 (160-400) X10*3/uL Assessment and Plan (1) Retained products of conception after miscarriage: Status: Acute 11:52 called the nursing supervisor brine to call the OR team and Anesthesia and I called Dr. You francois emergency case in the emergency room 11:57 a.m. I arrived the bedside of the patient, pelvic exam revealed large amount of blood clots small amount of tissue was coming out of the endocervix which were pulled out and sent to pathology, the patient has continued to actively bleeding. Discussed with the patient the clinical scenario she is presenting with, retained products of conception was active vaginal bleeding recommended, suction D&C, a more detailed discussion about the procedure was carried on with the patient including the technique, risks including but not limited to : bleeding, infection, uterine perforation, injury to blood vessels, bowels, ureters, bladder, possible need for blood transfusion with all its risks ( HIV, Hep b or C, anaphylaxis reactions), possible need for laparoscopy, laparotomy, or hysterectomy, possible , thromboembolic events, possibility of a negative impact on future fertility because of scar tissue development inside the uterus; alternatives of this option were discussed with the patient including but not limited to, medical termination of or doing nothing but both were not recommended given the active vaginal bleeding that the patient is having and her drop in her hematocrit. The patient decided to go ahead with Suction D&C and signed the consent. All questions answered, the patient verbalized understanding and agreed with the plan. Doxycycline 200 mg p.o. preop given to the patient. Ultrasound notified. Type and screen sent. Instructions given the patient to schedule a 2 week postoperative appointment. This note was generated with a voice recognition program. Some errors may have been overlooked during the review of this note. Sometimes these errors may affect the content or meaning of a given sentence. (2) Ovarian cyst: Status: Acute Discussed with the patient the finding on ultrasound yesterday a persistent right complex ovarian 4.4 cm, ultrasound done in 10/30 showed a right complex 5 cm ovarian cyst , the differential diagnosis discussed with patient including but not limited to benign, premalignant or malignant processes, recommended to the patient to schedule a follow-up appointment in the office discussed different options of treatment including laparoscopic ovarian cystectomy/oophorectomy. All questions answered, the patient verbalized understand
--- NOTE | 2023-09-05 12:18 | PC.NURSE ---
second IV in patient's right wrist. fluids continue to infuse. dr crowley obtained consent for surgery
--- NOTE | 2023-09-05 12:36 | P.CONAN_ITS ---
[facility] Active Problems Active Problems: i All Active Problems Ovarian cyst (Acute) Retained products of conception after miscarriage (Acute) Acute blood loss anemia (Acute) Vaginal bleeding (Acute) Early stage of (Acute) Unsatisfactory cervical Papanicolaou smear (Acute) Well woman exam (Acute) Abdominal pain, suprapubic (Acute) COVID-19 virus infection (Acute) Fracture of ankle, medial malleolus, right, closed (Acute) Abnormal uterine bleeding (AUB) (Acute) Complex ovarian cyst (Acute) Ectopic (Acute) SAB (spontaneous ) (Acute) Pelvic pain in female (Acute) Right elbow pain (Acute) Left elbow pain (Acute) SOB (shortness of breath) (Acute) Iron deficiency anemia (Acute) Screening for hypothyroidism (Acute) Screening for hypercholesterolemia (Acute) Screening for diabetes mellitus (DM) (Acute) HTN (hypertension) (Acute) Annual physical exam (Acute) Psychological stress (Acute) Hx of pyelonephritis (Acute) Breakthrough bleeding on Depo-Provera (Acute) Encounter for control (Acute) Past Medical History Medical History Early stage of Abdominal pain, suprapubic Vaginal bleeding affecting early Gestational diabetes Depression Hx of Functional capacity: independent ambulation Patient : Yes Family History Family History Father Diabetes mellitus Kidney disease Paternal Grandmother HTN (hypertension) Arthritis Phlebitis Mother HIV (human immunodeficiency virus infection) Family history of problems with anesthesia: No Surgical History Surgical History No history of previous surgery History of Problems with Anesthesia: No Social History Social History Housing: Apartment Alcohol intake: never Substance Use Type: Marijuana Current occupational status: unemployed Gender identity: Female Meds Allergies Allergy/AdvReac Type Severity Reaction Status Date / Time No Known Allergies Allergy Mild NOT Verified 09/05/23 10:50 APPLICABLE Active Medications: Current Medications Sodium Chloride (Ns) 100 mls @ 100 mls/hr IV ONCE ONE Stop: 09/05/23 12:40 Exam Height,Weight and Vital Signs: Height 5 ft 9 in Weight 79.379 kg Last Vital Signs Temp 97.8 F 09/05/23 10:37 Pulse 81 09/05/23 11:32 Resp 22 H 09/05/23 11:32 BP 103/75 09/05/23 11:32 Pulse Ox 97 09/05/23 11:32 O2 Del Method Room Air 09/05/23 11:32 Pertinent Lab Results Pertinent Lab Results: Laboratory Tests 09/05/23 09/05/23 10:59 12:19 WBC 13.7 H RBC 3.96 L Hgb 11.9 L Hct 34.1 L MCV 86.1 MCH 30.1 MCHC 34.9 RDW 12.2 Plt Count 275 MPV 10.2 Immature Gran % (Auto) 0.4 Neut % (Auto) 63.8 Lymph % (Auto) 26.4 [place] % (Auto) 7.2 Eos % (Auto) 1.5 Baso % (Auto) 0.7 Lymph # (Auto) 3.6 [place] # (Auto) 1.0 Eos # (Auto) 0.2 Baso # (Auto) 0.1 Abs Immat Gran (auto) 0.06 H Absolute Neuts (auto) 8.7 H Absolute Nucleated RBC 0.000 Nucleated RBC % (auto) 0.0 Crossmatch See Detail Airway Mallampati Class: I TM Dist: >3cm Neck ROM: Full Heart: RRR Lungs: CTA Assessment and Plan Assessment Anesthesia Assessment: Anesthesia Plan Discussed Final Anesthetic Review Family History of Problems with Anesthesia: No History of Problems with Anesthesia: No NPO: No ASA Class: II and Emergency Final Preanesthetic Review: Meds/Allgs Chart Reviewed, Consent Obtained/Reviewed and Anes Risks/Benef Reviewed Anesthetic Plan Anesthetic Plan: GA Disposition: Standard PACU
[2023-09-05] MEDS: Doxycycline Monohydrate 100 MG CAPSULE 200 MG PO (12:41)
[2023-09-05 12:47] LABS: Alanine Aminotransferase 10 U/L (0-31); Albumin Level 3.6 g/dL (3.5-5.0); Alkaline Phosphatase 60 U/L (39-117); Anion Gap 13 (12-20); Aspartate Amino Transferase 11 U/L (5-31); Bilirubin Direct 0.1 mg/dL (0.0-0.5); Bilirubin Total 0.4 mg/dL (0.0-1.0); Blood Urea Nitrogen 11 mg/dL (9-16); Calcium 8.4 mg/dL (8.4-10.2); Carbon Dioxide 18 mmol/L (22-29); Chloride 109 mmol/L (96-108); Creatinine Clr Calc Pharmacy 108.3; Estimated Glomerular Filt Rate > 60; Glucose Random 134 mg/dL (60-115); HCG Quantitative 2946 mIU/mL; Potassium 3.8 mmol/L (3.3-5.1); Sodium 136 mmol/L (135-145); Total Protein 6.2 g/dL (6.5-8.0)
--- NOTE | 2023-09-05 13:00 | PC.NURSE ---
products of conception obtained and brought to pathology.
--- NOTE | 2023-09-05 13:51 | PM.OP ---
Brief Operative Note Date of Service: 09/05/23 Pre-op diagnosis: Complete /retained products of conception Post-op diagnosis: same Procedure: Suction D&C with ultrasound guidance Surgeon: Logan Almonte MD Anesthesia: GETA Was an Trick Rodeo Rider used for this Procedure?: No Estimated blood loss (mL): 100 Pathology: other (Products of conception) Condition: stable Disposition: PACU
--- NOTE | 2023-09-05 13:52 | P.OP_ITS ---
Operative Note Operative Note Date of Service: 09/05/23 Narrative: Preop diagnosis: Incomplete /retained products of conception Operation: suction D and C under ultrasound guidance Postop diagnosis: The same EBL: 100 cc Anesthesia: [employer] Viewer: None Pathology: Products of conception Procedure: The patient was put in a dorsal distal mid position was scrubbed and draped in the usual sterile fashion. A sterile speculum was inserted inside the patient's vagina the anterior lip of the cervix was grasped with single-tooth tenaculum the cervix was dilated up to 7 mm. Under ultrasonographic guidance flexible 7. Suction tip was introduced inside the patient ran cavity till the fundus was hit then turning the suction 360 degrees around products of conception was sucked out toward the uterine cavity. The suction tip was taken out of the patient uterine cavity sharp curettings was followed in 4 quadrants of the uterus till a gritty feeling was felt. The suction tip was reintroduced under ultrasonographic guidance and intrauterine blood was sucked. The suction tip was taken out. Single-tooth tenaculum was removed hemostasis assured using pressure. The patient tolerated the procedure well and was transferred to the PACU in a stable condition.
[2023-09-05 13:59] LABS: CT PCR NOT DETECTED (Not Detect.); NG PCR NOT DETECTED (Not Detect.)
--- NOTE | 2023-09-05 14:12 | P.CONAN_ITS ---
[facility] Active Problems Active Problems: All Active Problems (Updated 09/05/23 @ 12:28 by Logan Almonte MD) Ovarian cyst (Acute) Retained products of conception after miscarriage (Acute) Acute blood loss anemia (Acute) Vaginal bleeding (Acute) Early stage of (Acute) Unsatisfactory cervical Papanicolaou smear (Acute) Well woman exam (Acute) Abdominal pain, suprapubic (Acute) COVID-19 virus infection (Acute) Fracture of ankle, medial malleolus, right, closed (Acute) Abnormal uterine bleeding (AUB) (Acute) Complex ovarian cyst (Acute) Ectopic (Acute) SAB (spontaneous ) (Acute) Pelvic pain in female (Acute) Right elbow pain (Acute) Left elbow pain (Acute) SOB (shortness of breath) (Acute) Iron deficiency anemia (Acute) Screening for hypothyroidism (Acute) Screening for hypercholesterolemia (Acute) Screening for diabetes mellitus (DM) (Acute) HTN (hypertension) (Acute) Annual physical exam (Acute) Psychological stress (Acute) Hx of pyelonephritis (Acute) Breakthrough bleeding on Depo-Provera (Acute) Encounter for control (Acute) Past Medical History Medical History Early stage of Abdominal pain, suprapubic Vaginal bleeding affecting early Gestational diabetes Depression Hx of Functional capacity: uses cane/walker Family History Family History Father Diabetes mellitus Kidney disease Paternal Grandmother HTN (hypertension) Arthritis Phlebitis Mother HIV (human immunodeficiency virus infection) Family history of problems with anesthesia: No Surgical History Surgical History No history of previous surgery History of Problems with Anesthesia: No Social History Social History Housing: Apartment Alcohol intake: never Patient Tobacco Use Status: Never used Tobacco Substance Use Type: Marijuana Current occupational status: unemployed Gender identity: Female Meds Allergies Allergy/AdvReac Type Severity Reaction Status Date / Time No Known Allergies Allergy Mild NOT Verified 09/05/23 10:50 APPLICABLE Exam Height,Weight and Vital Signs: Height 5 ft 9 in Weight 79.379 kg Last Vital Signs Temp 98.0 F 09/05/23 14:06 Pulse 91 09/05/23 14:11 Resp 16 09/05/23 14:11 BP 110/57 L 09/05/23 14:11 Pulse Ox 100 09/05/23 14:11 O2 Del Method Room Air 09/05/23 14:11 Pertinent Lab Results Pertinent Lab Results: Laboratory Tests 09/05/23 09/05/23 09/05/23 10:59 11:42 12:19 WBC 13.7 H RBC 3.96 L Hgb 11.9 L Hct 34.1 L MCV 86.1 MCH 30.1 MCHC 34.9 RDW 12.2 Plt Count 275 MPV 10.2 Immature Gran % (Auto) 0.4 Neut % (Auto) 63.8 Lymph % (Auto) 26.4 [place] % (Auto) 7.2 Eos % (Auto) 1.5 Baso % (Auto) 0.7 Lymph # (Auto) 3.6 [place] # (Auto) 1.0 Eos # (Auto) 0.2 Baso # (Auto) 0.1 Abs Immat Gran (auto) 0.06 H Absolute Neuts (auto) 8.7 H Absolute Nucleated RBC 0.000 Nucleated RBC % (auto) 0.0 Sodium 136 Potassium 3.8 Chloride 109 H Carbon Dioxide 18 L Anion Gap 13 BUN 11 Creatinine 0.70 Estim Creat Clear Calc 108.3 Estimated GFR > 60 Random Glucose 134 H Calcium 8.4 D Magnesium 2.0 Total Bilirubin 0.4 Direct Bilirubin 0.1 AST 11 ALT 10 Alkaline Phosphatase 60 Total Protein 6.2 L Albumin 3.6 Beta HCG, Quant 2946 Chlam trachomat DNA PCR NOT DETECTED N.gonorrhoeae DNA (PCR) NOT DETECTED Blood Type O Positive Antibody Screen NEGATIVE Crossmatch See Detail Airway Heart: RRR Lungs: CTA Assessment and Plan Final Anesthetic Review Family History of Problems with Anesthesia: No History of Problems with Anesthesia: No ASA Class: II and Emergency Final Preanesthetic Review: Meds/Allgs Chart Reviewed, Consent Obtained/Reviewed and Anes Risks/Benef Reviewed Patient Risk: Intermediate Procedure Risk: Low Anesthetic Plan Anesthetic Plan: GA Disposition: Standard PACU
[2023-09-05] MEDS: Acetaminophen 1,000 MG/100 ML PIGGYBACK 400 MG IV (14:16)
[2023-09-06 12:52] LABS: BV Int Neg Control Negative (Negative); BV Int Pos Control Positive (Positive)
== END 2023-09-05 14:50 | disposition home or self-care (01) ==
LOC: HO.ED 11:54 → HO.SSS 13:00
PROVIDERS: Physician Assistant; Emergency Provider Student in an Organized Health Care Education/Training Program; PCP Internal Medicine; Visit Provider Obstetrics & Gynecology
PROC: (CPT 59812; principal; 2023-09-05 13:00)
DX: O03.1 Delayed or excessive hemorrhage following incomplete spontaneous abortion (principal); O21.9 Vomiting of pregnancy, unspecified; O99.011 Anemia complicating pregnancy, first trimester; D62 Acute posthemorrhagic anemia; O09.521 Supervision of elderly multigravida, first trimester; O34.81 Maternal care for other abnormalities of pelvic organs, first trimester; N83.291 Other ovarian cyst, right side; Z3A.12 12 weeks gestation of pregnancy
CPT/HCPCS: 59812; 0353U; 36415; 76998; 80048; 80076; 83735; 84702; 85025; 86850; 86900; 86901; 86923; 87480; 87510; 87660; 88305; 96360; 99284; 99285; J0131; J1100; J2250; J2405; J2590; J2704; J3010

== ENCOUNTER → 2023-09-05 12:34 | Outpatient (BNV) | payer OTHER, SELFPAY | PROVIDERS: Emergency Provider Student in an Organized Health Care Education/Training Program; PCP Internal Medicine; Visit Provider Obstetrics & Gynecology | DX: O03.4 Incomplete spontaneous abortion without complication (principal); N83.209 Unspecified ovarian cyst, unspecified side | CPT/HCPCS: 59812; 99283 ==

== ENCOUNTER 2023-09-23 10:08 | Outpatient (REF) | payer OTHER, SELFPAY ==
[2023-09-23 11:42] LABS: HCG Quantitative 12 mIU/mL
[2023-09-24 10:34] LABS: CA-125 28 U/mL (<35); Carbohydrate Antigen 19-9 <3 U/mL (<34)
== END 2023-09-23 10:09 | disposition home or self-care (01) ==
LOC: HO.LAB 10:08
PROVIDERS: PCP Internal Medicine; Visit Provider Obstetrics & Gynecology
DX: O03.4 Incomplete spontaneous abortion without complication (principal); N83.299 Other ovarian cyst, unspecified side; Z30.09 Encounter for other general counseling and advice on contraception
CPT/HCPCS: 36415; 82378; 84702; 86301; 86304; 99212

== ENCOUNTER 2023-09-23 10:10 | Outpatient (AMB) | payer OTHER, SELFPAY ==
--- NOTE | 2023-09-23 10:10 | A.OFFVIS_ITS ---
Vital Signs 09/23/23 10:11 Height 5 ft 9 in Weight 171 lb BMI 25.2 BP 120/82 Intake Visit Reasons: post op/ ovarian cyst Temporary Administrative Assistant Required: No Information Interpreted: non-clinical & clinical Accompanied by: Spouse Allergies No Known Allergies Allergy (Mild, Verified 09/23/23 10:12) NOT APPLICABLE HPI Comments Details: Presenting post suction D&C for retained products of conception, doing well with no complaints. The pathology showed the following: A. Retained products of conception, curettage: -Fragments of decidua with necrosis, inflammation, and organizing blood clot. B. Retained products of conception, curettage: -Membranes and immature chorionic villi, focally degenerated, with nucleated red blood cells identified in vessels. -Fragments of decidua with necrosis and acute inflammation. -Focal inactive endometrium HCG quantitative not done yet Pelvic ultrasound done in 09/04/2023 showed the following: IMPRESSION: * The previously seen intrauterine gestational sac and pole are no longer identified compatible with loss. The endometrium is thickened to 2.8 cm and heterogeneous with complex echogenic fluid in the endometrial canal suggestive of blood products, making retained product of conception difficult to exclude. * A 4.4 cm right ovarian cyst with internal echoes and avascular material, recommend follow-up pelvic ultrasound in 6-12 weeks [facility] Medical History Early stage of Abdominal pain, suprapubic Vaginal bleeding affecting early Gestational diabetes Depression Hx of Surgical History No history of previous surgery Family History Father Diabetes mellitus Kidney disease Paternal Grandmother HTN (hypertension) Arthritis Phlebitis Mother HIV (human immunodeficiency virus infection) Social History Housing: Apartment Alcohol intake: never Patient Tobacco Use Status: Never used Tobacco Substance Use Type: Marijuana Current occupational status: unemployed Gender identity: Female Female Reproductive History Menstrual Age of Menarche: 13 Physical Exam Vital Signs: Last Vital Signs BP 120/82 09/23/23 10:11 BMI result Body Mass Index 25.2 Assessment & Plan Assessment & Plan (1) Retained products of conception after miscarriage: Comment: Status post suction D&C Code(s): O03.4 - Incomplete spontaneous without complication Category: Medical Plan: Discussed with the patient the results the pathology, showing retained products of conception. Instructed the patient to have hCG done today and repeat hCG in a week (both orders placed) will follow it down to non level. Explained to the patient the importance of hCG follow-up and to follow hCG down to non levels. Instructions given the patient to schedule 1 week hCG follow-up appointment. All questions answered, the patient verbalized understanding (2) Complex ovarian cyst: Comment: Since 10/30 Code(s): N83.299 - Other ovarian cyst, unspecified side Category: Medical Plan: Discussed with the patient the persistent complex ovarian cyst by Ultrasound. The differential diagnosis discussed with the patient includes the following but not limited to: benign and malignant gynecological and non-gynecological. Discussed with the patient that per ACOG guidelines, when a patient with a suspicious or persistent complex adnexal mass requires surgical evaluation, a physician trained to appropriately stage and debulk ovarian cancer should perform the operation. Surgical exploration should be performed in a hospital facility that has the necessary support and consultative services to optimize the patient?s outcome. When a malignant ovarian tumor is discovered incidentally, a gynecologic oncologist should be consulted intraoperatively. Recommended CA 125 , CA 19-9, CEA and laparoscopic ovarian cystectomy/possible oophorectomy. Informed the patient that there is no gynecologic oncologist available on staff at [facility] , therefore the patient will be referred to an OBGYN practice at tertiary care center of her choice where during surgery there is immediate access to a gynecologic oncologist intraoperatively in case there was any suspicion or evidence of malignancy. Will refer to OBGYN at [facility]. Asked the patient to call back in case she cannot get in for an appointment at [facility] soon to schedule the procedure at [facility]. The patient verbalized understanding and agreed with the plan. (3) Family planning: Code(s): Z30.09 - Encounter for other general counseling and advice on contraception Category: Social Hx Plan: Discussed with the patient the different options of control including control pills/Nuvaring, Depo Medroxy Progesterone Acetate, IUD ( levonorgestrel, [place]), sterilization. All the pros, cons, risks and benefits of each were discussed with the patient. The patient decided to think about it and get back to us, meanwhile Instructions were given to use a back- up method for contraception. Orders: Orders HCG Quantitative Today O03.4 - Incomplete spontaneous without complication Carbohydrate Antigen 19-9 Today N83.299 - Other ovarian cyst, unspecified side CA-125 Today N83.299 - Other ovarian cyst, unspecified side Carcinoembryonic Antigen Today N83.299 - Other ovarian cyst, unspecified side Coding Level of Care Code Est Pt Level 3 (97754) Diagnoses Retained products of conception after miscarriage O03.4 Complex ovarian cyst N83.299 Family planning Z30.09
[2023-09-23 10:11] VITALS: BP 120/82; BMI 25.2
== END 2023-09-23 11:29 | disposition home or self-care (01) ==
PROVIDERS: PCP Internal Medicine; Visit Provider Obstetrics & Gynecology
DX: O03.4 Incomplete spontaneous abortion without complication (principal); N83.299 Other ovarian cyst, unspecified side; Z30.09 Encounter for other general counseling and advice on contraception
CPT/HCPCS: 99024

== ENCOUNTER 2023-09-29 09:10 | Outpatient (REF) | payer OTHER, SELFPAY ==
[2023-09-29 09:53] LABS: HCG Quantitative 6 mIU/mL
== END 2023-09-29 09:11 | disposition home or self-care (01) ==
LOC: HO.LAB 09:10
PROVIDERS: PCP Internal Medicine; Visit Provider Obstetrics & Gynecology
DX: O03.4 Incomplete spontaneous abortion without complication (principal)
CPT/HCPCS: 36415; 84702

== ENCOUNTER 2023-09-29 14:03 | Outpatient (AMB) | payer OTHER, SELFPAY ==
--- NOTE | 2023-09-29 14:03 | MHC.OFFVIS ---
Intake Visit Reasons: HCG follow up Assistant Teacher Primary Required: No Information Interpreted: non-clinical & clinical Allergies No Known Allergies Allergy (Mild, Verified 09/29/23 14:03) NOT APPLICABLE HPI Comments Details: The patient is scheduled tele health visit for hCG follow-up post suction D&C done on 09/04/23. The patient is doing well with no complaints 09/02 hCG level was 2946 09/22 hCG dropped down to 12 09/28 hCG =6 PFSH Medical History Early stage of Abdominal pain, suprapubic Vaginal bleeding affecting early Gestational diabetes Depression Hx of Surgical History No history of previous surgery Family History Father Diabetes mellitus Kidney disease Paternal Grandmother HTN (hypertension) Arthritis Phlebitis Mother HIV (human immunodeficiency virus infection) Social History Housing: Apartment Alcohol intake: never Patient Tobacco Use Status: Never used Tobacco Substance Use Type: Marijuana Current occupational status: unemployed Gender identity: Female Female Reproductive History Menstrual Age of Menarche: 13 Review of Systems Const All systems reviewed & are unremarkable except as noted in HPI and below Reports as per HPI and Reports no additional complaints GI Reports no additional complaints Reports no additional complaints Telehealth Telehealth Telehealth Platform: Telephone Location of provider rendering services: practice address Location of patient: address on file Patient Identification confirmed using: Name, : Yes Telehealth method: voice only Patient verbally consented to treatment: Yes Patient verbally consented to billing insurance company: Yes Patient informed of any privacy concerns related to visit: Yes Assessment & Plan Assessment & Plan (1) Retained products of conception after miscarriage: Comment: Status post suction D&C Code(s): O03.4 - Incomplete spontaneous without complication Category: Medical Plan: Repeat hCG quantitative in 1-2 week (order placed) will follow it down to non level. Explained to the patient the importance of hCG follow-up and to follow hCG down to non levels. Instructions given the patient to schedule a follow-up appointment within 2 weeks and to call in case of vaginal bleeding pelvic pain fever above 100.4. All questions answered, the patient verbalized understanding. I spent a total of 20 minutes reviewing the chart, talking to the patient via phone and documenting in the medical record. Orders: Orders HCG Quantitative 1 Week O03.4 - Incomplete spontaneous without complication Coding Level of Care Code Tele Est Pt Level 1 (43430) Diagnoses Retained products of conception after miscarriage O03.4
== END 2023-09-29 16:11 | disposition home or self-care (01) ==
LOC: HO.HWS 14:03
PROVIDERS: PCP Internal Medicine; Visit Provider Obstetrics & Gynecology
DX: O03.4 Incomplete spontaneous abortion without complication (principal)
CPT/HCPCS: 99211

== ENCOUNTER 2023-10-14 10:26 | Outpatient (REF) | payer OTHER, SELFPAY ==
[2023-10-14 11:05] LABS: HCG Quantitative < 2 mIU/mL
== END 2023-10-14 10:27 | disposition home or self-care (01) ==
LOC: HO.LAB 10:26
PROVIDERS: PCP Internal Medicine; Visit Provider Obstetrics & Gynecology
DX: O03.4 Incomplete spontaneous abortion without complication (principal)
CPT/HCPCS: 36415; 84702

== ENCOUNTER 2023-10-14 14:31 | Outpatient (AMB) | payer OTHER, SELFPAY ==
--- NOTE | 2023-10-14 14:34 | MHC.OFFVIS ---
Intake Visit Reasons: HCG follow up Allergies No Known Allergies Allergy (Mild, Verified 09/29/23 14:03) NOT APPLICABLE HPI Comments Details: The patient is scheduled tele health visit for hCG follow-up post suction D&C done on 09/04/23. The patient is doing well with no complaints 09/02 hCG level was 2946 09/22 hCG dropped down to 12 09/28 hCG =6 6/6 hCG less than 2 PFSH Medical History Early stage of Abdominal pain, suprapubic Vaginal bleeding affecting early Gestational diabetes Depression Hx of Surgical History No history of previous surgery Family History Father Diabetes mellitus Kidney disease Paternal Grandmother HTN (hypertension) Arthritis Phlebitis Mother HIV (human immunodeficiency virus infection) Social History Housing: Apartment Alcohol intake: never Patient Tobacco Use Status: Never used Tobacco Substance Use Type: Marijuana Current occupational status: unemployed Gender identity: Female Female Reproductive History Menstrual Age of Menarche: 13 Review of Systems Const All systems reviewed & are unremarkable except as noted in HPI and below Reports as per HPI and Reports no additional complaints GI Reports no additional complaints Reports no additional complaints Telehealth Telehealth Telehealth Platform: Telephone Location of provider rendering services: practice address Location of patient: address on file Patient Identification confirmed using: Name, : Yes Telehealth method: voice only Patient verbally consented to treatment: Yes Patient verbally consented to billing insurance company: Yes Patient informed of any privacy concerns related to visit: Yes Assessment & Plan Assessment & Plan (1) Retained products of conception after miscarriage: Comment: Status post suction D&C Code(s): O03.4 - Incomplete spontaneous without complication Category: Medical Plan: Discussed with the patient the results of hCG being less than 2, the patient was reassured. Discussed with the patient the different options of control including control pills/Nuvaring, Depo Medroxy Progesterone Acetate, IUD ( levonorgestrel, Copper), sterilization. All the pros, cons, risks and benefits of each were discussed with the patient. The patient decided to think about it and get back to us, meanwhile Instructions were given to use a back- up method for contraception. I spent a total of 20 minutes reviewing the chart, talking to the patient via phone and documenting in the medical record. Coding Level of Care Code Tele Est Pt Level 1 (62397) Diagnoses Retained products of conception after miscarriage O03.4
== END 2023-10-14 15:47 | disposition home or self-care (01) ==
LOC: HO.HWS 14:31
PROVIDERS: PCP Internal Medicine; Visit Provider Obstetrics & Gynecology
DX: O03.4 Incomplete spontaneous abortion without complication (principal)
CPT/HCPCS: 99211

== ENCOUNTER 2023-11-26 14:38 | Outpatient (AMB) | payer OTHER, SELFPAY ==
[2023-11-26 14:40] VITALS: BP 142/90; PULSE 73; O2SAT 98; BMI 24.1
--- NOTE | 2023-11-26 14:40 | A.OFFPC_ITS ---
Vital Signs 11/26/23 14:40 Height 5 ft 9 in Weight 163 lb 0.4 oz BMI 24.1 BP 142/90 H Blood Pressure Location Lt brachial Position Sitting Pulse 73 Pulse Source Pulse Oximeter Pulse Oximetry (%) 98 Oxygen Delivery Method Room Air Intake Visit Reasons: PE Intake Note: Patient is here today for a physical. 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 Allergies No Known Allergies Allergy (Mild, Verified 11/26/23 14:40) NOT APPLICABLE Medication List - Last Reconciled 11/26/23 by Deandra Augustine MD albuterol sulfate 90 mcg/actuation (Ventolin HFA) 1 puff PO Q6-8H ferrous sulfate (FeroSul) 325 mg PO BID miscellaneous medical supply (Blood Pressure Cuff) As directed ondansetron HCl 4 mg PO Q8H PNV cmb#95-ferrous fumarate-FA 28 mg iron- 800 mcg () 1 tab PO DAILY sertraline 25 mg PO DAILY Tobacco use date assessed: 11/26/23 Dental Screening Dental Screen Date: 11/26/23 Did you have a dental visit in the last 12 months?: No Did you have a dental problem in the last 6 months where you did not have access to dental care?: No HPI PE HPI Details 43-year-old female with hypertension iro n deficiency anemia situational depression coming in for physical exam last seen in October 2022. Pap smear last done in 06/2023 . Patient is due for mammogram. Review of the notes ER visit in August 2023 had vaginal bleeding miscarriage. nausea and vomiting, dizzy,, inhaler useonce a week, no chest pain, has palpitations, PFSH Medical History (Updated 11/26/23 @ 15:21 by Deandra Augustine MD) Encounter for control Psychological stress Abdominal pain, suprapubic Family planning Retained products of conception after miscarriage Acute blood loss anemia Unsatisfactory cervical Papanicolaou smear COVID-19 virus infection Complex ovarian cyst Ectopic Screening for diabetes mellitus (DM) Vaginal bleeding affecting early Gestational diabetes Depression Hx of Surgical History No history of previous surgery Family History Father Diabetes mellitus Kidney disease Paternal Grandmother HTN (hypertension) Arthritis Phlebitis Mother HIV (human immunodeficiency virus infection) Social History (Updated 11/26/23 @ 15:11 by Deandra Augustine MD) Housing: Apartment Alcohol intake: current Alcohol intake frequency: holidays/special occasions only Comment: once a week 3 at a time Patient Tobacco Use Status: Current everyday Tobacco user Years Smoked: once a week does marijuana Substance Use Type: Marijuana Current occupational status: unemployed Gender identity: Female Cognitive needs: No Hearing needs: No Vision needs: No Female Reproductive History Menstrual Age of Menarche: 13 Questionnaire PHQ-9 Over the last 2 weeks, how often have you been bothered by any of the following problems? 1. Little interest or pleasure in doing things: not at all 2. Feeling down, depressed, or hopeless: not at all 3. Trouble falling or staying asleep, or sleeping too much: not at all 4. Feeling tired or having little energy: not at all 5. Poor appetite or overeating: not at all 6. Feeling bad about yourself - or that you are a failure or have let yourself or your family down: not at all 7. Trouble concentrating on things, such as reading the newspaper or watching television: not at all 8. Moving or speaking so slowly that other people could have noticed. Or the opposite - being so fidgety or restless that you have been moving around a lot more than usual: not at all 9. Thoughts that you would be better off or of hurting yourself in some way: not at all Total score: 0 Depression Screening Interpretation: Negative Depression Screening Done: Yes 98340 - PHQ-9 Billing: Yes Source: Developed by Drs. Lio Ruff, Mary Iniguez, Sina Casillas and colleagues, with an educational jesus from [employer]. Thrive Questionnaire Date Thrive assessed: 11/26/23 I am a: Patient What is your living situation today?: I have a steady place to live Within the past 12 months, did the food you bought not last and you didn't have the money to get more?: Never true Within the past 12 months, did you worry whether your food would run out before you got money to buy more?: Never true Do you have trouble paying for medicines?: No Do you have trouble getting transportation to medical appointments?: No Do you have trouble paying your heating and electricity bill?: No Do you have trouble taking care of your child, family member or friend?: No Do you have trouble with day-to-day activities such as bathing, preparing meals, shopping, managing finances, etc.?: No Are you currently unemployed and looking for a job?: No Are you interested in more education?: No Please select the resources that you would like help with: None Currently or been in a relationship where the following occur: No concerns reported THRIVE Score: 0 AUDIT C Alcohol Use Questionnaire (AUDIT-C) 1. How often do you have a drink containing alcohol?: Never 3. How often do you have six or more drinks on one occasion?: Never Total Score: 0 HAYDE-7 AMB Questionnaire HAYDE-7 Date HAYDE - 7 assessed: 11/26/23 Feeling nervous, anxious, or on edge: 0 = Not at all Not being able to stop or control worryin = Not at all Worrying too much about different things: 0 = Not at all Trouble relaxin = Not at all Being so restless that it is hard to sit still: 0 = Not at all Becoming easily annoyed or irritable: 0 = Not at all Feeling afraid as if something awful might happen: 0 = Not at all Total HAYDE-7 score (0-4 normal; 5-9 mild; 10-14 moderate; 15-21 severe): 0 Source: Developed by Drs. Lio Ruff, Mary Iniguez, Sina Casillas and colleagues, with an educational jesus from [employer]. HAYDE-7 Assessment Billing HAYDE-7 Assessment Tool: HAYDE-7 Assessment 95372 Review of Systems Const Denies poor appetite and Denies weakness Eyes Denies no additional complaints ENT Reports Normal hearing present, Denies dizziness, Denies nasal congestion, Denies tinnitus and Denies sore throat Card Denies chest pain, Denies syncope, Denies rapid heart rate and Denies dyspnea Resp Denies cough and Denies dyspnea GI Denies change in stool character, Reports constipation, Denies diarrhea, Denies nausea and Denies vomiting Denies urinary frequency, Denies difficulty voiding and Denies dysuria Neuro Reports Normal hearing present, Denies confusion, Denies dizziness, Denies syncope and Denies weakness Psych Denies confusion Physical exam (Primary Care) Vital Signs: Last Vital Signs Pulse 73 11/26/23 14:40 BP 142/90 H 11/26/23 14:40 Pulse Ox 98 11/26/23 14:40 Oxygen Delivery Method Room Air 11/26/23 14:40 BMI result Body Mass Index 24.1 Tobacco/Smoking Status: Tobacco use Status Tobacco use date assessed 11/26/23 11/26/23 14:41 Patient Tobacco Use Status Never used Tobacco 11/26/23 14:41 PHQ-9: PHQ-9 Score PHQ-9: Total score 0 11/26/23 14:41 Depression Screening Interpretation: Negative Thrive Assessment: Date of Thrive Assessment Date Thrive assessed 11/26/23 11/26/23 14:41 Currently or been in a relationship where the following occur: No concerns reported Const General: No confusion Orientation/consciousness: No confusion HENMT Head: Yes normocephalic Ears: external ears normal and TM's normal bilaterally Face and sinus: Yes normal facial exam Mouth: moist mucous membranes Throat: Yes tonsils normal Eyes Conjunctivae: conjunctivae normal Pupils: Equal, round and reactive pupils present and Pupil accommodation reflex normal Direct Ophthalmoscopy: normal light reflex Neck Neck: No lymphadenopathy Thyroid: Thyroid normal Chest Chest palpation & inspection: normal inspection of the chest Resp Effort & Inspection: normal respiratory effort and no audible wheezes Auscultation: clear to auscultation bilaterally, no crackles, no wheezes and lung sounds not diminished Cardio Rate: regular rate Rhythm: regular rhythm Peripheral pulses: radial pulses present and dorsalis pedis present GI Palpation (GI): no masses Auscultation: normal bowel sounds and normoactive bowel sounds Rectal Exam - Female: deferred Skin General skin exam: no rashes or lesions noted Rashes: no rashes Neuro General: No confusion Cranial nerves: Yes Equal, round and reactive pupils present and Yes Normal hearing present Cognition (Neuro): normal cognition Gait exam (Neuro): Normal gait present Motor exam (neuro): 5/5 motor strength present throughout Deep tendon reflexes (DTR's): Right brachioradialis reflex intensity grade: 2+, Left brachioradialis reflex intensity grade: 2+, Right patellar reflex intensity grade: 2+ and Left patellar reflex intensity grade: 2+ Extrem General: No edema Assessment and Plan Assessment & Plan (1) Annual physical exam: Code(s): Z00.00 - Encounter for general adult medical examination without abnormal findings Plan: Patient is advised to eat healthy, keep well hydrated, keep active and have adequate sleep. (2) HTN (hypertension): Code(s): I10 - Essential (primary) hypertension Qualifiers: Hypertension type: essential hypertension Qualified Code(s): I10 - Essential (primary) hypertension Plan: Continue with blood pressure medication. Decrease salt intake and exercise (3) SAB (spontaneous ): Code(s): O03.9 - Complete or unspecified spontaneous without complication Plan: Continue to follow-up with OB Gynecology (4) Situational depression: Code(s): F43.21 - Adjustment disorder with depressed mood Plan: Continue with present medication (5) Dizziness: Code(s): R42 - Dizziness and giddiness Plan: will work up (6) Vision changes: Code(s): H53.9 - Unspecified visual disturbance Orders: Orders Complete Blood Count Auto Diff Today D50.9 - Iron deficiency anemia, unspecified Comprehensive Met. Panel Today D50.9 - Iron deficiency anemia, unspecified Thyroid Stimulating Hormone Today D50.9 - Iron deficiency anemia, unspecified Ferritin Today D50.9 - Iron deficiency anemia, unspecified Vitamin B12 and Folate Today D50.9 - Iron deficiency anemia, unspecified Lipid Panel Today E78.00 - Pure hypercholesterolemia, unspecified, I10 - Essential (primary) hypertension Free T4 (Free Thyroxine) Today D50.9 - Iron deficiency anemia, unspecified IRON PROFILE Today D50.9 - Iron deficiency anemia, unspecified Reticulocyte Count Today D50.9 - Iron deficiency anemia, unspecified Vitamin D 25-OH Total Today D50.9 - Iron deficiency anemia, unspecified UA w Microscopic Today D50.9 - Iron deficiency anemia, unspecified ECG 12 lead EKG Today R42 - Dizziness and giddiness Referrals Psychiatry Outpatient Consultation Service F43.21 - Adjustment disorder with depressed mood Ophthalmology Referral H53.9 - Unspecified visual disturbance Medications: New hydrochlorothiazide 12.5 mg PO DAILY 30 tabs 3RF I10 - Essential (primary) hypertension ascorbate calcium (vitamin C) 500 mg PO BID 60 tabs 3RF escitalopram oxalate (Lexapro) 5 mg PO DAILY 30 tabs 0RF F43.21 - Adjustment disorder with depressed mood Refilled ferrous sulfate (FeroSul) 325 mg PO BID 60 tabs 3RF D50.9 - Iron deficiency anemia, unspecified ondansetron HCl 4 mg PO Q8H 10 tabs 0RF Discontinued sertraline Discontinued Reason: Patient Refused 25 mg PO DAILY 30 tabs 1RF F43.21 - Adjustment disorder with depressed mood Coding Level of Care Code Est Pt Prev Care 40-64y(15903) Diagnoses Annual physical exam Z00.00 Essential hypertension I10 Hypertension type: essential hypertension SAB (spontaneous ) O03.9 Situational depression F43.21 Dizziness R42 Vision changes H53.9 Additional Codes HAYDE-7 Assessment Billing - HAYDE-7 Assessment Tool: HAYDE-7 Assessment 40732 ([id number])
== END 2023-11-26 15:26 | disposition home or self-care (01) ==
PROVIDERS: PCP Internal Medicine; Visit Provider Internal Medicine
DX: Z00.00 Encounter for general adult medical examination without abnormal findings (principal); I10 Essential (primary) hypertension; F43.21 Adjustment disorder with depressed mood; R42 Dizziness and giddiness; H53.9 Unspecified visual disturbance
CPT/HCPCS: 99396

== ENCOUNTER 2023-11-29 09:23 | Outpatient (REF) | payer OTHER, SELFPAY ==
[2023-11-29 09:51] LABS: MANUAL DIFF FLAG NO
[2023-11-29 10:42] LABS: Appearance Urine Clear; Color Urine Dark Yellow; Glucose Urine UA Negative (Negative); Leukocyte Esterase Urine Trace (Negative); Nitrite Urine Negative (Negative); Specific Gravity - Urine >= 1.030 (1.005-1.025); UMIC TRIGGER UA YES; UMIC TRIGGER UACC YES; Urine Blood Negative (Negative); Urine Ketones 15 mg/dL (Negative); Urine Protein Trace mg/dL (Neg-Trace)
[2023-11-29 10:45] LABS: Bacteria Urine None Seen (None Seen); Hyaline Casts Urine 0-2 /LPF (0-2); RBC Urine 0-2 /HPF (0-2); WBC Urine 0-5 /HPF (0-5)
[2023-11-29 10:56] LABS: Basophils Absolute Auto 0.1 X10*3/uL (0.0-0.2); Basophils Percent Auto 1.1 % (0-2); Eosinophils Absolute Auto 0.3 X10*3/uL (0.0-0.4); Eosinophils Percent Auto 6.2 % (0-4); Hematocrit 46.4 % (37.0-47.0); Hemoglobin 15.4 g/dl (12.0-16.0); Imm Gran Abs Auto 0.01 X10*3/uL (0.00-0.03); Imm Gran Pct Auto 0.2 % (0.0-0.4); Immature Retic Fraction 3.9 % (3.0-15.9); Lymphocytes Absolute Auto 1.5 X10*3/uL (1.2-4.9); Lymphocytes Percent Auto 27.9 % (20-40); Mean Corpuscular HGB Conc 33.2 g/dl (31.0-35.0); Mean Corpuscular Volume 87.4 fL (80.0-98.0); Mean Platelet Volume 10.7 fL (9.4-12.3); Monocytes Absolute Auto 0.6 X10*3/uL (0.1-1.2); Monocytes Percent Auto 10.2 % (2-11); Neutrophils Percent Auto 54.4 % (45-73); Platelet Count 234 X10*3/uL (160-400); Red Blood Count 5.31 X10*6/uL (4.20-5.50); Retic HGB Equivalent 33.4 pg (30.0-35.0); Reticulocyte Percent 0.8 % (0.5-1.8); Reticulocytes Absolute 0.043 X10*6/uL (0.026-0.095)
[2023-11-29 11:01] LABS: White Blood Count 5.5 X10*3/uL (4.8-10.8)
[2023-11-29 11:18] LABS: Alanine Aminotransferase 19 U/L (0-31); Albumin Level 4.8 g/dL (3.5-5.0); Alkaline Phosphatase 88 U/L (39-117); Anion Gap 13 (12-20); Aspartate Amino Transferase 18 U/L (5-31); Bilirubin Total 0.7 mg/dL (0.0-1.0); Blood Urea Nitrogen 9 mg/dL (9-16); Calcium 10.3 mg/dL (8.4-10.2); Carbon Dioxide 27 mmol/L (22-29); Chloride 105 mmol/L (96-108); Cholesterol 243 mg/dL (<200); Estimated Glomerular Filt Rate > 60; Glucose Random 99 mg/dL (60-115); HDL Cholesterol 53 mg/dL (>40); Iron 102 mcg/dL (30-160); LDL Cholesterol Calculated 169 mg/dL (<100); Magnesium 2.3 mg/dL (1.6-2.6); Percent Iron Saturation 29 % (15-50); Potassium 4.1 mmol/L (3.3-5.1); Sodium 141 mmol/L (135-145); Total Iron Binding Capacity 350 mcg/dL (228-428); Total Protein 7.9 g/dL (6.5-8.0); Triglycerides 109 mg/dL (<150); Unsaturated Iron Binding 248 ug/dL
[2023-11-29 11:45] LABS: Ferritin 60 ng/mL (10-250); Thyroid Stimulating Hormone 0.49 uIU/mL (0.32-4.0)
[2023-11-29 12:56] LABS: Folate 15.4 ng/mL (> or = 4.0); Vitamin B12 1215 pg/mL (200-900)
== END 2023-11-29 09:24 | disposition home or self-care (01) ==
LOC: HO.LAB 09:23
PROVIDERS: PCP Internal Medicine; Visit Provider Internal Medicine
DX: D50.9 Iron deficiency anemia, unspecified (principal); O00.90 Unspecified ectopic pregnancy without intrauterine pregnancy; E78.00 Pure hypercholesterolemia, unspecified; I10 Essential (primary) hypertension
CPT/HCPCS: 36415; 80053; 80061; 81001; 82306; 82607; 82728; 82746; 83540; 83735; 84439; 84443; 85025; 85045

== ENCOUNTER 2024-12-25 10:08 | Outpatient (AMB) | payer OTHER, SELFPAY ==
[2024-12-25 10:57] VITALS: BP 102/70; BMI 25.2
--- NOTE | 2024-12-25 10:57 | A.OFFVIS_ITS ---
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 No complaints. Last Pap/HPV was negative in 07/03 Last Mammogram was BI-RADS 1 in 07/03 [facility] Medical History Encounter for control Psychological stress Abdominal pain, suprapubic Family planning Retained products of conception after miscarriage Acute blood loss anemia Unsatisfactory cervical Papanicolaou smear COVID-19 virus infection Complex ovarian cyst Ectopic Screening for diabetes mellitus (DM) Vaginal bleeding affecting early Gestational diabetes Depression Hx of Surgical History No history of previous surgery Family History Father Diabetes mellitus Kidney disease Paternal Grandmother HTN (hypertension) Arthritis Phlebitis Mother HIV (human immunodeficiency virus infection) Social History Household Members: Children Housing: Apartment Alcohol intake: current Alcohol intake frequency: holidays/special occasions only Comment: once a week 3 at a time Patient Tobacco Use Status: Current everyday Tobacco user Years Smoked: once a week does marijuana Substance Use Type: Marijuana Current occupational status: employed Current occupation: [employer] Sexually active: Yes Sexual orientation: Straight/Heterosexual Gender identity: Female Cognitive needs: No Hearing needs: No Vision needs: No Female Reproductive History Menstrual Age of Menarche: 13 Duration of menses: 3-5 days Date of last menstrual period: 12/24/24 control method: none Total pregnancies: 7 Full term: 4 Number of Living Children: 4 Ab spontaneous: 1 Ectopics: 1 Date of last pap smear: 05/28/23 (WNL) History of abnormal pap smear: Yes Date of Mammogram: 07/08/23 History of abnormal mammogram: No Review of Systems Const All systems reviewed & are unremarkable except as noted in HPI and below Card Reports as per HPI Resp Reports as per HPI GI Reports as per HPI and Reports no additional complaints Reports as per HPI Physical Exam Vital Signs: BMI result Body Mass Index 25.2 Const General: cooperative, healthy appearing and comfortable Chest Chest palpation & inspection: normal inspection of the chest and normal palpation of entire chest wall Breast/axilla inspection: normal inspection of the breasts and normal inspection of the axillae Breast/axilla palpation: normal palpation of the breasts, normal palpation of the axillae and no axillary lymphadenopathy Resp Effort & Inspection: normal respiratory effort Auscultation: clear to auscultation bilaterally Percussion: percussion normal Cardio Palpation: normal PMI Rate: regular rate Rhythm: regular rhythm Heart sounds: no murmurs and no rubs Peripheral pulses: Peripheral pulses 2+ throughout GI Inspection: Yes normal to inspection Palpation (GI): Soft to palpation, nontender, no guarding, not rigid and No hepatosplenomegaly present Percussion: Yes normal to percussion Auscultation: normal bowel sounds Rectal Exam - Female: deferred General: Yes bladder normal to palpation External Female Exam: No lesion Speculum Exam - Vagina: normal appearance of the vagina, normal palpation, normal vaginal discharge and not erythematous Speculum Exam - Cervix: normal appearance of the cervix and normal palpation Bimanual exam- vagina & uterus: normal bimanual exam, normal palpation, uterine size normal, bladder normal to palpation, consistency normal and normal palpation Bimanual Exam- Adnexa, other: normal adnexae, no masses and no tenderness Assessment & Plan Assessment & Plan (1) Well woman exam: Code(s): Z01.419 - Encounter for gynecological examination (general) (routine) without abnormal findings Category: Medical Plan: Cotesting not indicated this year. Mammogram ordered. Counseled the patient about the recommended dietary allowance of 1000 mg of Calcium & 600 IU of vitamin D. The patient was instructed to perform monthly self-breast exams and to schedule an annual exam in a year; All questions answered and the patient verbalized understanding. Instructed the patient to schedule annual exam in a year Orders: Orders MM tomosynthesis screening BI Today Z12.31 - Encounter for screening mammogram for malignant neoplasm of breast Coding Level of Care Code Est Pt Prev Care 40-64y(59091) Diagnoses Well woman exam Z01.419
--- OUTSIDE RECORDS SUMMARY | 2024-12-25 11:04 | XMS_ITS | Clinical Summary ---
Author Organization [facility] Address [address] [place] [phone] Phone Care Team Providers Care Prep Person Name Role Phone Pcp, Unknown Primary Care Provider Unavailabl e Allergies No known active allergies Medications 28 mg iron- 800 mcg Tab Take 1 tablet by mouth daily. 08/31/2023 Active Active Problems Problem Noted Date Diagnosed Date Supervision of high risk in first trim kody 09/02/2023 Overview (09/02/2023): OB-CMI score: 2 [09/02/2023] Group PN care? * screening * Baby ASA? * Rh * GC/Chlam * PAP * Flu * COVID-19 * Hgb * GTT * Repeat RPR * Tdap * EPDS * PPBC * GBS * Feeding Plan * Multigravida of advanced maternal age in first t rimester 09/02/2023 Overview (09/02/2023): o Recommend daily baby aspirin if other risk factors are present (nulliparity, BMI >= 30, family h/o pre-eclampsia in mother or sister, previous with SGA infant, previous stillbirth, interval of >= 10 years between pregnancies, IVF ) o Risks of aneuploidy discussed w patient. o Offered - Offer cell free DNA - Level 2 - Offer [facility] and amnio - Pt. chooses cfDNA o FKC at 36 wks o Growth U/S at 32, 36 weeks if no other risk factors o BPP wkly at 36wks o Disc option for induction after 39 wks. History of gestational diabe silverio in prior , currently 09/02/2023 Overview (09/02/2023): GDM with first . HgbA1c ordered with intake labs. Immunizations Immunization Administration Dates Next Due DTaP 06/09/2012 INFLUENZA, SPLIT VIRUS, TRIVALENT PF 06/09/2012 Pneumococcal polysaccharide PPSV23 12/05/2018 Tdap 12/28/2019 Family History Medical History Relation Comments Hypertension Paternal Grandmother Relation Status Comments Brother Alive Daughter 1 Alive Daughter 2 Alive Father Alive Maternal Grandmother Mother Paternal Grandfather Paternal Grandmother Alive Sister Alive Son 1 Alive Son 2 Alive Social History Tobacco Use Types Packs/Day Years Used Date Smoking Tobacco: Former Cigarettes Smokeless Tobacco: Never Alcohol Use Standard Drinks/Week Comments Not Currently 0 (1 standard drink = 0.6 oz pur e alcohol) Education Answer Date Recorded Are you interested in more education? Not on nimesh e 08/31/2023 Are you concerned about learning? Not on file 08/31/2023 No 08/31/2023 No 08/31/2023 Digital Access Answer Date Recorded No 08/31/2023 No 08/31/2023 Reliable internet access at home? Not on file 08/31/2023 Device with a working camera? Not on file Comments No Sex and Gender Information Value Date Recorded Sex Assigned at Not on file Legal Sex Female 10:28 AM EDT Gender Identity Not on file Sexual Orientation Not on file Last Filed Vital Signs Vital Sign Reading Time Taken Comments Blood Pressure - - Pulse - - Temperature - - Respiratory Rate - - Oxygen Saturation - - Inhaled Oxygen Concentration - - Weight - - Height 175.3 cm (5' 9 ) 09/02/2023 9:05 AM EDT Body Mass Index - - Plan of Treatment Health Maintenance Due Date Last Done Comments DEPRESSION SCREENING 1992 SMOKING Hx and SMOKELESS TOB ACCO SCREENING 1993 HEPATITIS C SCREENING 1998 HIV ONE-TIME SCREENING (18-6 5 YEARS) 1998 MAMMOGRAM 2020 PAP SMEAR 09/21/2022 09/22/2019 COVID-19 VACCINE (2023-2 5 season) 2024 Adult Td,Tdap Booster 12/27/2029 12/28/2019 PNEUMOCOCCAL VACCINES (0-49 years) Aged Out 2018 No longer eligible based on patient's age to complete this topic HEPATITIS A VACCINES Aged Out No long er eligible based on patient's age to complete this topic HIB VACCINES Aged Out No longer eligi ble based on patient's age to complete this topic MENINGOCOCCAL VACCINES (ACWY) Aged Out No longer eligible based on patient's age to complete this topic MENINGOCOCCAL VACCINES (B) Aged Out N o longer eligible based on patient's age to complete this topic Medical Devices Not on file Insurance [place] [id number] [address] [id number] [place] [id number] [place] [id number] Care Teams Prep Person Relationship Specialty Start Date End Date Pcp, Unknown PCP - General 08/31/23 Additional Source Comments The information contained in this document represents components of the legal health record. It is not the complete legal health record.[facility]
--- OUTSIDE RECORDS SUMMARY | 2024-12-25 11:04 | XMS_ITS | Clinical Summary ---
Author Organization [facility] Address [address] [place] [address] Care Team Providers Care [employer] Manager Name Role Phone Unavailable Primary Care Provider Unavailabl e Surgical History Surgery Date Site/Laterality Comments CERVICAL BIOPSY W/ LOOP ELECTRODE EXCISION PROCEDURE: WI CONIZATION CERVIX W/WO D&C RPR ELTRD EXC Medical History Medical History Date Comments Anxiety 09/24/2016 DX:Anxiety History of abnormal cervical Pap smear 7 DX:History of abnormal cervical Pap smear; COMMENT: 10/17/2014 atypical squamous cells, 2016 pap neg Calcific tendonitis of right shoulder 09/24/2016 DX:Calcific tendonitis of right shoulder; COMMENT: 07/2014 NEOS, cortisone inj w/ good response Neck pain, chronic 09/24/2016 DX:Neck pain, chronic Degenerative disc disease, lumbar 09/24/2016 DX:Degenerative disc disease, lumbar; COMMENT: L4-L5 central disc herniation Palpitations 09/24/2016 DX:Palpitations Dizziness 09/24/2016 DX:Dizziness Allergic rhinitis 09/24/2016 DX:Allergic rh initis Sciatica 09/24/2016 DX:Sciatica Family History Medical History Relation Name Comments No Known Problems Brother 1 No Known Problems Brother 2 No Known Problems Brother 3 No Known Problems Daughter Diabetes Father Hypertension Father hyperlipidemia, Other: hepatitis C Father Other: kidney disease Father Heart attack Maternal Grandmother Diabetes Mother depression, hyp erlipidemia, HTN Other: hiv Mother from transfer r ecords No Known Problems Other Arthritis Paternal Grandmother Depression Paternal Grandmother Hypertension Paternal Grandmother Other: phlebitis Paternal Grandmother No Known Problems Sister 1 No Known Problems Sister 2 Other: heart disease Uncle Other: hepatitis Uncle Other: kidney disease Uncle Breast cancer Neg Hx Cervical cancer Neg Hx Relation Name Status Comments Brother 1 Alive Brother 2 Alive Brother 3 Alive Daughter Alive Father Alive Maternal Grandfather Maternal Grandmother Mother Other Alive Paternal Grandfather Paternal Grandmother Alive Sister 1 Alive Sister 2 Alive Uncle Social History Tobacco Use Types Packs/Day Years Used Date Smoking Tobacco: Former Smokeless Tobacco: Never Alcohol Use Standard Drinks/Week Comments No 0 (1 standard drink = 0.6 oz pur e alcohol) Comments Unknown Sex and Gender Information Value Date Recorded Sex Assigned at Not on file Legal Sex Female 4:37 AM EST Gender Identity Not on file Sexual Orientation Not on file Obstetrics History Plan of Treatment Health Maintenance Due Date Last Done Comments Breast Cancer Screening 1980 Hepatitis B Vaccines (1 of 3 - 19+ 3-dose series) 08/25/1999 Cervical Cancer Screening: P ap Smear 09/21/2022 09/22/2019 COVID-19 Vaccine (1 - 2023-2 5 season) 2024 Depression Screening 05/10/2024 DTaP,Tdap,and Td Vaccines (2 - Td or Tdap) 01/04/2025 01/04/2015 Influenza Vaccine (#1) 2025 HIB Vaccines Aged Out No longer eligi ble based on patient's age to complete this topic HPV Vaccines Aged Out No longer eligi ble based on patient's age to complete this topic Hepatitis A Vaccines Aged Out No long er eligible based on patient's age to complete this topic IPV Vaccines Aged Out No longer eligi ble based on patient's age to complete this topic MMR Vaccines Aged Out No longer eligi ble based on patient's age to complete this topic Meningococcal ACWY Vaccine Aged Out N o longer eligible based on patient's age to complete this topic Meningococcal B Vaccine Aged Out No l onger eligible based on patient's age to complete this topic Pneumococcal Vaccine: Pediat rics (0 to 5 Years) and At-Risk Patients (6 to 49 Years) Aged Out No longer eligi ble based on patient's age to complete this topic RSV Immunization Patients Un tong 20 months Aged Out No longer eligible b ased on patient's age to complete this topic Varicella Vaccines Aged Out No longer eligible based on patient's age to complete this topic Procedures Procedure Name Priority Date/Time Associated Diagnosis Comments PAP SMEAR Routine 09/22/2019 from Last 3 Months or Most Recently Relevant to Health Maintenance Results * Pap smear (09/22/2019) 09/22/2019 Narrative HISTORICAL TESTING LAB RESULTING AGENCY - 09/28/2019 8:05 AM EDT [id number] THINPREP PAP, IMAGED: NEGATIVE FOR SQUAMOUS INTRAEPITHELIAL LESION AND MALIGNANCY . KAILA LONG , CT(ASCP) (CASE ELECTRONICALLY SIGNED 09 27 2019) RESULT OF APTIMA HIGH RISK HPV ASSAY: HIGH RISK HPV: NEGATIVE (SEROTYPES 16,18,31,33,35,39,45,51,52,56,58,59,66,68) COMPLETED ON 2019-09-25 ADEQUACY: SATISFACTORY ENDOCERVICAL/TRANSFORMATION ZONE COMPONENT ABSENT. SOURCE: THINPREP PAP HPV ANY DX: REFLEX 16 AND 18, CERVICAL, IMAGED CLINICAL INFORMATION: HPV ANY DIAGNOSIS. , PAP HX NEG. Z12.4 Kaila Parnell DO LAB CYTOLOGY ORDERABLES Final Result HISTORICAL TESTING LAB RESULTING AGENCY from Last 3 Months or Most Recently Relevant to Health Maintenance
== END 2024-12-25 11:10 | disposition home or self-care (01) ==
LOC: HO.HWS 10:09
PROVIDERS: PCP Internal Medicine; Visit Provider Obstetrics & Gynecology
DX: Z01.419 Encounter for gynecological examination (general) (routine) without abnormal findings (principal)
CPT/HCPCS: 99396; 99459

== ENCOUNTER → 2024-12-25 10:08 | Outpatient (BNVA) | payer OTHER, SELFPAY | PROVIDERS: PCP Internal Medicine; Visit Provider Obstetrics & Gynecology | DX: Z01.419 Encounter for gynecological examination (general) (routine) without abnormal findings (principal) | CPT/HCPCS: 99396 ==